=== PATIENT | male | born 1950 | race Caucasian/White ===

== ENCOUNTER 2016-08-25 10:45 | Inpatient (IN) | payer OTHER, BC ==
[2016-08-20 13:37] VITALS: BMI 24.1
[2016-08-25] MEDS ORDERED: MINERAL OIL 25 ML OIL ONE (13:01)
[2016-08-25] MEDS ORDERED: LIDOCAINE 1%/EPI 1:100000 (50 ML MULTI DOSE VIAL) ONE (13:01)
[2016-08-25] MEDS ORDERED: LIDOCAINE HCL/PF 2% SDV 5ML VIAL ONE (13:22)
[2016-08-25] MEDS ORDERED: ROCURONIUM BROMIDE 50 MG/5 ML VIAL ONE (13:22)
[2016-08-25] MEDS ORDERED: MIDAZOLAM HCL 2 MG/2 ML SINGLE DOSE VIAL ONE (13:22)
[2016-08-25] MEDS ORDERED: PROPOFOL 20 ML ONE (13:22)
[2016-08-25] MEDS ORDERED: ceFAZolin SODIUM 1 GM VIAL IVPB ONE (13:58)
[2016-08-25] MEDS ORDERED: ONDANSETRON 4 MG/2 ML VIAL ONE ×2 (14:07→17:15)
[2016-08-25] MEDS ORDERED: DEXAMETHASONE SOD PHOSPHATE 4 MG/1 ML VIAL ONE (14:07)
[2016-08-25] MEDS ORDERED: ceFAZolin SODIUM 1 GM VIAL ONE (14:07)
[2016-08-25] MEDS ORDERED: LIDOCAINE 1%/EPI 1:100000 (50 ML MULTI DOSE VIAL) INF ONE (14:28)
[2016-08-25] MEDS ORDERED: DESFLURANE GAS 240 ML BOTTLE IH ONE (15:40)
[2016-08-25] MEDS ORDERED: BACITRACIN 30 GM TUBE TOPICAL OINTMENT ONE (16:55)
[2016-08-25] MEDS ORDERED: ONDANSETRON 4 MG/2 ML VIAL IVPUSH PRN ×2 (18:01→19:10)
[2016-08-25] MEDS ORDERED: BACLOFEN 10 MG TABLET (FP) PO ONE ×2 (18:16→22:45)
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
[2016-08-25] MEDS: ASCORBIC ACID 500 MG TABLET (FP) PO SCH (22:47)
[2016-08-25] MEDS: GABAPENTIN 300 MG CAPSULE (FP) PO SCH (22:47)
[2016-08-25] MEDS: CEFAZOLIN 1 GM/D5W 50 ML IVPB SCH (22:47)
[2016-08-25] MEDS: DOCUSATE SODIUM 100 MG CAPSULE (FP) PO SCH (22:47)
[2016-08-26] MEDS ORDERED: CEFAZOLIN 1 GM/D5W 50 ML IVPB SCH (02:00)
[2016-08-26] MEDS: CEFAZOLIN 1 GM/D5W 50 ML IVPB SCH ×3 (04:02→17:19)
[2016-08-26] MEDS: DOCUSATE SODIUM 100 MG CAPSULE (FP) PO SCH ×3 (06:13→22:16)
[2016-08-26] MEDS ORDERED: PT OWN MED DRAWER 7, Y5N ONE (08:26)
[2016-08-26] MEDS: HEPARIN NA (PORCINE) 5,000 UNITS/ML 1ML VIAL SQ SCH ×3 (08:34→22:16)
[2016-08-26] MEDS: PYRIDOXINE HCL (B-6) 50 MG TABLET (FP) PO SCH (09:04)
[2016-08-26] MEDS: FERROUS SO4 325 MG TABLET (FP) PO SCH (09:04)
[2016-08-26] MEDS: CYANOCOBALAMIN 1,000 MCG TABLET (FP) PO SCH (09:04)
[2016-08-26] MEDS: ASCORBIC ACID 500 MG TABLET (FP) PO SCH ×2 (09:04→22:16)
[2016-08-26 12:04] LABS: BASOPHIL 0.5 % (0-2.0); EOSINOPHIL 1.7 % (0-4.5); MCH 29.5 pg (25.7-33.7); MCHC 32.7 g/dl (32.0-35.9); MEAN CELL VOLUME 90.1 fl (80-96); MEAN PLT VOLUME 8.3 fl (7.5-11.1); NEUTROPHILS 63.5 % (42.8-82.8); PLATELET COUNT 251 K/MM3 (134-434); RDW 15.4 % (11.9-15.9); WHITE BLOOD COUNT 7.7 K/mm3 (4.0-10.0)
--- NOTE | 2016-08-26 12:12 | PN ---
Progress Note (short form) - Note Progress Note: Anesthesia POD#1 S/P Sacral debridement & skin graft under GA prone position Patient did well,no N/V ,VSS,food is advanced. No pressure injuries. A/P No complications to anesthesia seen. Marilee Arauz.
[2016-08-26 12:45] LABS: CALCIUM 8.7 mg/dL (8.5-10.1); CREATININE 0.6 mg/dL (0.7-1.3)
--- NOTE | 2016-08-26 13:36 | PN ---
Progress Note (short form) - Note Progress Note: Post Day 1 Afebrile, awake alert, not in respiratory distress, no post op spasms On clinitron bed, looks comfortable no issues with lower back SHANTI drainage noted, minimal at the moment Selected Entries 08/25/16 08/26/16 22:00 08:00 Temperature 98.1 F Pulse Rate 90 Respiratory 18 18 Rate Blood Pressure 112/58 100/57 Laboratory Tests 08/26/16 12:01 WBC 7.7 Hgb 10.8 L D Hct 33.0 L Patient informed that the entire sacral bone could not be covered with muscle flap, large area and extensive scarring, partial grafting was done on the bone , very thin graft was chosen to assist early capillary filling Unknown whether more procedures will be required At present will continue on clinitron to assist healing and prevention of flap trauma and loss of graft . patient is paralyzed thus rotation is a problem as shear force may damage flap and graft Plan : Dressing change to evaluate all incisions and graft on Wednesday
--- NOTE | 2016-08-26 15:49 | PN ---
Physical Exam: SUBJECTIVE: Post op case of sacral flap OBJECTIVE: Vital Signs Period Temp Pulse Resp BP Sys/Garcia Pulse Ox Last 24 Hr 97.6 F-98.5 F 64-92 14-20 99-144/57-95 99-100 GENERAL: The patient is awake, alert, and fully oriented, in no acute distress. HEAD: Normal with no signs of trauma. EYES: PERRL, extraocular movements intact, sclera anicteric, conjunctiva clear. No ptosis. ENT: Ears normal, nares patent, oropharynx clear without exudates, moist mucous membranes. NECK: Trachea midline, full range of motion, supple. LUNGS: Breath sounds equal, clear to auscultation bilaterally, no wheezes, no crackles, no accessory muscle use. HEART: Regular rate and rhythm, S1, S2 without murmur, rub or gallop. ABDOMEN: Soft, nontender, nondistended, normoactive bowel sounds, colostomy bag in situ, ai present, bs +, midline scar present NEUROLOGICAL: Cranial nerves II-XII intact. Normal speech. Flaccid lower extremities, sensation absent. PSYCHIATRIC: Cooperative. Good eye contact. Appropriate mood and affect. SKIN: Sacral dressing clean and dry, drain with scant sanguinous output. Laboratory Results - last 24 hr 08/25/16 08/25/16 08/26/16 10:56 15:44 12:01 WBC RBC Hgb Hct MCV MCHC RDW Plt Count MPV Neutrophils % Lymphocytes % Monocytes % Eosinophils % Basophils % Sodium 140 Potassium 3.9 Chloride 105 Carbon Dioxide 28 Anion Gap 7 L BUN 14 D Creatinine 0.6 L D Random Glucose 84 Calcium 8.7 Antibody Identification Not Reportable Antigen Identification E Antigen - NEGATIVE 08/26/16 12:01 WBC 7.7 RBC 3.66 L Hgb 10.8 L D Hct 33.0 L MCV 90.1 MCHC 32.7 RDW 15.4 Plt Count 251 D MPV 8.3 Neutrophils % 63.5 Lymphocytes % 25.2 Monocytes % 9.1 Eosinophils % 1.7 Basophils % 0.5 Sodium Potassium Chloride Carbon Dioxide Anion Gap BUN Creatinine Random Glucose Calcium Antibody Identification Antigen Identification Active Medications Generic Name Dose Route Start Last Admin Trade Name Freq PRN Reason Stop Dose Admin Ascorbic Acid 500 mg 08/25/16 22:00 08/26/16 09:04 Vitamin C - PO 500 mg BID SREEKANTH Administration Cyanocobalamin 1,000 mcg 08/26/16 10:00 08/26/16 09:04 Vitamin B12 - PO 1,000 mcg DAILY SREEKANTH Administration Docusate Sodium 100 mg 08/25/16 22:00 08/26/16 13:58 Colace - PO 100 mg TID SREEKANTH Administration Ferrous Sulfate 325 mg 08/26/16 10:00 08/26/16 09:04 Feosol - PO 325 mg DAILY SREEKANTH Administration Gabapentin 600 mg 08/25/16 22:00 08/25/16 22:47 Neurontin - PO 600 mg HS SREEKANTH Administration Heparin Sodium (Porcine) 5,000 unit 08/26/16 08:00 08/26/16 13:58 Heparin - SQ 5,000 unit TID SREEKANTH Administration Cefazolin Sodium 50 mls @ 100 mls/hr 08/25/16 19:00 08/26/16 09:04 Ancef 1 Gm Premixed Ivpb - IVPB 08/28/16 18:59 100 mls/hr Q8H-IV SREEKANTH Administration Pyridoxine HCl 50 mg 08/26/16 10:00 08/26/16 09:04 Vitamin B6 - PO 50 mg DAILY SREEKANTH Administration ASSESSMENT/PLAN: 66 year old male admitted for post-operative management of sacral decubitus debridement/flap reconstruction/skin grafting. Sacral decubitus ulcer s/p flap and skin grafting wbc 7.7 on cefazolin 1gm iv 8hr Clinitron bed high protien diet plastic surgery on case fluid : orally allowed electrolyte : normal nutrition : high protein DVT pro on heparin gi pro : not required dispo : admit in med surg Visit type - Emergency Visit Emergency Visit: Yes ED Registration Date: 08/25/16 Care time: The patient presented to the Emergency Department on the above date and was hospitalized for further evaluation of their emergent condition. - New Patient This patient is new to me today: Yes Date on this admission: 08/26/16 - Critical Care Critical Care patient: No
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
[2016-08-26] MEDS: GABAPENTIN 300 MG CAPSULE (FP) PO SCH (22:16)
[2016-08-27] MEDS: CEFAZOLIN 1 GM/D5W 50 ML IVPB SCH ×3 (04:00→18:03)
[2016-08-27] MEDS: DOCUSATE SODIUM 100 MG CAPSULE (FP) PO SCH ×3 (06:12→21:22)
[2016-08-27] MEDS: HEPARIN NA (PORCINE) 5,000 UNITS/ML 1ML VIAL SQ SCH ×3 (06:12→21:22)
[2016-08-27 08:10] LABS: BASOPHIL 0.3 % (0-2.0); EOSINOPHIL 2.3 % (0-4.5); MCH 29.6 pg (25.7-33.7); MCHC 32.9 g/dl (32.0-35.9); MEAN PLT VOLUME 8.8 fl (7.5-11.1); NEUTROPHILS 63.8 % (42.8-82.8); PLATELET COUNT 220 K/MM3 (134-434); RDW 14.9 % (11.9-15.9); WHITE BLOOD COUNT 5.8 K/mm3 (4.0-10.0)
[2016-08-27] MEDS ORDERED: PT OWN MED DRAWER 7, Y5N ONE (09:23)
[2016-08-27] MEDS: PYRIDOXINE HCL (B-6) 50 MG TABLET (FP) PO SCH (09:26)
[2016-08-27] MEDS: FERROUS SO4 325 MG TABLET (FP) PO SCH (09:26)
[2016-08-27] MEDS: PANTOPRAZOLE 40 MG TABLET (FP) PO SCH (09:26)
[2016-08-27] MEDS: ASCORBIC ACID 500 MG TABLET (FP) PO SCH ×2 (09:26→21:22)
[2016-08-27] MEDS: CYANOCOBALAMIN 1,000 MCG TABLET (FP) PO SCH (09:26)
[2016-08-27] MEDS ORDERED: LACTULOSE 20 GM/30 ML UDC (FOR ORAL USE ONLY) PO SCH (10:00)
--- NOTE | 2016-08-27 12:16 | PN ---
Physical Exam: SUBJECTIVE: Patient seen and examined, feels better, states he takes laculose and pantoprazole every day. OBJECTIVE: Vital Signs Period Temp Pulse Resp BP Sys/Garcia Pulse Ox Last 24 Hr 97.9 F-98.5 F 71-73 18-20 101-103/56-65 99 GENERAL: The patient is awake, alert, and fully oriented, in no acute distress. HEAD: Normal with no signs of trauma. EYES: PERRL, extraocular movements intact, sclera anicteric, conjunctiva clear. No ptosis. ENT: Ears normal, nares patent, oropharynx clear without exudates, moist mucous membranes. NECK: Trachea midline, full range of motion, supple. LUNGS: Breath sounds equal, clear to auscultation bilaterally, no wheezes, no crackles, no accessory muscle use. HEART: Regular rate and rhythm, S1, S2 without murmur, rub or gallop. ABDOMEN: Soft, nontender, nondistended, normoactive bowel sounds, colostomy bag in situ, ai present, bs +, midline scar present NEUROLOGICAL: Cranial nerves II-XII intact. Normal speech. Flaccid lower extremities, sensation absent. PSYCHIATRIC: Cooperative. Good eye contact. Appropriate mood and affect. SKIN: Sacral dressing clean and dry, drain with scant sanguinous output. Laboratory Results - last 24 hr 08/26/16 08/26/16 08/27/16 12:01 12:01 06:30 WBC 7.7 5.8 RBC 3.66 L 3.50 L Hgb 10.8 L D 10.4 L Hct 33.0 L 31.5 L MCV 90.1 90.0 MCHC 32.7 32.9 RDW 15.4 14.9 Plt Count 251 D 220 MPV 8.3 8.8 Neutrophils % 63.5 63.8 Lymphocytes % 25.2 25.2 Monocytes % 9.1 8.4 Eosinophils % 1.7 2.3 Basophils % 0.5 0.3 Sodium 140 Potassium 3.9 Chloride 105 Carbon Dioxide 28 Anion Gap 7 L BUN 14 D Creatinine 0.6 L D Random Glucose 84 Calcium 8.7 Active Medications Generic Name Dose Route Start Last Admin Trade Name Freq PRN Reason Stop Dose Admin Ascorbic Acid 500 mg 08/25/16 22:00 08/27/16 09:26 Vitamin C - PO 500 mg BID SREEKANTH Administration Cyanocobalamin 1,000 mcg 08/26/16 10:00 08/27/16 09:26 Vitamin B12 - PO 1,000 mcg DAILY SREEKANTH Administration Docusate Sodium 100 mg 08/25/16 22:00 08/27/16 06:12 Colace - PO 100 mg TID SREEKANTH Administration Ferrous Sulfate 325 mg 08/26/16 10:00 08/27/16 09:26 Feosol - PO 325 mg DAILY SREEKANTH Administration Gabapentin 600 mg 08/25/16 22:00 08/26/16 22:16 Neurontin - PO 600 mg HS SREEKANTH Administration Heparin Sodium (Porcine) 5,000 unit 08/26/16 08:00 08/27/16 06:12 Heparin - SQ 5,000 unit TID SREEKANTH Administration Cefazolin Sodium 50 mls @ 100 mls/hr 08/25/16 19:00 08/27/16 09:26 Ancef 1 Gm Premixed Ivpb - IVPB 08/28/16 18:59 100 mls/hr Q8H-IV SREEKANTH Administration Lactulose 10 gm 08/27/16 10:00 08/27/16 09:26 Cephulac (Oral Use) PO 10 gm DAILY SREEKANTH Administration Pantoprazole Sodium 40 mg 08/27/16 10:00 08/27/16 09:26 Protonix - PO 40 mg DAILY SREEKANTH Administration Pyridoxine HCl 50 mg 08/26/16 10:00 08/27/16 09:26 Vitamin B6 - PO 50 mg DAILY SREEKANTH Administration ASSESSMENT/PLAN: 66 year old male admitted for post-operative management of sacral decubitus debridement/flap reconstruction/skin grafting. Sacral decubitus ulcer s/p flap and skin grafting wbc 7.7 on cefazolin 1gm iv 8hr Clinitron bed high protien diet plastic surgery on case, next dressing change on wednesday fluid : orally allowed electrolyte : normal nutrition : high protein DVT pro on heparin gi pro : not required dispo : admit in med surg Visit type - Emergency Visit Emergency Visit: Yes ED Registration Date: 08/25/16 Care time: The patient presented to the Emergency Department on the above date and was hospitalized for further evaluation of their emergent condition. - New Patient This patient is new to me today: No - Critical Care Critical Care patient: No
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
[2016-08-27] MEDS: LACTULOSE 20 GM/30 ML UDC (FOR ORAL USE ONLY) PO SCH (21:21)
[2016-08-27] MEDS: GABAPENTIN 300 MG CAPSULE (FP) PO SCH (21:22)
[2016-08-28] MEDS: CEFAZOLIN 1 GM/D5W 50 ML IVPB SCH ×3 (01:30→18:26)
[2016-08-28] MEDS: DOCUSATE SODIUM 100 MG CAPSULE (FP) PO SCH ×3 (06:18→21:07)
[2016-08-28] MEDS: HEPARIN NA (PORCINE) 5,000 UNITS/ML 1ML VIAL SQ SCH ×3 (06:18→21:07)
--- NOTE | 2016-08-28 08:22 | PN ---
Physical Exam: SUBJECTIVE: Patient seen and examined. feels uncomfortable due to lack of bowel movements for past four days. maintains good appetite, continues to pass gas denies fever, chest pain, SOB. OBJECTIVE: Vital Signs Period Temp Pulse Resp BP Sys/Garcia Pulse Ox Last 24 Hr 98.0 F-98.8 F 60-69 20-20 101-113/61-69 100-100 GENERAL: The patient is awake, alert, and fully oriented, in no acute distress. HEAD: Normal with no signs of trauma. EYES: extraocular movements intact, sclera anicteric, conjunctiva clear. ENT: Ears normal, nares patent, oropharynx clear without exudates, moist mucous membranes. NECK: Trachea midline, full range of motion, supple. LUNGS: Breath sounds clear. HEART: Regular rate and rhythm, S1, S2 without murmur, rub or gallop. ABDOMEN: Soft, nontender, nondistended, normoactive bowel sounds, ostomy bag in place without surrounding skin breakdown or erythema, pink moist mucus membrane with gas in bag - no fecal matter. EXTREMITIES: cool, atrophy b/l. NEUROLOGICAL: Normal speech, non-ambulatory PSYCH: Normal mood, normal affect. gold(condom cath) in place Active Medications Generic Name Dose Route Start Last Admin Trade Name Freq PRN Reason Stop Dose Admin Ascorbic Acid 500 mg 08/25/16 22:00 08/27/16 21:22 Vitamin C - PO 500 mg BID SREEKANTH Administration Cyanocobalamin 1,000 mcg 08/26/16 10:00 08/27/16 09:26 Vitamin B12 - PO 1,000 mcg DAILY SREEKANTH Administration Docusate Sodium 100 mg 08/25/16 22:00 08/28/16 06:18 Colace - PO 100 mg TID SREEKANTH Administration Ferrous Sulfate 325 mg 08/26/16 10:00 08/27/16 09:26 Feosol - PO 325 mg DAILY SREEKANTH Administration Gabapentin 600 mg 08/25/16 22:00 08/27/16 21:22 Neurontin - PO 600 mg HS SREEKANTH Administration Heparin Sodium (Porcine) 5,000 unit 08/26/16 08:00 08/28/16 06:18 Heparin - SQ 5,000 unit TID SREEKANTH Administration Cefazolin Sodium 50 mls @ 100 mls/hr 08/25/16 19:00 08/28/16 01:30 Ancef 1 Gm Premixed Ivpb - IVPB 08/28/16 18:59 100 mls/hr Q8H-IV SREEKANTH Administration Lactulose 10 gm 08/27/16 22:00 08/27/16 21:21 Cephulac (Oral Use) PO 10 gm BID SREEKANTH Administration Pantoprazole Sodium 40 mg 08/27/16 10:00 08/27/16 09:26 Protonix - PO 40 mg DAILY SREEKANTH Administration Pyridoxine HCl 50 mg 08/26/16 10:00 08/27/16 09:26 Vitamin B6 - PO 50 mg DAILY SREEKANTH Administration ASSESSMENT/PLAN: 66 yr old man with HTN, paraplegia, h/o of PUD with GI bleed admitted for skin graft of sacral decubitus ulcer. #Skin graft POD#3 - wound care/dressing change as per Dr. Arenas - ancef 1gm 08/25-08/28 - vitamin c 500mg qd #Constipation - lactulose 10gm po bid - colace 100mg po tid #anemia (normochrom/normocytic, chronic) - vitamin b12 po daily - vit b6 50mg po daily - feosol 325 po daily #hx of PUD - protonix 40mg po daily #DVT prophylaxis - Hep 5000 suq TID #pain - gabapentin 600mg po hs #Diet - high protein diet Visit type - Emergency Visit Emergency Visit: No - New Patient This patient is new to me today: Yes Date on this admission: 08/28/16 - Critical Care Critical Care patient: No - Discharge Referral Referred to [facility] No
[2016-08-28] MEDS ORDERED: PT OWN MED DRAWER 7, Y5N ONE (09:36)
[2016-08-28] MEDS: PYRIDOXINE HCL (B-6) 50 MG TABLET (FP) PO SCH (09:40)
[2016-08-28] MEDS: PANTOPRAZOLE 40 MG TABLET (FP) PO SCH (09:40)
[2016-08-28] MEDS: FERROUS SO4 325 MG TABLET (FP) PO SCH (09:40)
[2016-08-28] MEDS: ASCORBIC ACID 500 MG TABLET (FP) PO SCH ×2 (09:40→21:07)
[2016-08-28] MEDS: CYANOCOBALAMIN 1,000 MCG TABLET (FP) PO SCH (09:40)
[2016-08-28] MEDS: LACTULOSE 20 GM/30 ML UDC (FOR ORAL USE ONLY) PO SCH ×2 (09:41→21:12)
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
--- NOTE | 2016-08-28 13:12 | PN ---
Progress Note (short form) - Note Progress Note: Post Op day 3 Flap closure and skin graft over sacral bone/periosteum Awake alert not in any distress. Does c/o not moving his bowel No cramps has colostomy Dressing changed Graft pink and adherent, flap circulation intact, all suture lines intact, donor site clean , No active infection, on odor no pus New dressing done Selected Entries 08/28/16 08:00 Temperature 98 F Pulse Rate 76 Respiratory 18 Rate Blood Pressure 97/60 Laboratory Tests 08/27/16 06:30 WBC 5.8 Hgb 10.4 L Hct 31.5 L Plan : 1 Skin graft is at most delicate stage of healing , any movement will dislodge the graft 2. Flap also very early stage of healing and cannot tolerate any pressure, needs clinitron 3. Dr Escobar note read and appreciated, aware of no BM and addressing it with lactulose 4. Patient informed of my plans...continue clinitron bed for another week than SNF with low alternating pressure relief bed
[2016-08-28] MEDS: MAGNESIUM HYDROX 2400MG/30ML ORAL SUSPENSION 30 ML CUP PO PRN ×2 (14:02→21:07)
[2016-08-28] MEDS: GABAPENTIN 300 MG CAPSULE (FP) PO SCH (21:07)
[2016-08-29] MEDS: HEPARIN NA (PORCINE) 5,000 UNITS/ML 1ML VIAL SQ SCH ×3 (06:01→22:00)
[2016-08-29] MEDS: DOCUSATE SODIUM 100 MG CAPSULE (FP) PO SCH ×3 (06:01→21:59)
[2016-08-29] MEDS: MAGNESIUM HYDROX 2400MG/30ML ORAL SUSPENSION 30 ML CUP PO PRN (06:06)
[2016-08-29] MEDS: PYRIDOXINE HCL (B-6) 50 MG TABLET (FP) PO SCH (09:09)
[2016-08-29] MEDS: FERROUS SO4 325 MG TABLET (FP) PO SCH (09:09)
[2016-08-29] MEDS: LACTULOSE 20 GM/30 ML UDC (FOR ORAL USE ONLY) PO SCH ×2 (09:09→21:59)
[2016-08-29] MEDS: ASCORBIC ACID 500 MG TABLET (FP) PO SCH ×2 (09:09→21:59)
[2016-08-29] MEDS: PANTOPRAZOLE 40 MG TABLET (FP) PO SCH (09:10)
[2016-08-29] MEDS: CYANOCOBALAMIN 1,000 MCG TABLET (FP) PO SCH (09:10)
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
[2016-08-29] MEDS: POLYETHYLENE GLYCOL 3350 119 GM BTL PO SCH ×2 (14:20→22:04)
[2016-08-29] MEDS: GABAPENTIN 300 MG CAPSULE (FP) PO SCH (21:59)
[2016-08-30] MEDS: HEPARIN NA (PORCINE) 5,000 UNITS/ML 1ML VIAL SQ SCH ×3 (06:17→21:42)
[2016-08-30] MEDS: DOCUSATE SODIUM 100 MG CAPSULE (FP) PO SCH ×3 (06:17→21:41)
[2016-08-30] MEDS: PYRIDOXINE HCL (B-6) 50 MG TABLET (FP) PO SCH (10:31)
[2016-08-30] MEDS: FERROUS SO4 325 MG TABLET (FP) PO SCH (10:31)
[2016-08-30] MEDS: PANTOPRAZOLE 40 MG TABLET (FP) PO SCH (10:31)
[2016-08-30] MEDS: CYANOCOBALAMIN 1,000 MCG TABLET (FP) PO SCH (10:31)
[2016-08-30] MEDS: ASCORBIC ACID 500 MG TABLET (FP) PO SCH ×2 (10:31→21:41)
[2016-08-30] MEDS: LACTULOSE 20 GM/30 ML UDC (FOR ORAL USE ONLY) PO SCH ×2 (10:31→21:43)
[2016-08-30] MEDS: POLYETHYLENE GLYCOL 3350 119 GM BTL PO SCH ×2 (10:35→21:42)
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
[2016-08-30] MEDS: GABAPENTIN 300 MG CAPSULE (FP) PO SCH (21:41)
[2016-08-31] MEDS: DOCUSATE SODIUM 100 MG CAPSULE (FP) PO SCH ×3 (06:29→22:14)
[2016-08-31] MEDS: HEPARIN NA (PORCINE) 5,000 UNITS/ML 1ML VIAL SQ SCH ×3 (06:30→22:14)
--- NOTE | 2016-08-31 08:32 | PN ---
Physical Exam: SUBJECTIVE: Patient seen and examined Feels more comfortable since having bowel movement. will not be taking miralax until he feels he needs it again. Denies SOB, chest pain. will use incentive spirometer hourly. OBJECTIVE: Vital Signs Period Temp Pulse Resp BP Sys/Garcia Pulse Ox Last 24 Hr 97.4 F-98.6 F 63-81 20-20 81-96/50-61 97 GENERAL: The patient is awake, alert, and fully oriented, in no acute distress. HEAD: Normal with no signs of trauma. EYES: extraocular movements intact, sclera anicteric, conjunctiva clear ENT: Ears normal, nares patent, oropharynx clear without exudates, moist mucous membranes. NECK: Trachea midline, full range of motion, supple. LUNGS: Breath sounds equal, fine crackles at b/l bases. HEART: Regular rate and rhythm, S1, S2 without murmur, rub or gallop. ABDOMEN: Soft, nontender, nondistended, +bowel sounds, colostomy with dark nonbloody stool, surrounding area without erythema. EXTREMITIES: 2+ pulses in UE, warm, well-perfused. b/l LE cool with atrophy, pt paraplegic. NEUROLOGICAL: Normal speech, PSYCH: Normal mood, normal affect. SKIN: Warm, dry, normal turgor, no rashes or lesions noted Condom gold in place - clear yellow urine SHANTI drain: serosanginous fluid Active Medications Generic Name Dose Route Start Last Admin Trade Name Freq PRN Reason Stop Dose Admin Amino Acids 30 ml 08/31/16 17:30 Prostat Sugar-Free Packet - PO BID@0800,1730 [facility] Ascorbic Acid 500 mg 08/25/16 22:00 08/31/16 09:41 Vitamin C - PO 500 mg BID SREEKANTH Administration Cyanocobalamin 1,000 mcg 08/26/16 10:00 08/31/16 09:41 Vitamin B12 - PO 1,000 mcg DAILY SREEKANTH Administration Docusate Sodium 100 mg 08/25/16 22:00 08/31/16 06:29 Colace - PO 100 mg TID SREEKANTH Administration Ferrous Sulfate 325 mg 08/26/16 10:00 08/31/16 09:41 Feosol - PO 325 mg DAILY SREEKANTH Administration Gabapentin 600 mg 08/25/16 22:00 08/30/16 21:41 Neurontin - PO 600 mg HS SREEKANTH Administration Heparin Sodium (Porcine) 5,000 unit 08/26/16 08:00 08/31/16 06:30 Heparin - SQ 5,000 unit TID SREEKANTH Administration Lactulose 10 gm 08/27/16 22:00 08/31/16 09:40 Cephulac (Oral Use) PO 10 gm BID SREEKANTH Administration Magnesium Hydroxide 30 ml 08/28/16 12:06 08/29/16 06:06 Milk Of Magnesia - PO 30 ml Q8H PRN Administration INDIGESTION Pantoprazole Sodium 40 mg 08/27/16 10:00 08/31/16 09:41 Protonix - PO 40 mg DAILY SREEKANTH Administration Polyethylene Glycol 17 gm 08/29/16 12:00 08/31/16 09:41 Miralax (For Daily Use) - PO Not Given BID SREEKANTH Pyridoxine HCl 50 mg 08/26/16 10:00 08/31/16 09:41 Vitamin B6 - PO 50 mg DAILY SREEKANTH Administration CBC, BMP 08/31/16 11:30 08/31/16 11:30 ASSESSMENT/PLAN: 66 yr old man with HTN, paraplegia, h/o of PUD with GI bleed admitted for skin graft of sacral decubitus ulcer. - pt becoming hypotensive, 81-96/50-61, encourage fluid intake, cbc and bmp wnl , no leucocytosis as sign of infection or elevation in cr to indicate pre-renal hypoperfusion. #Skin graft POD#6 - wound care/dressing change as per Dr. Arenas - s/p ancef 1gm 08/25-08/28 - vitamin c 500mg qd #Constipation - lactulose 10gm po bid - colace 100mg po tid - miralax 17gm po bid #anemia (normochrom/normocytic, chronic) - vitamin b12 po daily - vit b6 50mg po daily - feosol 325 po daily #hx of PUD - protonix 40mg po daily #DVT prophylaxis - Hep 5000 subq TID #pain - gabapentin 600mg po hs #Diet - high protein diet, prostat 30ml/bid Visit type - Emergency Visit Emergency Visit: No - New Patient This patient is new to me today: No - Critical Care Critical Care patient: No - Discharge Referral Referred to [facility] Med P.C[facility] No
[2016-08-31] MEDS ORDERED: PT OWN MED DRAWER 7, Y5N ONE (09:38)
[2016-08-31] MEDS: LACTULOSE 20 GM/30 ML UDC (FOR ORAL USE ONLY) PO SCH ×2 (09:40→22:13)
[2016-08-31] MEDS: FERROUS SO4 325 MG TABLET (FP) PO SCH (09:41)
[2016-08-31] MEDS: CYANOCOBALAMIN 1,000 MCG TABLET (FP) PO SCH (09:41)
[2016-08-31] MEDS: PANTOPRAZOLE 40 MG TABLET (FP) PO SCH (09:41)
[2016-08-31] MEDS: ASCORBIC ACID 500 MG TABLET (FP) PO SCH ×2 (09:41→22:14)
[2016-08-31] MEDS: POLYETHYLENE GLYCOL 3350 119 GM BTL PO SCH ×2 (09:41→22:18)
[2016-08-31] MEDS: PYRIDOXINE HCL (B-6) 50 MG TABLET (FP) PO SCH (09:41)
[2016-08-31 11:51] LABS: BASOPHIL 0.3 % (0-2.0); MCH 29.8 pg (25.7-33.7); MCHC 33.2 g/dl (32.0-35.9); MEAN CELL VOLUME 89.6 fl (80-96); MEAN PLT VOLUME 7.9 fl (7.5-11.1); NEUTROPHILS 65.1 % (42.8-82.8); PLATELET COUNT 332 K/MM3 (134-434); RDW 14.9 % (11.9-15.9); WHITE BLOOD COUNT 7.2 K/mm3 (4.0-10.0)
[2016-08-31 12:16] LABS: CALCIUM 9.4 mg/dL (8.5-10.1); CREATININE 0.5 mg/dL (0.7-1.3)
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
[2016-08-31] MEDS: AMINO ACIDS/PROTEIN HYDROLYS SUGAR-FREE 30 ML PACKET PO SCH (17:47)
[2016-08-31] MEDS: GABAPENTIN 300 MG CAPSULE (FP) PO SCH (22:14)
[2016-09-01] MEDS: HEPARIN NA (PORCINE) 5,000 UNITS/ML 1ML VIAL SQ SCH ×3 (06:05→22:51)
[2016-09-01] MEDS: DOCUSATE SODIUM 100 MG CAPSULE (FP) PO SCH ×3 (06:05→22:51)
[2016-09-01] MEDS: AMINO ACIDS/PROTEIN HYDROLYS SUGAR-FREE 30 ML PACKET PO SCH ×2 (09:04→17:12)
[2016-09-01] MEDS ORDERED: PT OWN MED DRAWER 7, Y5N ONE (09:28)
[2016-09-01] MEDS: ASCORBIC ACID 500 MG TABLET (FP) PO SCH ×2 (09:47→22:51)
[2016-09-01] MEDS: CYANOCOBALAMIN 1,000 MCG TABLET (FP) PO SCH (09:47)
[2016-09-01] MEDS: PANTOPRAZOLE 40 MG TABLET (FP) PO SCH (09:47)
[2016-09-01] MEDS: FERROUS SO4 325 MG TABLET (FP) PO SCH (09:47)
[2016-09-01] MEDS: PYRIDOXINE HCL (B-6) 50 MG TABLET (FP) PO SCH (09:47)
[2016-09-01] MEDS: LACTULOSE 20 GM/30 ML UDC (FOR ORAL USE ONLY) PO SCH ×2 (09:47→22:50)
[2016-09-01] MEDS: POLYETHYLENE GLYCOL 3350 119 GM BTL PO SCH ×3 (09:48→22:54)
--- NOTE | 2016-09-01 13:30 | PATH ---
Surgical Pathology Report Patient Name: ADELA BONNER [facility]. Rec. #: [id number] /Age/Gender: 1950 (Age: 66) / M Account: [id number] Location: [address] [place] [address]/[facility] Taken: 08/25/2016 Received: 08/31/2016 Reported: 09/01/2016 Physicians: Shayla Arenas M.D. Specimen(s) Received A: SACRAL DECUBITUS B: BASE OF ULCER Clinical History Grade 4 decubitus ulcer Final Diagnosis A. SOFT TISSUE, SACRAL DECUBITUS, EXCISION: ULCERATED AND NECROTIC SKIN AND UNDERLYING SOFT TISSUE WITH ACUTE AND CHRONIC INFLAMMATION WITH FOCI OF GANGRENOUS NECROSIS AND INFLAMED GRANULATION TISSUE. B. BASE OF SACRAL ULCER, EXCISION: SKIN WITH ULCERATION AND NECROSIS, UNDERLYING FIBROCONNECTIVE AND FIBROADIPOSE TISSUE WITH ACUTE AND CHRONIC INFLAMMATION, FIBROSIS, FOCI OF GANGRENOUS NECROSIS AND INFLAMED GRANULATION TISSUE. Electronically Signed Mick Grimm M.D. Gross Description A. Received in formalin, labeled "sacral decubitus" is a 6.5 x 6.0 x 0.8 cm aggregate of multiple masterson, irregular, unoriented portions of focally necrotic skin. [employer] sections are submitted in one cassette. B. Received in formalin, labeled "base of ulcer (sacral)," is an 8.0 x 2.7 x 0.9 cm masterson, irregular, focally necrotic portion of skin. [employer] sections are submitted in one cassette. DL/08/31/201608/31/2016
--- NOTE | 2016-09-01 14:02 | PN ---
Physical Exam: SUBJECTIVE: Patient seen and examined. feels well. abdominal feels better, colostomy functioning. has good appetite. denies VIERA, lightheadedness, chest pain, SOB. OBJECTIVE: Vital Signs Period Temp Pulse Resp BP Sys/Garcia Pulse Ox Last 24 Hr 97.9 F-99.1 F 67-85 16-20 88-104/49-57 100-100 GENERAL: The patient is awake, alert, and fully oriented, in no acute distress. HEAD: Normal with no signs of trauma. EYES: extraocular movements intact, sclera anicteric, conjunctiva clear. ENT: Ears normal, nares patent, oropharynx clear without exudates, moist mucous membranes. NECK: Trachea midline, full range of motion, supple. LUNGS: Breath sounds equal, clear. HEART: Regular rate and rhythm, S1, S2 without murmur, rub or gallop. ABDOMEN: Soft, nontender, nondistended, +bowel sounds, colostomy with dark nonbloody stool, surrounding area without erythema. EXTREMITIES: 2+ pulses in UE, warm, well-perfused. b/l LE cool with atrophy, pt paraplegic. no skin breakdown. NEUROLOGICAL: Normal speech, PSYCH: Normal mood, normal affect. SKIN: Warm, dry, normal turgor, no rashes or lesions noted. left shoulder with small raised mass covered with gauze, nontender, no surrounding erythema. Condom gold in place - clear yellow urine SHANTI drain: serosanginous fluid Active Medications Generic Name Dose Route Start Last Admin Trade Name Tiagoq PRN Reason Stop Dose Admin Amino Acids 30 ml 08/31/16 17:30 09/01/16 09:04 Prostat Sugar-Free Packet - PO 30 ml BID@0800,1730 SREEKANTH Administration Ascorbic Acid 500 mg 08/25/16 22:00 09/01/16 09:47 Vitamin C - PO 500 mg BID SREEKANTH Administration Cyanocobalamin 1,000 mcg 08/26/16 10:00 09/01/16 09:47 Vitamin B12 - PO 1,000 mcg DAILY SREEKANTH Administration Docusate Sodium 100 mg 08/25/16 22:00 09/01/16 06:05 Colace - PO 100 mg TID SREEKANTH Administration Ferrous Sulfate 325 mg 08/26/16 10:00 09/01/16 09:47 Feosol - PO 325 mg DAILY SREEKANTH Administration Gabapentin 600 mg 08/25/16 22:00 08/31/16 22:14 Neurontin - PO 600 mg HS SREEKANTH Administration Heparin Sodium (Porcine) 5,000 unit 08/26/16 08:00 09/01/16 06:05 Heparin - SQ 5,000 unit TID SREEKANTH Administration Lactulose 10 gm 08/27/16 22:00 09/01/16 09:47 Cephulac (Oral Use) PO 10 gm BID SREEKANTH Administration Magnesium Hydroxide 30 ml 08/28/16 12:06 08/29/16 06:06 Milk Of Magnesia - PO 30 ml Q8H PRN Administration INDIGESTION Pantoprazole Sodium 40 mg 08/27/16 10:00 09/01/16 09:47 Protonix - PO 40 mg DAILY SREEKANTH Administration Polyethylene Glycol 17 gm 08/29/16 12:00 09/01/16 09:48 Miralax (For Daily Use) - PO Not Given BID SREEKANTH Pyridoxine HCl 50 mg 08/26/16 10:00 09/01/16 09:47 Vitamin B6 - PO 50 mg DAILY SREEKANTH Administration ASSESSMENT/PLAN: 66 yr old man with HTN, paraplegia, h/o of PUD with GI bleed admitted for skin graft of sacral decubitus ulcer. - hypotension improved #Skin graft POD#7 - wound care/dressing change as per Dr. Arenas - s/p ancef 1gm 08/25-08/28 - vitamin c 500mg qd #Constipation - lactulose 10gm po bid - colace 100mg po tid - miralax 17gm po bid (patient will take as needed) #anemia (normochrom/normocytic, chronic) - vitamin b12 po daily - vit b6 50mg po daily - feosol 325 po daily #hx of PUD - protonix 40mg po daily #DVT prophylaxis - Hep 5000 subq TID #pain - gabapentin 600mg po hs #Diet - high protein diet, prostat 30ml/bid Visit type - Emergency Visit Emergency Visit: No - New Patient This patient is new to me today: No - Critical Care Critical Care patient: No
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
[2016-09-01] MEDS: GABAPENTIN 300 MG CAPSULE (FP) PO SCH (22:51)
[2016-09-02] MEDS: HEPARIN NA (PORCINE) 5,000 UNITS/ML 1ML VIAL SQ SCH ×3 (06:48→21:15)
[2016-09-02] MEDS: DOCUSATE SODIUM 100 MG CAPSULE (FP) PO SCH ×3 (06:50→21:15)
--- NOTE | 2016-09-02 09:03 | PN ---
Physical Exam: SUBJECTIVE: Patient seen and examined feels well. no complaints. ostomy is functioning. has good appetite. denies chest pain, sob, fever. OBJECTIVE: Vital Signs Period Temp Pulse Resp BP Sys/Garcia Pulse Ox Last 24 Hr 97.9 F-98.4 F 66-79 18-19 94-104/49-57 100 GENERAL: The patient is awake, alert, and fully oriented, in no acute distress. HEAD: Normal with no signs of trauma. EYES: extraocular movements intact, sclera anicteric, conjunctiva clear. ENT: Ears normal, nares patent, oropharynx clear without exudates, moist mucous membranes. NECK: Trachea midline, full range of motion, supple. LUNGS: Breath sounds equal, clear. HEART: Regular rate and rhythm, S1, S2 without murmur, rub or gallop. ABDOMEN: Soft, nontender, nondistended, +bowel sounds, colostomy with dark nonbloody stool, surrounding area without erythema. EXTREMITIES: 2+ pulses in UE, warm, well-perfused. b/l LE cool with atrophy, pt paraplegic. no skin breakdown. dry skin on b/l feet and legs. NEUROLOGICAL: Normal speech, PSYCH: Normal mood, normal affect. SKIN: Warm, dry, normal turgor, no rashes or lesions noted. left shoulder with small raised mass covered with gauze, nontender, no surrounding erythema, no discharge. Condom gold in place - sl cloudy yellow urine SHANTI drain: serosanginous fluid, 5cc/24hr DECUBITUS: skin graft pink, sacrum with healing ulcer, perfusing/healing well. no surrounding erythema or discharge. Active Medications Generic Name Dose Route Start Last Admin Trade Name Tiagoq PRN Reason Stop Dose Admin Amino Acids 30 ml 08/31/16 17:30 09/01/16 17:12 Prostat Sugar-Free Packet - PO 30 ml BID@0800,1730 SREEKANTH Administration Ascorbic Acid 500 mg 08/25/16 22:00 09/01/16 22:51 Vitamin C - PO 500 mg BID SREEKANTH Administration Cyanocobalamin 1,000 mcg 08/26/16 10:00 09/01/16 09:47 Vitamin B12 - PO 1,000 mcg DAILY SREEKANTH Administration Docusate Sodium 100 mg 08/25/16 22:00 09/02/16 06:50 Colace - PO 100 mg TID SREEKANTH Administration Ferrous Sulfate 325 mg 08/26/16 10:00 09/01/16 09:47 Feosol - PO 325 mg DAILY SREEKANTH Administration Gabapentin 600 mg 08/25/16 22:00 09/01/16 22:51 Neurontin - PO 600 mg HS SREEKANTH Administration Heparin Sodium (Porcine) 5,000 unit 08/26/16 08:00 09/02/16 06:48 Heparin - SQ 5,000 unit TID SREEKANTH Administration Lactulose 10 gm 08/27/16 22:00 09/01/16 22:50 Cephulac (Oral Use) PO 10 gm BID SREEKANTH Administration Magnesium Hydroxide 30 ml 08/28/16 12:06 08/29/16 06:06 Milk Of Magnesia - PO 30 ml Q8H PRN Administration INDIGESTION Pantoprazole Sodium 40 mg 08/27/16 10:00 09/01/16 09:47 Protonix - PO 40 mg DAILY SREEKANTH Administration Polyethylene Glycol 17 gm 08/29/16 12:00 09/01/16 22:54 Miralax (For Daily Use) - PO 17 gm BID SREEKANTH Administration Pyridoxine HCl 50 mg 08/26/16 10:00 09/01/16 09:47 Vitamin B6 - PO 50 mg DAILY SREEKANTH Administration ASSESSMENT/PLAN: 66 yr old man with HTN, paraplegia, h/o of PUD with GI bleed admitted for skin graft of sacral decubitus ulcer. - wound dressing changed today with staple removal - discussed possible d/c with Dr. Arenas and patient today. Likely Wednesday to [facility] if bed available, since Dr. Arenas will be able to visit pt at [facility] and graft will require close monitoring. #Skin graft POD#8 - wound care/dressing change as per Dr. Arenas - s/p ancef 1gm 08/25-08/28 - vitamin c 500mg qd #Constipation - resolved - lactulose 10gm po bid - colace 100mg po tid - miralax 17gm po bid (patient will take as needed) #anemia (normochrom/normocytic, chronic) - vitamin b12 po daily - vit b6 50mg po daily - feosol 325 po daily #hx of PUD - protonix 40mg po daily #DVT prophylaxis - Hep 5000 subq TID #pain - gabapentin 600mg po hs #Diet - high protein diet, prostat 30ml/bid. Visit type - Emergency Visit Emergency Visit: No - New Patient This patient is new to me today: No - Critical Care Critical Care patient: No - Discharge Referral Referred to [facility] Med P.C.: No
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
[2016-09-02] MEDS ORDERED: PT OWN MED DRAWER 7, Y5N ONE (09:25)
[2016-09-02] MEDS: PANTOPRAZOLE 40 MG TABLET (FP) PO SCH (09:27)
[2016-09-02] MEDS: ASCORBIC ACID 500 MG TABLET (FP) PO SCH ×2 (09:27→21:15)
[2016-09-02] MEDS: CYANOCOBALAMIN 1,000 MCG TABLET (FP) PO SCH (09:27)
[2016-09-02] MEDS: FERROUS SO4 325 MG TABLET (FP) PO SCH (09:27)
[2016-09-02] MEDS: AMINO ACIDS/PROTEIN HYDROLYS SUGAR-FREE 30 ML PACKET PO SCH ×2 (09:27→16:47)
[2016-09-02] MEDS: PYRIDOXINE HCL (B-6) 50 MG TABLET (FP) PO SCH (09:27)
[2016-09-02] MEDS: LACTULOSE 20 GM/30 ML UDC (FOR ORAL USE ONLY) PO SCH ×2 (09:27→21:14)
[2016-09-02] MEDS: POLYETHYLENE GLYCOL 3350 119 GM BTL PO SCH ×2 (09:33→21:15)
--- NOTE | 2016-09-02 14:21 | PN ---
Progress Note (short form) - Note Progress Note: Post Op 9 awake alert , no c/o Dressing changed with nurses Flap looks good, all suture lines intact, graft pink adherent SHANTI drain minimal drainage ..SHANTI removed, partial staple removal Dressing done Selected Entries 09/02/16 13:24 Temperature 98.1 F Pulse Rate 70 Plan : Continue Cl[place]ron bed Possible discharge to SNF but need a bed with low pressure alternating ability approved for Grave IV pressure ulcers In this patient it is critical for a low pressure mattress due to his paraplegia..to loose flap or graft at stage will be devastating His transportation will need to be done diligently to prevent separation of incision lines and any shear forces All questions answered Dr Arenas
[2016-09-02] MEDS: GABAPENTIN 300 MG CAPSULE (FP) PO SCH (21:15)
[2016-09-03] MEDS: DOCUSATE SODIUM 100 MG CAPSULE (FP) PO SCH ×3 (06:04→22:13)
[2016-09-03] MEDS: HEPARIN NA (PORCINE) 5,000 UNITS/ML 1ML VIAL SQ SCH ×3 (06:05→22:13)
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
[2016-09-03] MEDS ORDERED: PT OWN MED DRAWER 7, Y5N ONE (09:34)
[2016-09-03] MEDS: AMINO ACIDS/PROTEIN HYDROLYS SUGAR-FREE 30 ML PACKET PO SCH ×2 (09:37→16:48)
[2016-09-03] MEDS: LACTULOSE 20 GM/30 ML UDC (FOR ORAL USE ONLY) PO SCH ×2 (09:38→22:13)
[2016-09-03] MEDS: PANTOPRAZOLE 40 MG TABLET (FP) PO SCH (09:39)
[2016-09-03] MEDS: PYRIDOXINE HCL (B-6) 50 MG TABLET (FP) PO SCH (09:39)
[2016-09-03] MEDS: ASCORBIC ACID 500 MG TABLET (FP) PO SCH ×2 (09:39→22:13)
[2016-09-03] MEDS: CYANOCOBALAMIN 1,000 MCG TABLET (FP) PO SCH (09:40)
[2016-09-03] MEDS: FERROUS SO4 325 MG TABLET (FP) PO SCH (09:40)
[2016-09-03] MEDS: POLYETHYLENE GLYCOL 3350 119 GM BTL PO SCH ×2 (09:43→22:14)
--- NOTE | 2016-09-03 11:22 | PN ---
Physical Exam: SUBJECTIVE: Patient seen and examined feels well. no complaints. ostomy functions as his usual, has good appetite but is limited his diet to salads to prevent weight gain as he is not active. says he has many problem if he gains any weight. denies chest pain, difficulty breathing, nausea, diarrhea. OBJECTIVE: Vital Signs Period Temp Pulse Resp BP Sys/Garcia Pulse Ox Last 24 Hr 97.6 F-98.1 F 70-82 16-20 92-104/51-54 100 GENERAL: The patient is awake, alert, and fully oriented, in no acute distress. HEAD: Normal with no signs of trauma. EYES: extraocular movements intact, sclera anicteric, conjunctiva clear. ENT: Ears normal, nares patent, oropharynx clear without exudates, moist mucous membranes. NECK: Trachea midline, full range of motion, supple. LUNGS: Breath sounds equal, clear. HEART: Regular rate and rhythm, S1, S2 without murmur, rub or gallop. ABDOMEN: Soft, nontender, nondistended, +bowel sounds, colostomy with dark nonbloody stool, gas, surrounding area without erythema, no leakage. EXTREMITIES: 2+ pulses in UE, warm, well-perfused. b/l LE cool with atrophy, pt paraplegic. no skin breakdown. NEUROLOGICAL: Normal speech, PSYCH: Normal mood, normal affect. SKIN: Warm, dry, normal turgor, no rashes or lesions noted. left shoulder with small raised mass covered with gauze, nontender, no surrounding erythema, no discharge Condom gold in place - clear yellow urine Active Medications Generic Name Dose Route Start Last Admin Trade Name Arjun PRN Reason Stop Dose Admin Amino Acids 30 ml 08/31/16 17:30 09/03/16 09:37 Prostat Sugar-Free Packet - PO 30 ml BID@0800,1730 SREEKANTH Administration Ascorbic Acid 500 mg 08/25/16 22:00 09/03/16 09:39 Vitamin C - PO 500 mg BID SREEKANTH Administration Cyanocobalamin 1,000 mcg 08/26/16 10:00 09/03/16 09:40 Vitamin B12 - PO 1,000 mcg DAILY SREEKANTH Administration Docusate Sodium 100 mg 08/25/16 22:00 09/03/16 06:04 Colace - PO 100 mg TID SREEKANTH Administration Ferrous Sulfate 325 mg 08/26/16 10:00 09/03/16 09:40 Feosol - PO 325 mg DAILY SREEKANTH Administration Gabapentin 600 mg 08/25/16 22:00 09/02/16 21:15 Neurontin - PO 600 mg HS SREEKANTH Administration Heparin Sodium (Porcine) 5,000 unit 08/26/16 08:00 09/03/16 06:05 Heparin - SQ 5,000 unit TID SREEKANTH Administration Lactulose 10 gm 08/27/16 22:00 09/03/16 09:38 Cephulac (Oral Use) PO 10 gm BID SREEKANTH Administration Magnesium Hydroxide 30 ml 08/28/16 12:06 08/29/16 06:06 Milk Of Magnesia - PO 30 ml Q8H PRN Administration INDIGESTION Pantoprazole Sodium 40 mg 08/27/16 10:00 09/03/16 09:39 Protonix - PO 40 mg DAILY SREEKANTH Administration Polyethylene Glycol 17 gm 08/29/16 12:00 09/03/16 09:43 Miralax (For Daily Use) - PO 17 gm BID SREEKANTH Administration Pyridoxine HCl 50 mg 08/26/16 10:00 09/03/16 09:39 Vitamin B6 - PO 50 mg DAILY SREEKANTH Administration ASSESSMENT/PLAN: 66 yr old man with HTN, paraplegia, h/o of PUD with GI bleed admitted for skin graft of sacral decubitus ulcer. - JOSEFA sent for Rashadporter. #Skin graft POD#7 - wound care/dressing change as per Dr. Arenas - s/p ancef 1gm 08/25-08/28 - vitamin c 500mg qd #Constipation - lactulose 10gm po bid - colace 100mg po tid - miralax 17gm po bid (patient will take as needed) #anemia (normochrom/normocytic, chronic) - vitamin b12 po daily - vit b6 50mg po daily - feosol 325 po daily #hx of PUD - protonix 40mg po daily #DVT prophylaxis - Hep 5000 subq TID #pain - gabapentin 600mg po hs #Diet - high protein diet, prostat 30ml/bid Visit type - Emergency Visit Emergency Visit: No - New Patient This patient is new to me today: No - Critical Care Critical Care patient: No - Discharge Referral Referred to [facility] Med P.C.: No
[2016-09-03] MEDS: GABAPENTIN 300 MG CAPSULE (FP) PO SCH (22:14)
[2016-09-03] MEDS ORDERED: diphenhydrAMINE HCL 25 MG CAPSULE (FP) PO ONE (22:36)
[2016-09-04] MEDS: HEPARIN NA (PORCINE) 5,000 UNITS/ML 1ML VIAL SQ SCH ×2 (05:19→14:21)
[2016-09-04] MEDS: DOCUSATE SODIUM 100 MG CAPSULE (FP) PO SCH ×2 (05:19→14:24)
[2016-09-04] MEDS: PANTOPRAZOLE 40 MG TABLET (FP) PO SCH ×2 (06:50→09:26)
--- NOTE | 2016-09-04 06:55 | PN ---
Physical Exam: SUBJECTIVE: Patient seen and examined no complaints. feels well. eating/toileting/breathing well. denies chest pain, SOB, headache, diarrhea. OBJECTIVE: Vital Signs Period Temp Pulse Resp BP Sys/Garcia Pulse Ox Last 24 Hr 97.1 F-98.2 F 68-82 18-20 88-92/51-52 100-100 GENERAL: The patient is awake, alert, and fully oriented, in no acute distress. HEAD: Normal with no signs of trauma. EYES: extraocular movements intact, sclera anicteric, conjunctiva clear. ENT: Ears normal, nares patent, oropharynx clear without exudates, moist mucous membranes. NECK: Trachea midline, full range of motion, supple. LUNGS: Breath sounds equal, clear. HEART: Regular rate and rhythm, S1, S2 without murmur, rub or gallop. ABDOMEN: Soft, nontender, nondistended, +bowel sounds, colostomy with dark nonbloody stool, gas, surrounding area without erythema, no leakage. EXTREMITIES: 2+ pulses in UE, warm, well-perfused. b/l LE cool with atrophy, pt paraplegic. no skin breakdown. NEUROLOGICAL: Normal speech, PSYCH: Normal mood, normal affect. SKIN: Warm, dry, normal turgor, no rashes or lesions noted. left shoulder with small raised mass covered with gauze, nontender, no surrounding erythema, no discharge Condom gold in place - clear yellow urine Active Medications Generic Name Dose Route Start Last Admin Trade Name Freq PRN Reason Stop Dose Admin Amino Acids 30 ml 08/31/16 17:30 09/03/16 16:48 Prostat Sugar-Free Packet - PO 30 ml BID@0800,1730 SREEKANTH Administration Ascorbic Acid 500 mg 08/25/16 22:00 09/03/16 22:13 Vitamin C - PO 500 mg BID SREEKANTH Administration Cyanocobalamin 1,000 mcg 08/26/16 10:00 09/03/16 09:40 Vitamin B12 - PO 1,000 mcg DAILY SREEKANTH Administration Docusate Sodium 100 mg 08/25/16 22:00 09/04/16 05:19 Colace - PO 100 mg TID SREEKANTH Administration Ferrous Sulfate 325 mg 08/26/16 10:00 09/03/16 09:40 Feosol - PO 325 mg DAILY SREEKANTH Administration Gabapentin 600 mg 08/25/16 22:00 09/03/16 22:14 Neurontin - PO 600 mg HS SREEKANTH Administration Heparin Sodium (Porcine) 5,000 unit 08/26/16 08:00 09/04/16 05:19 Heparin - SQ 5,000 unit TID SREEKANTH Administration Lactulose 10 gm 08/27/16 22:00 09/03/16 22:13 Cephulac (Oral Use) PO 10 gm BID SREEKANTH Administration Magnesium Hydroxide 30 ml 08/28/16 12:06 08/29/16 06:06 Milk Of Magnesia - PO 30 ml Q8H PRN Administration INDIGESTION Pantoprazole Sodium 40 mg 09/04/16 06:30 09/04/16 06:50 Protonix - PO 40 mg DAILY SREEKANTH Administration Polyethylene Glycol 17 gm 08/29/16 12:00 09/03/16 22:14 Miralax (For Daily Use) - PO Not Given BID SREEKANTH Pyridoxine HCl 50 mg 08/26/16 10:00 09/03/16 09:39 Vitamin B6 - PO 50 mg DAILY SREEKANTH Administration ASSESSMENT/PLAN: 66 yr old man with HTN, paraplegia, h/o of PUD with GI bleed admitted for skin graft of sacral decubitus ulcer. - accepted to [facility]. for d/c today. #Skin graft - wound care/dressing change as per Dr. Arenas - s/p ancef 1gm 08/25-08/28 - vitamin c 500mg qd #Constipation - lactulose 10gm po bid - colace 100mg po tid - miralax 17gm po bid (patient will take as needed) #anemia (normochrom/normocytic, chronic) - vitamin b12 po daily - vit b6 50mg po daily - feosol 325 po daily #hx of PUD - protonix 40mg po daily prior to breakfast #DVT prophylaxis - Hep 5000 subq TID #pain - gabapentin 600mg po hs #Diet - high protein diet, prostat 30ml/bid Visit type - Emergency Visit Emergency Visit: No - New Patient This patient is new to me today: No - Critical Care Critical Care patient: No - Discharge Referral Referred to [facility] Med P.C.: No
[2016-09-04 08:25] LABS: BASOPHIL 0.2 % (0-2.0); EOSINOPHIL 1.4 % (0-4.5); MCHC 33.1 g/dl (32.0-35.9); MEAN CELL VOLUME 90.6 fl (80-96); MEAN PLT VOLUME 7.7 fl (7.5-11.1); NEUTROPHILS 65.9 % (42.8-82.8); PLATELET COUNT 288 K/MM3 (134-434); RDW 15.1 % (11.9-15.9); WHITE BLOOD COUNT 5.8 K/mm3 (4.0-10.0)
[2016-09-04 09:20] LABS: ALBUMIN 2.9 g/dl (3.4-5.0); ALK PHOS 113 U/L (45-117); ANION GAP 9 (8-16); BILIRUBIN,TOTAL 0.2 mg/dL (0.2-1.0); CALCIUM 9.4 mg/dL (8.5-10.1); CO2 27 mmol/L (21-32); CREATININE 0.5 mg/dL (0.7-1.3); GLUCOSE,RANDOM 97 mg/dL (74-106); SGOT/AST 15 U/L (15-37); SGPT/ALT 16 U/L (12-78); TOT PROT 6.8 g/dl (6.4-8.2)
[2016-09-04] MEDS: ASCORBIC ACID 500 MG TABLET (FP) PO SCH (09:26)
[2016-09-04] MEDS: AMINO ACIDS/PROTEIN HYDROLYS SUGAR-FREE 30 ML PACKET PO SCH (09:26)
[2016-09-04] MEDS: LACTULOSE 20 GM/30 ML UDC (FOR ORAL USE ONLY) PO SCH (09:26)
[2016-09-04] MEDS: CYANOCOBALAMIN 1,000 MCG TABLET (FP) PO SCH (09:26)
[2016-09-04] MEDS: PYRIDOXINE HCL (B-6) 50 MG TABLET (FP) PO SCH (09:26)
[2016-09-04] MEDS: FERROUS SO4 325 MG TABLET (FP) PO SCH (09:26)
[2016-09-04] MEDS: POLYETHYLENE GLYCOL 3350 119 GM BTL PO SCH (09:27)
[2016-09-04 13:31] VITALS: BP 83/45
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
[2016-09-04 14:44] VITALS: PULSE 69; TEMP 98
[2016-09-05] MEDS ORDERED: PANTOPRAZOLE 40 MG TABLET (FP) PO SCH (06:30)
== END 2016-09-04 16:42 | DRG 573 ==
LOC: JASUSAT 10:45 → EDSTATUS 13:00 → JSAMEDAYSX 18:22 → J6S 19:35
PROVIDERS: ADMIT Plastic Surgery; ATTEND Internal Medicine
PROC: 0HR8X74 Replacement of Buttock Skin with Autologous Tissue Substitute, Partial Thickness, External Approach (ICD-10-PCS; 2016-08-25)
PROC: 0HX8XZZ Transfer Buttock Skin, External Approach (ICD-10-PCS; 2016-08-25)
PROC: 0JB70ZZ Excision of Back Subcutaneous Tissue and Fascia, Open Approach (ICD-10-PCS; principal; 2016-08-25 13:00)
DX: L89.154 Pressure ulcer of sacral region, stage 4 (principal); G82.20 Paraplegia, unspecified; K27.9 Peptic ulcer, site unspecified, unspecified as acute or chronic, without hemorrhage or perforation; I10 Essential (primary) hypertension; D64.9 Anemia, unspecified; K59.09 Other constipation; I95.89 Other hypotension
CPT/HCPCS: 36415; 80048; 80053; 85025; 86850; 86870; 86900; 86901; 86902; 88304-TC; 94010; 94760; E0194; J0475; J1644

== ENCOUNTER 2018-09-28 11:25 | Day surgery (SDC) | payer OTHER, BC ==
[2018-09-27 11:01] VITALS: BMI 25.1
[2018-09-28] MEDS ORDERED: ROCURONIUM BROMIDE 50 MG/5 ML VIAL ONE (13:15)
[2018-09-28] MEDS ORDERED: MIDAZOLAM HCL 2 MG/2 ML SINGLE DOSE VIAL ONE ×2 (13:15→13:43)
[2018-09-28] MEDS ORDERED: PROPOFOL 20 ML ONE ×3 (13:15→14:54)
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
[2018-09-28] MEDS ORDERED: LIDOCAINE 1%-EPI 1:100,000 30 ML MDV IJ ONE (13:40)
[2018-09-28] MEDS ORDERED: BUPIVACAINE HCL/PF 0.25% (2.5MG/ML) 10 ML VIAL ONE (13:41)
[2018-09-28] MEDS ORDERED: BUPIVACAINE HCL/PF 0.25% (2.5MG/ML) 10 ML VIAL IJ ONE (13:56)
[2018-09-28] MEDS ORDERED: LIDOCAINE 1%/EPI 1:100000 (20 ML MULTI DOSE VIAL) IJ ONE (13:56)
[2018-09-28] MEDS ORDERED: oxyCODONE HCL 5 MG TABLET PO PRN ×2 (14:43)
[2018-09-28] MEDS ORDERED: ONDANSETRON 4 MG/2 ML VIAL IVPUSH PRN (14:43)
[2018-09-28] MEDS ORDERED: LACTATED RINGERS SOLUTION 1,000 ML IV SCH (14:45)
[2018-09-28] MEDS ORDERED: KETAMINE HCL 200 MG/20 ML VIAL ONE (14:46)
[2018-09-28] MEDS ORDERED: BACITRACIN 15 GM TUBE TOPICAL OINTMENT ONE (15:09)
[2018-09-28] MEDS ORDERED: ACETAMINOPHEN 325 MG TABLET (FP) PO PRN (15:35)
[2018-09-28] MEDS ORDERED: MAGNESIUM HYDROX 2400MG/30ML ORAL SUSPENSION 30 ML CUP PO ONE (15:40)
[2018-09-28] MEDS ORDERED: MAGNESIUM HYDROX 2400MG/30ML ORAL SUSPENSION 30 ML CUP PO PRN (15:49)
[2018-09-28] MEDS ORDERED: GABAPENTIN 300 MG CAPSULE (FP) PO ONE (20:00)
[2018-09-28] MEDS ORDERED: BACLOFEN 10 MG TABLET (FP) PO ONE (20:39)
[2018-09-28] MEDS ORDERED: PATIENT'S OWN MEDICATION (NON-FORMULARY) (Gabapentin [Neurontin] 600 MG) PO SCH (22:00)
[2018-09-28] MEDS ORDERED: GABAPENTIN 300 MG CAPSULE (FP) PO SCH (22:00)
[2018-09-28] MEDS: LACTULOSE 20 GM/30 ML UDC (FOR ORAL USE ONLY) PO SCH (22:02)
--- NOTE | 2018-09-29 09:12 | OP ---
DATE OF OPERATION: 09/28/2018 PREOPERATIVE DIAGNOSIS: Basal squamous cell carcinoma, upper back. POSTOPERATIVE DIAGNOSIS: Basal squamous cell carcinoma, upper back. PROCEDURE: 1. Wide excision squamous cell carcinoma. 2. Reconstruction with a local rotation flap. SURGEON: Danilo Kelly MD ANESTHESIA: Local with IV sedation. HISTORY: Patient is a 68-year-old male recently diagnosed with a squamous cell carcinoma with biopsy. Patient for further excision and reconstruction. DESCRIPTION OF PROCEDURE: Patient was brought to the operating room, transferred over to the operating table, kept in a right lateral position. Standard time-out procedure carried out. Patient was identified including the site. Markings were carried out around the tumor staying 1 cm from the visible margin. A large [place] was drawn. Flap was then drawn on the cephalic portion of upper back. Skin was prepped and draped in a standard aseptic manner. Subcutaneous anesthesia of 1% lidocaine with epinephrine with 0.25% Marcaine was given, a total of 30 mL was injected in the subcutaneous tissue. Draping done in a standard manner. Thin scalpel blade was used. The entire tumor was excised in in a circular manner, sent for pathology with markers. Two long sutures at 12 o'clock, two short sutures at 6 o'clock, one long and one short at 9 o'clock position. Using scalpel blade, flap was then elevated over the fascia. Hemostasis was secured with electrocautery. Flap was mobilized and inset using 4-0 Vicryl interrupted sutures followed by mariel. A SHANTI drain was applied at the base of the flap. It was brought out at the 6 o'clock position through a separate incision made with a 15 blade. Final closure was mariel. Steri-Strips, Xeroform were applied followed by fluffs using Kerlix. Total estimated blood loss is less than 50 mL. Patient was given 2 g of Ancef prior to starting the procedure. He will be observed for 23 hours for bleeding. He was sent to recovery room in a stable condition. DANILO KELLY M.D. [id number]
[2018-09-29] MEDS ORDERED: PATIENT'S OWN MEDICATION (NON-FORMULARY) (Omeprazole [Prilosec] 40 MG) PO SCH (10:00)
[2018-09-29] MEDS ORDERED: ASCORBIC ACID 500 MG TABLET (FP) PO SCH (10:00)
[2018-09-29] MEDS ORDERED: PATIENT'S OWN MEDICATION (NON-FORMULARY) (Ascorbate Calcium [Vitamin C] 500 MG) PO SCH (10:00)
[2018-09-29] MEDS ORDERED: VITAMIN E 400 INTERNATIONAL-UNITS CAPSULE (FP) PO SCH (10:00)
[2018-09-29] MEDS ORDERED: PANTOPRAZOLE 40 MG TABLET (FP) PO SCH (10:00)
[2018-09-29] MEDS ORDERED: PYRIDOXINE HCL (B-6) 50 MG TABLET (FP) PO SCH (10:00)
[2018-09-29] MEDS ORDERED: PT OWN MED DRAWER 7, Y5N ONE (10:07)
[2018-09-29] MEDS: LACTULOSE 20 GM/30 ML UDC (FOR ORAL USE ONLY) PO SCH (10:15)
--- NOTE | 2018-09-29 11:58 | PN ---
Progress Note (short form) - Note Progress Note: Post Op day 1 Afebrile, stable Dressing changed, flap stable, circulation is intact, suture line intact, no hematoma SHANTI was 65 cc post surgery drainage, non now SHANTI removed, Bulky dressing applied Plan : Discharge to home FU in wound clinic All questions answered
[2018-09-29 14:58] VITALS: BP 93/54; PULSE 54; TEMP 98.3
--- NOTE | 2018-10-04 09:19 | PATH ---
Surgical Pathology Report Patient Name: ADELA [facility]. Rec. #: [id number] /Age/Gender: 1950 (Age: 68) / M Account: [id number] Location: AMBULATORY SURG Taken: 09/28/2018 Received: 09/29/2018 Reported: 10/04/2018 Physicians: Shayla Arenas M.D. Specimen(s) Received SKIN EXCISION Clinical History Squamous cell carcinoma upper back Final Diagnosis UPPER BACK, EXCISION: BASAL CELL CARCINOMA, NODULAR TYPE. TUMOR MEASURES 2.6 x 2.3 CM. SURGICAL MARGINS ARE NEGATIVE. SEE COMMENT. Comment: Histologic sections show basaloid cells with scant cytoplasm, elongated hyperchromatic nuclei, peripheral palisading, and peritumoral clefting. Focal squamoid areas/squamous differentiation are noted. Mitosis and apoptosis are readily evident. Immunohistochemical stains performed at [place], [place] ([id number])and interpreted at [facility] show the tumor is positive for Junior-Ep4, BCL-2 and focally for SMA; while negative for CABRERA. This immunophenotype is best in keeping with a basal cell carcinoma. Prior material is noted. Electronically Signed Jennifer Cross M.D. Addendum Reported: 10/04/2018 Addendum Diagnosis Findings discussed with Dr. Arenas. Jennifer Cross M.D. Gross Description Received in formalin labeled "squamous cell carcinoma, upper back" is a 4.0 x 3.8 cm masterson, ovoid portion of skin excised to depth of 0.5 cm. There are 2 long sutures marking the 12:00 aspect, 2 short sutures marking the 6:00 aspect and 1 long and 1 short suture marking the 3:00 aspect of the specimen, per the surgeon. The epidermal surface displays a 2.6 x 2.3 cm masterson, raised nodule. The nodule is 0.5 cm from the closest (10-11:00) radial margin. The specimen is inked as follows: 12:00 to 3:00 red; 3:00 to 6:00 green; 6:00 to 9:00 yellow; 9:00 to 12:00 blue, deep black. Rubber Stamp Die Inspector sections are submitted in 6 cassettes as follows: 1-full face section of mass with deep margin; 2-mass to 12:00; 3-mass to 3:00; 4-mass to 6:00; 5-mass to 9:00; 6-mass to 10-11:00 (closest radial margin). [id number]/29/[id number]
== END 2018-09-29 15:46 | disposition home health service (06) ==
LOC: JASUSAT 11:25 → JASU-SURG 11:25 → J6S 20:35 → JASUSAT 09-29 15:46
PROVIDERS: ATTEND Plastic Surgery
PROC: 0HB6XZZ Excision of Back Skin, External Approach (ICD-10-PCS; 2018-09-28)
PROC: 0HX6XZZ Transfer Back Skin, External Approach (ICD-10-PCS; principal; 2018-09-28 13:00)
DX: C44.529 Squamous cell carcinoma of skin of other part of trunk (principal); G82.20 Paraplegia, unspecified
CPT/HCPCS: 88307-TC; 94760; E0186; J0475

== ENCOUNTER 2020-04-10 04:54 | Inpatient (IN) | payer OTHER, BC ==
[2020-04-09 14:40] VITALS: BMI 25.1
[2020-04-10] MEDS ORDERED: GLYCOPYRROLATE 0.2 MG/1 ML VIAL ONE (13:18)
[2020-04-10] MEDS ORDERED: LIDOCAINE HCL 2% JELLY (5 ML/TUBE) ONE (13:18)
[2020-04-10] MEDS ORDERED: MIDAZOLAM HCL 2 MG/2 ML SINGLE DOSE VIAL ONE ×2 (13:18→14:09)
[2020-04-10] MEDS ORDERED: PROPOFOL 20 ML ONE ×2 (13:18)
[2020-04-10] MEDS ORDERED: ONDANSETRON 4 MG/2 ML VIAL ONE (13:18)
[2020-04-10] MEDS ORDERED: ROCURONIUM BROMIDE 50 MG/5 ML SYRINGE ONE (13:18)
[2020-04-10] MEDS ORDERED: DEXAMETHASONE SOD PHOSPHATE 4 MG/1 ML VIAL ONE (13:18)
[2020-04-10] MEDS ORDERED: LIDOCAINE HCL/PF 2% SDV 5ML VIAL ONE (13:18)
[2020-04-10] MEDS ORDERED: ceFAZolin SODIUM 1 GM VIAL ONE (13:18)
[2020-04-10] MEDS ORDERED: MINERAL OIL 25 ML OIL ONE (13:32)
[2020-04-10] MEDS ORDERED: ceFAZolin 2 GRAM PREMIX BAG IVPB ONE (14:00)
[2020-04-10] MEDS ORDERED: BACITRACIN 50,000 UNITS VIAL NR ONE (14:22)
[2020-04-10] MEDS ORDERED: MINERAL OIL 25 ML OIL TP ONE (14:50)
[2020-04-10] MEDS ORDERED: ONDANSETRON 4 MG/2 ML VIAL IVPUSH PRN ×2 (15:35→15:39)
[2020-04-10] MEDS ORDERED: oxyCODONE HCL 5 MG TABLET PO PRN ×2 (15:35)
[2020-04-10] MEDS ORDERED: LORazepam 0.5 MG TABLET PO PRN (15:44)
[2020-04-10] MEDS ORDERED: LACTATED RINGERS SOLUTION 1,000 ML IV SCH (15:45)
[2020-04-10] MEDS ORDERED: MORPHINE SULFATE 2 MG/ML VIAL IVPUSH PRN (15:45)
--- NOTE | 2020-04-10 16:02 | OP ---
Operative Note - Note: Operative Date: 04/10/20 Pre-Operative Diagnosis: Pressure ulcer left lower extremity Operation: Left leg wound debridement and split thickness skin graft placement with wound vac Post-Operative Diagnosis: Same as Pre-op Surgeon: Shayla Arenas Hi Low Truck Driver: Ed Alonso Anesthesiologist/JANITOR CARETAKER: Dary Yancey Anesthesia: MAC Estimated Blood Loss (mls): 20 Operative Report Dictated: Yes
--- NOTE | 2020-04-10 16:06 | SURG ---
Surgery Bookmobile Clerk Note Bookmobile Clerk: Ed Alonso PA-C Date of Service: 04/10/20 Diagnosis: Pressure ulcer left lower extremity Procedure: Left leg wound debridement and split thickness skin graft placement with wound vac I was present for the entirety of the operative procedure. For further detail, please refer to operative report. Visit type - Case Type Case Type: Scheduled - Emergency Emergency Visit: No - New patient This patient is new to me today: Yes Date on this admission: 04/10/20 - Critical Care Critical Care patient: No
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
[2020-04-10] MEDS ORDERED: ceFAZolin 2 GRAM PREMIX BAG IVPB SCH (18:00)
[2020-04-10] MEDS: ceFAZolin 2 GRAM PREMIX BAG IVPB SCH (21:57)
[2020-04-10] MEDS: BACLOFEN 10 MG TABLET (FP) PO SCH (21:57)
[2020-04-10] MEDS: LACTULOSE 20 GM/30 ML UDC (FOR ORAL USE ONLY) PO SCH ×2 (21:58→22:07)
[2020-04-10] MEDS: GABAPENTIN 300 MG CAPSULE PO SCH (21:58)
[2020-04-11] MEDS: ceFAZolin 2 GRAM PREMIX BAG IVPB SCH ×2 (04:23→12:14)
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
[2020-04-11 08:56] LABS: BASO % 0.6 % (0-2.0); EOS % 1.2 % (0-4.5); HEMATOCRIT 33.8 % (35.4-49); LYMPH % 17.2 % (8-40); MCHC 32.6 g/dl (32.0-35.9); MEAN PLT VOLUME 8.5 fl (7.5-11.1); MONO % 6.8 % (3.8-10.2); NEUT % 74.2 % (42.8-82.8); PLATELET COUNT 290 K/MM3 (134-434); RBC 3.67 M/mm3 (4.00-5.60); RDW 13.9 % (11.9-15.9); WHITE BLOOD COUNT 6.1 K/mm3 (4.0-10.0)
[2020-04-11 09:26] LABS: ALBUMIN 2.8 g/dl (3.4-5.0); BILIRUBIN,TOTAL 0.6 mg/dL (0.2-1); BLOOD UREA NITROGEN 16.3 mg/dL (7-18); CALCIUM 9.1 mg/dL (8.5-10.1); CREATININE 0.5 mg/dL (0.55-1.3); POTASSIUM 4.1 mmol/L (3.5-5.1); TOT PROT 7.1 g/dl (6.4-8.2)
[2020-04-11] MEDS ORDERED: PATIENT'S OWN MEDICATION (NON-FORMULARY) (Vitamin E [Vitamin E] 1,000 UNIT) PO SCH (10:00)
[2020-04-11] MEDS: ZINC SULFATE 220 MG CAPSULE (FP) PO SCH (10:09)
[2020-04-11] MEDS: ASCORBIC ACID 500 MG TABLET (FP) PO SCH (10:09)
[2020-04-11] MEDS: FOLIC ACID 1 MG TABLET (FP) PO SCH (10:09)
[2020-04-11] MEDS: CYANOCOBALAMIN 1,000 MCG TABLET (FP) PO SCH (10:09)
[2020-04-11] MEDS: MULTIVITAMINS THER W-MINERALS COMBO TABLET (FP) PO SCH (10:09)
[2020-04-11] MEDS: PYRIDOXINE HCL (B-6) 50 MG TABLET (FP) PO SCH (10:09)
[2020-04-11] MEDS: ENOXAPARIN NA (PORCINE) 40 MG/0.4 ML DISP.SYRIN SQ SCH (10:10)
[2020-04-11] MEDS: LACTULOSE 20 GM/30 ML UDC (FOR ORAL USE ONLY) PO SCH ×2 (10:10→21:41)
[2020-04-11] MEDS: CHOLECALCIFEROL (VIT D3) 400 UNIT (10 MCG) TABLET PO SCH (10:10)
[2020-04-11] MEDS: PANTOPRAZOLE 40 MG TABLET PO SCH (10:10)
[2020-04-11] MEDS: FERROUS SO4 325 MG TABLET (FP) PO SCH (11:33)
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
[2020-04-11] MEDS ORDERED: PIPERACILLIN/TAZOB 3.375 GM 3.375 GM in DEXTROSE 5%-WATER - 50 ML IVPB SCH (13:30)
[2020-04-11] MEDS ORDERED: PT OWN MED DRAWER 7, Y5N ONE (14:49)
--- NOTE | 2020-04-11 17:31 | PN ---
Progress Note, Physician History of Present Illness: stable - Current Medication List Current Medications: Active Medications Ascorbic Acid (Vitamin C -) 500 mg PO DAILY [facility] Last Admin: 04/11/20 10:09 Dose: 500 mg Documented by: Baclofen (Lioresal -) 20 mg PO HS [facility] Last Admin: 04/10/20 21:57 Dose: 20 mg Documented by: Cholecalciferol (Vitamin D3 -) 400 unit PO DAILY [facility] Last Admin: 04/11/20 10:10 Dose: 400 unit Documented by: Cyanocobalamin (Vitamin B12 -) 1,000 mcg PO DAILY [facility] Last Admin: 04/11/20 10:09 Dose: 1,000 mcg Documented by: Enoxaparin Sodium (Lovenox -) 40 mg SQ DAILY [facility] Last Admin: 04/11/20 10:10 Dose: 40 mg Documented by: Ferrous Sulfate (Feosol -) 325 mg PO DAILY [facility] Last Admin: 04/11/20 11:33 Dose: 325 mg Documented by: Folic Acid (Folic Acid -) 1 mg PO DAILY [facility] Last Admin: 04/11/20 10:09 Dose: 1 mg Documented by: Gabapentin (Neurontin -) 600 mg PO HS [facility] Last Admin: 04/10/20 21:58 Dose: 600 mg Documented by: Piperacillin Sod/Tazobactam (Sod 3.375 gm/ Dextrose) 50 mls @ 100 mls/hr IVPB Q8H-IV [facility]; Protocol Lactulose (Cephulac (Oral Use)) 10 gm PO BID [facility] Last Admin: 04/11/20 10:10 Dose: 10 gm Documented by: Lorazepam (Ativan -) 0.5 mg PO HS PRN PRN Reason: INSOMNIA Morphine Sulfate (Morphine Sulfate) 2 mg IVPUSH Q6H PRN PRN Reason: PAIN LEVEL 7 - 10 Multivitamins/Minerals (Theragran-M) 1 each PO DAILY [facility] Last Admin: 04/11/20 10:09 Dose: 1 each Documented by: Ondansetron HCl (Zofran Injection) 4 mg IVPUSH Q6H PRN PRN Reason: NAUSEA AND/OR VOMITING Ondansetron HCl (Zofran Injection) 4 mg IVPUSH Q6H PRN PRN Reason: NAUSEA AND/OR VOMITING Oxycodone HCl (Roxicodone -) 5 mg PO Q4H PRN PRN Reason: PAIN LEVEL 1-5 Oxycodone HCl (Roxicodone -) 10 mg PO Q4H PRN PRN Reason: PAIN LEVEL 6-10 Pantoprazole Sodium (Protonix -) 40 mg PO DAILY [facility] Last Admin: 04/11/20 10:10 Dose: 40 mg Documented by: Pyridoxine HCl (Vitamin B6 -) 50 mg PO DAILY [facility] Last Admin: 04/11/20 10:09 Dose: 50 mg Documented by: Zinc Sulfate (Orazinc -) 220 mg PO DAILY [facility] Last Admin: 04/11/20 10:09 Dose: 220 mg Documented by: - Objective Vital Signs: Vital Signs Temperature 98.5 F 04/11/20 15:18 Pulse Rate 96 H 04/11/20 15:18 Respiratory Rate 18 04/11/20 15:18 Blood Pressure 87/55 L 04/11/20 15:18 O2 Sat by Pulse Oximetry (%) 99 04/11/20 15:18 Constitutional: Yes: No Distress HENT: Yes: Atraumatic Neck: Yes: Supple Cardiovascular: Yes: Regular Rate and Rhythm Respiratory: Yes: CTA Bilaterally Gastrointestinal: Yes: Normal Bowel Sounds Extremities: Yes: Other (llex in dressing) Neurological: Yes: Alert, Oriented Labs: CBC, BMP 04/11/20 08:10 04/11/20 08:10 Problem List - Problems (1) Encounter for debridement of skin Assessment/Plan: s/p debridement wound care iv abx Code(s): [id number] - (2) Paraplegia, complete Code(s): G82.21 - PARAPLEGIA, COMPLETE (3) Pressure injury of left leg, stage 3 Assessment/Plan: requires frequent turnings Code(s): L89.893 - PRESSURE ULCER OF OTHER SITE, STAGE 3
[2020-04-11] MEDS: PIPERACILLIN/TAZOB 3.375 GM 3.375 GM in DEXTROSE 5%-WATER - 50 ML IVPB SCH (17:33)
[2020-04-11] MEDS: GABAPENTIN 300 MG CAPSULE PO SCH (21:40)
[2020-04-11] MEDS: BACLOFEN 10 MG TABLET (FP) PO SCH (21:41)
[2020-04-12] MEDS ORDERED: DEXTROSE 5%-WATER - 50 ML IVPB ONE ×3 (02:00→17:49)
[2020-04-12] MEDS ORDERED: PIPERACILLIN/TAZOBACTAM 3.375 GM VIAL IVPB ONE ×3 (02:00→17:49)
[2020-04-12] MEDS: PIPERACILLIN/TAZOB 3.375 GM 3.375 GM in DEXTROSE 5%-WATER - 50 ML IVPB SCH ×3 (02:49→17:52)
[2020-04-12] MEDS ORDERED: PT OWN MED DRAWER 7, Y5N ONE ×2 (05:55→09:11)
[2020-04-12] MEDS: ENOXAPARIN NA (PORCINE) 40 MG/0.4 ML DISP.SYRIN SQ SCH (09:08)
[2020-04-12] MEDS: FERROUS SO4 325 MG TABLET (FP) PO SCH (09:08)
[2020-04-12] MEDS: MULTIVITAMINS THER W-MINERALS COMBO TABLET (FP) PO SCH (09:08)
[2020-04-12] MEDS: LACTULOSE 20 GM/30 ML UDC (FOR ORAL USE ONLY) PO SCH ×2 (09:08→21:01)
[2020-04-12] MEDS: ASCORBIC ACID 500 MG TABLET (FP) PO SCH (09:08)
[2020-04-12] MEDS: FOLIC ACID 1 MG TABLET (FP) PO SCH (09:08)
[2020-04-12] MEDS: ZINC SULFATE 220 MG CAPSULE (FP) PO SCH (09:08)
[2020-04-12] MEDS: PANTOPRAZOLE 40 MG TABLET PO SCH (09:08)
[2020-04-12] MEDS: CHOLECALCIFEROL (VIT D3) 400 UNIT (10 MCG) TABLET PO SCH (09:09)
[2020-04-12] MEDS: CYANOCOBALAMIN 1,000 MCG TABLET (FP) PO SCH (09:12)
[2020-04-12] MEDS: PYRIDOXINE HCL (B-6) 50 MG TABLET (FP) PO SCH (09:12)
--- NOTE | 2020-04-12 09:32 | PN ---
Progress Note, Physician History of Present Illness: stable no new issues - Current Medication List Current Medications: Active Medications Ascorbic Acid (Vitamin C -) 500 mg PO DAILY [facility] Last Admin: 04/12/20 09:08 Dose: 500 mg Documented by: Baclofen (Lioresal -) 20 mg PO HS [facility] Last Admin: 04/11/20 21:41 Dose: 20 mg Documented by: Cholecalciferol (Vitamin D3 -) 400 unit PO DAILY [facility] Last Admin: 04/12/20 09:09 Dose: 400 unit Documented by: Cyanocobalamin (Vitamin B12 -) 1,000 mcg PO DAILY [facility] Last Admin: 04/12/20 09:12 Dose: 1,000 mcg Documented by: Enoxaparin Sodium (Lovenox -) 40 mg SQ DAILY [facility] Last Admin: 04/12/20 09:08 Dose: 40 mg Documented by: Ferrous Sulfate (Feosol -) 325 mg PO DAILY [facility] Last Admin: 04/12/20 09:08 Dose: 325 mg Documented by: Folic Acid (Folic Acid -) 1 mg PO DAILY [facility] Last Admin: 04/12/20 09:08 Dose: 1 mg Documented by: Gabapentin (Neurontin -) 600 mg PO HS [facility] Last Admin: 04/11/20 21:40 Dose: 600 mg Documented by: Piperacillin Sod/Tazobactam (Sod 3.375 gm/ Dextrose) 50 mls @ 100 mls/hr IVPB Q8H-IV [facility]; Protocol Last Admin: 04/12/20 09:08 Dose: 100 mls/hr Documented by: Lactulose (Cephulac (Oral Use)) 10 gm PO BID [facility] Last Admin: 04/12/20 09:08 Dose: 10 gm Documented by: Lorazepam (Ativan -) 0.5 mg PO HS PRN PRN Reason: INSOMNIA Morphine Sulfate (Morphine Sulfate) 2 mg IVPUSH Q6H PRN PRN Reason: PAIN LEVEL 7 - 10 Multivitamins/Minerals (Theragran-M) 1 each PO DAILY [facility] Last Admin: 04/12/20 09:08 Dose: 1 each Documented by: Ondansetron HCl (Zofran Injection) 4 mg IVPUSH Q6H PRN PRN Reason: NAUSEA AND/OR VOMITING Ondansetron HCl (Zofran Injection) 4 mg IVPUSH Q6H PRN PRN Reason: NAUSEA AND/OR VOMITING Oxycodone HCl (Roxicodone -) 5 mg PO Q4H PRN PRN Reason: PAIN LEVEL 1-5 Oxycodone HCl (Roxicodone -) 10 mg PO Q4H PRN PRN Reason: PAIN LEVEL 6-10 Pantoprazole Sodium (Protonix -) 40 mg PO DAILY [facility] Last Admin: 04/12/20 09:08 Dose: 40 mg Documented by: Pyridoxine HCl (Vitamin B6 -) 50 mg PO DAILY [facility] Last Admin: 04/12/20 09:12 Dose: 50 mg Documented by: Zinc Sulfate (Orazinc -) 220 mg PO DAILY [facility] Last Admin: 04/12/20 09:08 Dose: 220 mg Documented by: - Objective Vital Signs: Vital Signs Temperature 98.5 F 04/12/20 06:00 Pulse Rate 76 04/12/20 06:00 Respiratory Rate 20 04/12/20 06:00 Blood Pressure 119/64 04/12/20 06:00 O2 Sat by Pulse Oximetry (%) 98 04/12/20 06:00 Constitutional: Yes: No Distress, Calm Cardiovascular: Yes: S1, S2 Respiratory: Yes: Regular, CTA Bilaterally Gastrointestinal: Yes: Normal Bowel Sounds, Soft Musculoskeletal: Yes: WNL Extremities: Yes: Other Neurological: Yes: Alert, Oriented Psychiatric: Yes: Alert, Oriented Labs: CBC, BMP 04/11/20 08:10 04/11/20 08:10 Assessment/Plan Problem List - Problems (1) Encounter for debridement of skin Code(s): [id number] - (2) Paraplegia, complete Code(s): G82.21 - PARAPLEGIA, COMPLETE (3) Pressure injury of left leg, stage 3 Assessment/Plan: requires frequent turnings Code(s): L89.893 - PRESSURE ULCER OF OTHER SITE, STAGE 3 sacral ulcers Assessment/Plan continue abx will d/w the team
--- NOTE | 2020-04-12 12:34 | PN ---
Progress Note, Physician - Current Medication List Current Medications: Active Medications Amino Acids (Prosource No Carb Liquid Pkt) 30 ml PO BID@0800,1730 [facility] Ascorbic Acid (Vitamin C -) 500 mg PO DAILY [facility] Last Admin: 04/12/20 09:08 Dose: 500 mg Documented by: Baclofen (Lioresal -) 20 mg PO HS [facility] Last Admin: 04/11/20 21:41 Dose: 20 mg Documented by: Cholecalciferol (Vitamin D3 -) 400 unit PO DAILY [facility] Last Admin: 04/12/20 09:09 Dose: 400 unit Documented by: Cyanocobalamin (Vitamin B12 -) 1,000 mcg PO DAILY [facility] Last Admin: 04/12/20 09:12 Dose: 1,000 mcg Documented by: Enoxaparin Sodium (Lovenox -) 40 mg SQ DAILY [facility] Last Admin: 04/12/20 09:08 Dose: 40 mg Documented by: Ferrous Sulfate (Feosol -) 325 mg PO DAILY [facility] Last Admin: 04/12/20 09:08 Dose: 325 mg Documented by: Folic Acid (Folic Acid -) 1 mg PO DAILY [facility] Last Admin: 04/12/20 09:08 Dose: 1 mg Documented by: Gabapentin (Neurontin -) 600 mg PO HS [facility] Last Admin: 04/11/20 21:40 Dose: 600 mg Documented by: Piperacillin Sod/Tazobactam (Sod 3.375 gm/ Dextrose) 50 mls @ 100 mls/hr IVPB Q8H-IV [facility]; Protocol Last Admin: 04/12/20 09:08 Dose: 100 mls/hr Documented by: Lactulose (Cephulac (Oral Use)) 10 gm PO BID [facility] Last Admin: 04/12/20 09:08 Dose: 10 gm Documented by: Lorazepam (Ativan -) 0.5 mg PO HS PRN PRN Reason: INSOMNIA Morphine Sulfate (Morphine Sulfate) 2 mg IVPUSH Q6H PRN PRN Reason: PAIN LEVEL 7 - 10 Multivitamins/Minerals (Theragran-M) 1 each PO DAILY [facility] Last Admin: 04/12/20 09:08 Dose: 1 each Documented by: Ondansetron HCl (Zofran Injection) 4 mg IVPUSH Q6H PRN PRN Reason: NAUSEA AND/OR VOMITING Ondansetron HCl (Zofran Injection) 4 mg IVPUSH Q6H PRN PRN Reason: NAUSEA AND/OR VOMITING Oxycodone HCl (Roxicodone -) 5 mg PO Q4H PRN PRN Reason: PAIN LEVEL 1-5 Oxycodone HCl (Roxicodone -) 10 mg PO Q4H PRN PRN Reason: PAIN LEVEL 6-10 Pantoprazole Sodium (Protonix -) 40 mg PO DAILY [facility] Last Admin: 04/12/20 09:08 Dose: 40 mg Documented by: Pyridoxine HCl (Vitamin B6 -) 50 mg PO DAILY [facility] Last Admin: 04/12/20 09:12 Dose: 50 mg Documented by: Zinc Sulfate (Orazinc -) 220 mg PO DAILY [facility] Last Admin: 04/12/20 09:08 Dose: 220 mg Documented by: - Objective Vital Signs: Vital Signs Temperature 98.4 F 04/12/20 09:05 Pulse Rate 67 04/12/20 09:05 Respiratory Rate 18 04/12/20 09:05 Blood Pressure 92/52 L 04/12/20 09:05 O2 Sat by Pulse Oximetry (%) 98 04/12/20 10:00 Constitutional: Yes: No Distress HENT: Yes: Atraumatic Neck: Yes: Supple Cardiovascular: Yes: Regular Rate and Rhythm Respiratory: Yes: CTA Bilaterally Gastrointestinal: Yes: Normal Bowel Sounds Extremities: Yes: Other (lle flap/cellulitis) Neurological: Yes: Alert, Oriented Labs: CBC, BMP 04/11/20 08:10 04/11/20 08:10 Problem List - Problems (1) Encounter for debridement of skin Assessment/Plan: s/p debridement wound care iv abx Code(s): [id number] - (2) Paraplegia, complete Code(s): G82.21 - PARAPLEGIA, COMPLETE (3) Pressure injury of left leg, stage 3 Assessment/Plan: requires frequent turnings Code(s): L89.893 - PRESSURE ULCER OF OTHER SITE, STAGE 3
--- NOTE | 2020-04-12 13:00 | PROC ---
VAC Application - Indications Surgical A decision was made to utilize Negative Pressure Therapy (VAC or Veraflo) to assist in: expedite wound closure through promotion of granulation tissue formation. - Wound description Wound location: Other Length (cm): 9 Width (cm): 3 Depth (cm): 2.75 Wound area (sq cm): 27.00 Wound Description: Tendon exposed: No, Bone exposed: No, Undermining: No - Device VAC Selection: NPT - Procedure Area cleansed. Prepped/draped. STSG cover with Xeroform dressing. Black foam tailored to fit just inside of wound borders to encourage wound contracture. An occlusive dressing applied. Suction disc placed in location so as not to be uncomfortable for the patient or cause any pressure point. Good seal as verified by complete foam collapse and no leak on unit monitor. Pressure set to 125 mmHg, continuous. Dressing changes: -- - CPT Code CPT code: 47348-dsec <50 sq cm
[2020-04-12] MEDS: AMINO ACIDS/PROTEIN HYDROLYS 30 ML LIQUID.PKT PO SCH (17:51)
[2020-04-12] MEDS: BACLOFEN 10 MG TABLET (FP) PO SCH (21:01)
[2020-04-12] MEDS: GABAPENTIN 300 MG CAPSULE PO SCH (21:01)
[2020-04-13] MEDS ORDERED: PIPERACILLIN/TAZOBACTAM 3.375 GM VIAL IVPB ONE ×3 (01:02→18:29)
[2020-04-13] MEDS ORDERED: DEXTROSE 5%-WATER - 50 ML IVPB ONE ×3 (01:02→18:29)
[2020-04-13] MEDS: PIPERACILLIN/TAZOB 3.375 GM 3.375 GM in DEXTROSE 5%-WATER - 50 ML IVPB SCH ×3 (01:14→18:43)
[2020-04-13] MEDS ORDERED: PT OWN MED DRAWER 7, Y5N ONE (09:30)
[2020-04-13] MEDS: LACTULOSE 20 GM/30 ML UDC (FOR ORAL USE ONLY) PO SCH ×2 (09:53→21:14)
[2020-04-13] MEDS: MULTIVITAMINS THER W-MINERALS COMBO TABLET (FP) PO SCH (09:53)
[2020-04-13] MEDS: ZINC SULFATE 220 MG CAPSULE (FP) PO SCH (09:53)
[2020-04-13] MEDS: PYRIDOXINE HCL (B-6) 50 MG TABLET (FP) PO SCH (09:53)
[2020-04-13] MEDS: PANTOPRAZOLE 40 MG TABLET PO SCH (09:53)
[2020-04-13] MEDS: FOLIC ACID 1 MG TABLET (FP) PO SCH (09:54)
[2020-04-13] MEDS: ASCORBIC ACID 500 MG TABLET (FP) PO SCH (09:54)
[2020-04-13] MEDS: CYANOCOBALAMIN 1,000 MCG TABLET (FP) PO SCH (09:54)
[2020-04-13] MEDS: AMINO ACIDS/PROTEIN HYDROLYS 30 ML LIQUID.PKT PO SCH ×2 (09:54→18:43)
[2020-04-13] MEDS: FERROUS SO4 325 MG TABLET (FP) PO SCH (09:54)
[2020-04-13] MEDS: CHOLECALCIFEROL (VIT D3) 400 UNIT (10 MCG) TABLET PO SCH (09:54)
[2020-04-13] MEDS: ENOXAPARIN NA (PORCINE) 40 MG/0.4 ML DISP.SYRIN SQ SCH (09:54)
--- NOTE | 2020-04-13 15:37 | PN ---
Progress Note, Physician History of Present Illness: Pt states he feels well. Has no specific complaints. - Current Medication List Current Medications: Active Medications Amino Acids (Prosource No Carb Liquid Pkt) 30 ml PO BID@0800,1730 [facility] Last Admin: 04/13/20 09:54 Dose: 30 ml Documented by: Ascorbic Acid (Vitamin C -) 500 mg PO DAILY [facility] Last Admin: 04/13/20 09:54 Dose: 500 mg Documented by: Baclofen (Lioresal -) 20 mg PO HS [facility] Last Admin: 04/12/20 21:01 Dose: 20 mg Documented by: Cholecalciferol (Vitamin D3 -) 400 unit PO DAILY [facility] Last Admin: 04/13/20 09:54 Dose: 400 unit Documented by: Cyanocobalamin (Vitamin B12 -) 1,000 mcg PO DAILY [facility] Last Admin: 04/13/20 09:54 Dose: 1,000 mcg Documented by: Enoxaparin Sodium (Lovenox -) 40 mg SQ DAILY [facility] Last Admin: 04/13/20 09:54 Dose: 40 mg Documented by: Ferrous Sulfate (Feosol -) 325 mg PO DAILY [facility] Last Admin: 04/13/20 09:54 Dose: 325 mg Documented by: Folic Acid (Folic Acid -) 1 mg PO DAILY [facility] Last Admin: 04/13/20 09:54 Dose: 1 mg Documented by: Gabapentin (Neurontin -) 600 mg PO HS [facility] Last Admin: 04/12/20 21:01 Dose: 600 mg Documented by: Piperacillin Sod/Tazobactam (Sod 3.375 gm/ Dextrose) 50 mls @ 100 mls/hr IVPB Q8H-IV [facility]; Protocol Last Admin: 04/13/20 09:53 Dose: 100 mls/hr Documented by: Lactulose (Cephulac (Oral Use)) 10 gm PO BID [facility] Last Admin: 04/13/20 09:53 Dose: Not Given Documented by: Lorazepam (Ativan -) 0.5 mg PO HS PRN PRN Reason: INSOMNIA Morphine Sulfate (Morphine Sulfate) 2 mg IVPUSH Q6H PRN PRN Reason: PAIN LEVEL 7 - 10 Multivitamins/Minerals (Theragran-M) 1 each PO DAILY [facility] Last Admin: 04/13/20 09:53 Dose: 1 each Documented by: Ondansetron HCl (Zofran Injection) 4 mg IVPUSH Q6H PRN PRN Reason: NAUSEA AND/OR VOMITING Ondansetron HCl (Zofran Injection) 4 mg IVPUSH Q6H PRN PRN Reason: NAUSEA AND/OR VOMITING Oxycodone HCl (Roxicodone -) 5 mg PO Q4H PRN PRN Reason: PAIN LEVEL 1-5 Oxycodone HCl (Roxicodone -) 10 mg PO Q4H PRN PRN Reason: PAIN LEVEL 6-10 Pantoprazole Sodium (Protonix -) 40 mg PO DAILY [facility] Last Admin: 04/13/20 09:53 Dose: 40 mg Documented by: Pyridoxine HCl (Vitamin B6 -) 50 mg PO DAILY [facility] Last Admin: 04/13/20 09:53 Dose: 50 mg Documented by: Zinc Sulfate (Orazinc -) 220 mg PO DAILY [facility] Last Admin: 04/13/20 09:53 Dose: 220 mg Documented by: - Objective Vital Signs: Vital Signs Temperature 98.4 F 04/13/20 05:18 Pulse Rate 62 04/13/20 05:18 Respiratory Rate 18 04/13/20 05:18 Blood Pressure 83/52 L 04/13/20 05:18 O2 Sat by Pulse Oximetry (%) 99 04/13/20 05:18 Constitutional: Yes: No Distress, Calm Cardiovascular: Yes: Regular Rate and Rhythm Respiratory: Yes: Regular Gastrointestinal: Yes: Normal Bowel Sounds, Soft, Other (colostomy) Genitourinary: Yes: Incontinence Musculoskeletal: Yes: Other (paraplegia) Wound/Incision: Yes: Dressing Dry and Intact (Lt leg vac/dressing intact) Neurological: Yes: Alert, Oriented Labs: CBC, BMP 04/11/20 08:10 04/11/20 08:10 Laboratory Last Values WBC 6.1 K/mm3 (4.0-10.0) 04/11/20 08:10 RBC 3.67 M/mm3 (4.00-5.60) L 04/11/20 08:10 Hgb 11.0 GM/dL (11.7-16.9) L 04/11/20 08:10 Hct 33.8 % (35.4-49) L 04/11/20 08:10 MCV 92.0 fl (80-96) 04/11/20 08:10 MCH 30.0 pg (25.7-33.7) 04/11/20 08:10 MCHC 32.6 g/dl (32.0-35.9) 04/11/20 08:10 RDW 13.9 % (11.9-15.9) 04/11/20 08:10 Plt Count 290 K/MM3 (134-434) 04/11/20 08:10 MPV 8.5 fl (7.5-11.1) 04/11/20 08:10 Absolute Neuts (auto) 4.5 K/mm3 (1.5-8.0) 04/11/20 08:10 Neutrophils % 74.2 % (42.8-82.8) 04/11/20 08:10 Lymphocytes % 17.2 % (8-40) 04/11/20 08:10 Monocytes % 6.8 % (3.8-10.2) 04/11/20 08:10 Eosinophils % 1.2 % (0-4.5) 04/11/20 08:10 Basophils % 0.6 % (0-2.0) 04/11/20 08:10 Nucleated RBC % 0 % (0-0) 04/11/20 08:10 Sodium 140 mmol/L (136-145) 04/11/20 08:10 Potassium 4.1 mmol/L (3.5-5.1) 04/11/20 08:10 Chloride 107 mmol/L (98-107) 04/11/20 08:10 Carbon Dioxide 26 mmol/L (21-32) 04/11/20 08:10 Anion Gap 7 MMOL/L (8-16) L 04/11/20 08:10 BUN 16.3 mg/dL (7-18) 04/11/20 08:10 Creatinine 0.5 mg/dL (0.55-1.3) L 04/11/20 08:10 Est GFR (CKD-EPI)AfAm 129.05 04/11/20 08:10 Est GFR (CKD-EPI)NonAf 111.35 04/11/20 08:10 Random Glucose 100 mg/dL (74-106) 04/11/20 08:10 Calcium 9.1 mg/dL (8.5-10.1) 04/11/20 08:10 Total Bilirubin 0.6 mg/dL (0.2-1) 04/11/20 08:10 AST 16 U/L (15-37) 04/11/20 08:10 ALT 10 U/L (13-61) L 04/11/20 08:10 Alkaline Phosphatase 120 U/L (45-117) H 04/11/20 08:10 Total Protein 7.1 g/dl (6.4-8.2) 04/11/20 08:10 Albumin 2.8 g/dl (3.4-5.0) L 04/11/20 08:10 Microbiology 04/10/20 15:30 Leg - Left Lower Gram Stain - Final 04/10/20 15:30 Leg - Left Lower Wound Culture - Preliminary Pseudomonas Aeruginosa Pseudomonas Aeruginosa#2 Non Lactose Fermenting Gnb Group D Strep Or Entero Coccus Problem List - Problems (1) Encounter for debridement of skin Code(s): PCP1850 - (2) Paraplegia, complete Code(s): G82.21 - PARAPLEGIA, COMPLETE Assessment/Plan Left leg wound s/p debridement/flap placement/wound vac -- wound culture results reviewed -- continue current antibiotics for now -- Podiatry following -- wound care pt afebrile, without complaints
--- NOTE | 2020-04-13 20:35 | PN ---
Progress Note, Physician History of Present Illness: Pt had 2 BM's - Current Medication List Current Medications: Active Medications Amino Acids (Prosource No Carb Liquid Pkt) 30 ml PO BID@0800,1730 [facility] Last Admin: 04/13/20 18:43 Dose: 30 ml Documented by: Ascorbic Acid (Vitamin C -) 500 mg PO DAILY [facility] Last Admin: 04/13/20 09:54 Dose: 500 mg Documented by: Baclofen (Lioresal -) 20 mg PO [facility] Last Admin: 04/12/20 21:01 Dose: 20 mg Documented by: Cholecalciferol (Vitamin D3 -) 400 unit PO DAILY [facility] Last Admin: 04/13/20 09:54 Dose: 400 unit Documented by: Cyanocobalamin (Vitamin B12 -) 1,000 mcg PO DAILY [facility] Last Admin: 04/13/20 09:54 Dose: 1,000 mcg Documented by: Enoxaparin Sodium (Lovenox -) 40 mg SQ DAILY [facility] Last Admin: 04/13/20 09:54 Dose: 40 mg Documented by: Ferrous Sulfate (Feosol -) 325 mg PO DAILY [facility] Last Admin: 04/13/20 09:54 Dose: 325 mg Documented by: Folic Acid (Folic Acid -) 1 mg PO DAILY [facility] Last Admin: 04/13/20 09:54 Dose: 1 mg Documented by: Gabapentin (Neurontin -) 600 mg PO [facility] Last Admin: 04/12/20 21:01 Dose: 600 mg Documented by: Piperacillin Sod/Tazobactam (Sod 3.375 gm/ Dextrose) 50 mls @ 100 mls/hr IVPB Q8H-IV [facility]; Protocol Last Admin: 04/13/20 18:43 Dose: 100 mls/hr Documented by: Lactulose (Cephulac (Oral Use)) 10 gm PO BID [facility] Last Admin: 04/13/20 09:53 Dose: Not Given Documented by: Multivitamins/Minerals (Theragran-M) 1 each PO DAILY [facility] Last Admin: 04/13/20 09:53 Dose: 1 each Documented by: Ondansetron HCl (Zofran Injection) 4 mg IVPUSH Q6H PRN PRN Reason: NAUSEA AND/OR VOMITING Ondansetron HCl (Zofran Injection) 4 mg IVPUSH Q6H PRN PRN Reason: NAUSEA AND/OR VOMITING Pantoprazole Sodium (Protonix -) 40 mg PO DAILY [facility] Last Admin: 04/13/20 09:53 Dose: 40 mg Documented by: Pyridoxine HCl (Vitamin B6 -) 50 mg PO DAILY [facility] Last Admin: 04/13/20 09:53 Dose: 50 mg Documented by: Zinc Sulfate (Orazinc -) 220 mg PO DAILY [facility] Last Admin: 04/13/20 09:53 Dose: 220 mg Documented by: - Objective Vital Signs: Vital Signs Temperature 98.4 F 04/13/20 05:18 Pulse Rate 62 04/13/20 05:18 Respiratory Rate 18 04/13/20 05:18 Blood Pressure 83/52 L 04/13/20 05:18 O2 Sat by Pulse Oximetry (%) 99 04/13/20 05:18 Cardiovascular: Yes: WNL Respiratory: Yes: WNL, Regular, CTA Bilaterally Gastrointestinal: Yes: WNL, Normal Bowel Sounds, Soft Extremities: Yes: Other (LLE w/ wound vac) Labs: CBC, BMP 04/11/20 08:10 04/11/20 08:10 Problem List - Problems (1) Encounter for debridement of skin Assessment/Plan: Cont IV atnibxs Cont wound care Code(s): [id number] - (2) Constipation Code(s): K59.00 - CONSTIPATION, UNSPECIFIED (3) Paraplegia, complete Code(s): G82.21 - PARAPLEGIA, COMPLETE
[2020-04-13] MEDS: BACLOFEN 10 MG TABLET (FP) PO SCH (21:13)
[2020-04-13] MEDS: GABAPENTIN 300 MG CAPSULE PO SCH (21:13)
[2020-04-14] MEDS ORDERED: PIPERACILLIN/TAZOBACTAM 3.375 GM VIAL IVPB ONE ×3 (00:53→18:57)
[2020-04-14] MEDS ORDERED: DEXTROSE 5%-WATER - 50 ML IVPB ONE ×3 (00:53→18:57)
[2020-04-14] MEDS: PIPERACILLIN/TAZOB 3.375 GM 3.375 GM in DEXTROSE 5%-WATER - 50 ML IVPB SCH ×3 (01:23→18:58)
[2020-04-14] MEDS: LACTULOSE 20 GM/30 ML UDC (FOR ORAL USE ONLY) PO SCH ×2 (09:30→21:49)
[2020-04-14] MEDS: PANTOPRAZOLE 40 MG TABLET PO SCH (09:32)
[2020-04-14] MEDS: FOLIC ACID 1 MG TABLET (FP) PO SCH (09:32)
[2020-04-14] MEDS: ZINC SULFATE 220 MG CAPSULE (FP) PO SCH (09:32)
[2020-04-14] MEDS: AMINO ACIDS/PROTEIN HYDROLYS 30 ML LIQUID.PKT PO SCH ×2 (09:32→18:58)
[2020-04-14] MEDS: FERROUS SO4 325 MG TABLET (FP) PO SCH (09:32)
[2020-04-14] MEDS: MULTIVITAMINS THER W-MINERALS COMBO TABLET (FP) PO SCH (09:32)
[2020-04-14] MEDS: ASCORBIC ACID 500 MG TABLET (FP) PO SCH (09:32)
[2020-04-14] MEDS: CHOLECALCIFEROL (VIT D3) 400 UNIT (10 MCG) TABLET PO SCH (09:33)
[2020-04-14] MEDS: ENOXAPARIN NA (PORCINE) 40 MG/0.4 ML DISP.SYRIN SQ SCH (09:33)
[2020-04-14] MEDS: PYRIDOXINE HCL (B-6) 50 MG TABLET (FP) PO SCH (09:33)
[2020-04-14] MEDS: CYANOCOBALAMIN 1,000 MCG TABLET (FP) PO SCH (09:33)
--- NOTE | 2020-04-14 20:51 | PN ---
Progress Note, Physician History of Present Illness: No new complaints. Remains afebrile, tolerating antibiotics. - Current Medication List Current Medications: Active Medications Amino Acids (Prosource No Carb Liquid Pkt) 30 ml PO BID@0800,1730 [facility] Last Admin: 04/14/20 18:58 Dose: 30 ml Documented by: Ascorbic Acid (Vitamin C -) 500 mg PO DAILY [facility] Last Admin: 04/14/20 09:32 Dose: 500 mg Documented by: Baclofen (Lioresal -) 20 mg PO [facility] Last Admin: 04/13/20 21:13 Dose: 20 mg Documented by: Cholecalciferol (Vitamin D3 -) 400 unit PO DAILY [facility] Last Admin: 04/14/20 09:33 Dose: 400 unit Documented by: Cyanocobalamin (Vitamin B12 -) 1,000 mcg PO DAILY [facility] Last Admin: 04/14/20 09:33 Dose: 1,000 mcg Documented by: Enoxaparin Sodium (Lovenox -) 40 mg SQ DAILY [facility] Last Admin: 04/14/20 09:33 Dose: 40 mg Documented by: Ferrous Sulfate (Feosol -) 325 mg PO DAILY [facility] Last Admin: 04/14/20 09:32 Dose: 325 mg Documented by: Folic Acid (Folic Acid -) 1 mg PO DAILY [facility] Last Admin: 04/14/20 09:32 Dose: 1 mg Documented by: Gabapentin (Neurontin -) 600 mg PO [facility] Last Admin: 04/13/20 21:13 Dose: 600 mg Documented by: Piperacillin Sod/Tazobactam (Sod 3.375 gm/ Dextrose) 50 mls @ 100 mls/hr IVPB Q8H-IV [facility]; Protocol Last Admin: 04/14/20 18:58 Dose: 100 mls/hr Documented by: Lactulose (Cephulac (Oral Use)) 10 gm PO BID [facility] Last Admin: 04/14/20 09:30 Dose: 10 gm Documented by: Multivitamins/Minerals (Theragran-M) 1 each PO DAILY [facility] Last Admin: 04/14/20 09:32 Dose: 1 each Documented by: Ondansetron HCl (Zofran Injection) 4 mg IVPUSH Q6H PRN PRN Reason: NAUSEA AND/OR VOMITING Ondansetron HCl (Zofran Injection) 4 mg IVPUSH Q6H PRN PRN Reason: NAUSEA AND/OR VOMITING Pantoprazole Sodium (Protonix -) 40 mg PO DAILY [facility] Last Admin: 04/14/20 09:32 Dose: 40 mg Documented by: Pyridoxine HCl (Vitamin B6 -) 50 mg PO DAILY [facility] Last Admin: 04/14/20 09:33 Dose: 50 mg Documented by: Zinc Sulfate (Orazinc -) 220 mg PO DAILY [facility] Last Admin: 04/14/20 09:32 Dose: 220 mg Documented by: - Objective Vital Signs: Vital Signs Temperature 97.6 F 04/14/20 14:00 Pulse Rate 60 04/14/20 14:00 Respiratory Rate 20 04/14/20 14:00 Blood Pressure 110/60 04/14/20 14:00 O2 Sat by Pulse Oximetry (%) 97 04/14/20 14:00 Constitutional: Yes: No Distress, Calm Neck: Yes: Supple Cardiovascular: Yes: Regular Rate and Rhythm Respiratory: Yes: Regular Gastrointestinal: Yes: Normal Bowel Sounds Genitourinary: Yes: WNL Wound/Incision: Yes: Other (LLE wound vac, no tenderness) Labs: CBC, BMP 04/11/20 08:10 04/11/20 08:10 Microbiology 04/10/20 15:30 Leg - Left Lower Gram Stain - Final 04/10/20 15:30 Leg - Left Lower Wound Culture - Preliminary Pseudomonas Aeruginosa Escherichia Coli Group D Strep Or Entero Coccus Problem List - Problems (1) Encounter for debridement of skin Code(s): XNL0814 - (2) Paraplegia, complete Code(s): G82.21 - PARAPLEGIA, COMPLETE Assessment/Plan Left leg wound s/p debridement/flap placement POD#4 /wound vac -- continue Zosyn for now -- wound vac in place -- pt afebrile, without pain -- Podiatry following -- wound care
[2020-04-14] MEDS: BACLOFEN 10 MG TABLET (FP) PO SCH (21:49)
[2020-04-14] MEDS: GABAPENTIN 300 MG CAPSULE PO SCH (21:49)
--- NOTE | 2020-04-14 22:24 | PN ---
Progress Note, Physician History of Present Illness: No new complaints - Current Medication List Current Medications: Active Medications Amino Acids (Prosource No Carb Liquid Pkt) 30 ml PO BID@0800,1730 [facility] Last Admin: 04/14/20 18:58 Dose: 30 ml Documented by: Ascorbic Acid (Vitamin C -) 500 mg PO DAILY [facility] Last Admin: 04/14/20 09:32 Dose: 500 mg Documented by: Baclofen (Lioresal -) 20 mg PO [facility] Last Admin: 04/14/20 21:49 Dose: 20 mg Documented by: Cholecalciferol (Vitamin D3 -) 400 unit PO DAILY [facility] Last Admin: 04/14/20 09:33 Dose: 400 unit Documented by: Cyanocobalamin (Vitamin B12 -) 1,000 mcg PO DAILY [facility] Last Admin: 04/14/20 09:33 Dose: 1,000 mcg Documented by: Enoxaparin Sodium (Lovenox -) 40 mg SQ DAILY [facility] Last Admin: 04/14/20 09:33 Dose: 40 mg Documented by: Ferrous Sulfate (Feosol -) 325 mg PO DAILY [facility] Last Admin: 04/14/20 09:32 Dose: 325 mg Documented by: Folic Acid (Folic Acid -) 1 mg PO DAILY [facility] Last Admin: 04/14/20 09:32 Dose: 1 mg Documented by: Gabapentin (Neurontin -) 600 mg PO [facility] Last Admin: 04/14/20 21:49 Dose: 600 mg Documented by: Piperacillin Sod/Tazobactam (Sod 3.375 gm/ Dextrose) 50 mls @ 100 mls/hr IVPB Q8H-IV [facility]; Protocol Last Admin: 04/14/20 18:58 Dose: 100 mls/hr Documented by: Lactulose (Cephulac (Oral Use)) 10 gm PO BID [facility] Last Admin: 04/14/20 21:49 Dose: 10 gm Documented by: Multivitamins/Minerals (Theragran-M) 1 each PO DAILY [facility] Last Admin: 04/14/20 09:32 Dose: 1 each Documented by: Ondansetron HCl (Zofran Injection) 4 mg IVPUSH Q6H PRN PRN Reason: NAUSEA AND/OR VOMITING Ondansetron HCl (Zofran Injection) 4 mg IVPUSH Q6H PRN PRN Reason: NAUSEA AND/OR VOMITING Pantoprazole Sodium (Protonix -) 40 mg PO DAILY [facility] Last Admin: 04/14/20 09:32 Dose: 40 mg Documented by: Pyridoxine HCl (Vitamin B6 -) 50 mg PO DAILY [facility] Last Admin: 04/14/20 09:33 Dose: 50 mg Documented by: Zinc Sulfate (Orazinc -) 220 mg PO DAILY [facility] Last Admin: 04/14/20 09:32 Dose: 220 mg Documented by: - Objective Vital Signs: Vital Signs Temperature 97.6 F 04/14/20 14:00 Pulse Rate 60 04/14/20 14:00 Respiratory Rate 04/14/20 14:00 Blood Pressure 110/60 04/14/20 14:00 O2 Sat by Pulse Oximetry (%) 97 04/14/20 14:00 Neck: Yes: WNL, Supple Cardiovascular: Yes: WNL, Regular Rate and Rhythm Respiratory: Yes: WNL, Regular, CTA Bilaterally Gastrointestinal: Yes: WNL, Normal Bowel Sounds, Soft, Other ((+) colostomy) Extremities: Yes: Other (LLE in dressing) Labs: CBC, BMP 04/11/20 08:10 04/11/20 08:10 Problem List - Problems (1) Encounter for debridement of skin Assessment/Plan: Cont IV atnibxs Cont wound care Code(s): GMR1527 - (2) Constipation Code(s): K59.00 - CONSTIPATION, UNSPECIFIED (3) Paraplegia, complete Code(s): G82.21 - PARAPLEGIA, COMPLETE
[2020-04-15] MEDS ORDERED: DEXTROSE 5%-WATER - 50 ML IVPB ONE ×3 (01:01→16:48)
[2020-04-15] MEDS ORDERED: PIPERACILLIN/TAZOBACTAM 3.375 GM VIAL IVPB ONE ×3 (01:01→16:48)
[2020-04-15] MEDS: PIPERACILLIN/TAZOB 3.375 GM 3.375 GM in DEXTROSE 5%-WATER - 50 ML IVPB SCH ×3 (01:08→17:57)
--- NOTE | 2020-04-15 10:51 | PN ---
Progress Note, Physician History of Present Illness: stable no new issues - Current Medication List Current Medications: Active Medications Amino Acids (Prosource No Carb Liquid Pkt) 30 ml PO BID@0800,1730 [facility] Last Admin: 04/14/20 18:58 Dose: 30 ml Documented by: Ascorbic Acid (Vitamin C -) 500 mg PO DAILY [facility] Last Admin: 04/14/20 09:32 Dose: 500 mg Documented by: Baclofen (Lioresal -) 20 mg PO [facility] Last Admin: 04/14/20 21:49 Dose: 20 mg Documented by: Cholecalciferol (Vitamin D3 -) 400 unit PO DAILY [facility] Last Admin: 04/14/20 09:33 Dose: 400 unit Documented by: Cyanocobalamin (Vitamin B12 -) 1,000 mcg PO DAILY [facility] Last Admin: 04/14/20 09:33 Dose: 1,000 mcg Documented by: Enoxaparin Sodium (Lovenox -) 40 mg SQ DAILY [facility] Last Admin: 04/14/20 09:33 Dose: 40 mg Documented by: Ferrous Sulfate (Feosol -) 325 mg PO DAILY [facility] Last Admin: 04/14/20 09:32 Dose: 325 mg Documented by: Folic Acid (Folic Acid -) 1 mg PO DAILY [facility] Last Admin: 04/14/20 09:32 Dose: 1 mg Documented by: Gabapentin (Neurontin -) 600 mg PO [facility] Last Admin: 04/14/20 21:49 Dose: 600 mg Documented by: Piperacillin Sod/Tazobactam (Sod 3.375 gm/ Dextrose) 50 mls @ 100 mls/hr IVPB Q8H-IV [facility]; Protocol Last Admin: 04/15/20 01:08 Dose: 100 mls/hr Documented by: Lactulose (Cephulac (Oral Use)) 10 gm PO BID [facility] Last Admin: 04/14/20 21:49 Dose: 10 gm Documented by: Multivitamins/Minerals (Theragran-M) 1 each PO DAILY [facility] Last Admin: 04/14/20 09:32 Dose: 1 each Documented by: Ondansetron HCl (Zofran Injection) 4 mg IVPUSH Q6H PRN PRN Reason: NAUSEA AND/OR VOMITING Ondansetron HCl (Zofran Injection) 4 mg IVPUSH Q6H PRN PRN Reason: NAUSEA AND/OR VOMITING Pantoprazole Sodium (Protonix -) 40 mg PO DAILY [facility] Last Admin: 04/14/20 09:32 Dose: 40 mg Documented by: Pyridoxine HCl (Vitamin B6 -) 50 mg PO DAILY [facility] Last Admin: 04/14/20 09:33 Dose: 50 mg Documented by: Zinc Sulfate (Orazinc -) 220 mg PO DAILY [facility] Last Admin: 04/14/20 09:32 Dose: 220 mg Documented by: - Objective Vital Signs: Vital Signs Temperature 97.9 F 04/15/20 06:00 Pulse Rate 57 L 04/15/20 06:00 Respiratory Rate 18 04/15/20 06:00 Blood Pressure 101/65 04/15/20 06:00 O2 Sat by Pulse Oximetry (%) 95 04/15/20 06:00 Constitutional: Yes: No Distress, Calm Cardiovascular: Yes: Regular Rate and Rhythm Respiratory: Yes: Regular, CTA Bilaterally Gastrointestinal: Yes: Normal Bowel Sounds, Soft Musculoskeletal: Yes: WNL Extremities: Yes: Other Wound/Incision: Yes: Dressing Dry and Intact Neurological: Yes: Alert, Oriented Psychiatric: Yes: Alert, Oriented Labs: CBC, BMP 04/11/20 08:10 04/11/20 08:10 Assessment/Plan Problem List - Problems (1) Encounter for debridement of skin Code(s): ZIB9201 - (2) Paraplegia, complete Code(s): G82.21 - PARAPLEGIA, COMPLETE (3) Pressure injury of left leg, stage 3 Assessment/Plan: requires frequent turnings Code(s): L89.893 - PRESSURE ULCER OF OTHER SITE, STAGE 3 sacral ulcers Assessment/Plan continue abx will d/w the team plastics to decide
[2020-04-15] MEDS: PANTOPRAZOLE 40 MG TABLET PO SCH (10:56)
[2020-04-15] MEDS: FOLIC ACID 1 MG TABLET (FP) PO SCH (10:56)
[2020-04-15] MEDS: FERROUS SO4 325 MG TABLET (FP) PO SCH (10:56)
[2020-04-15] MEDS: AMINO ACIDS/PROTEIN HYDROLYS 30 ML LIQUID.PKT PO SCH ×2 (10:56→17:07)
[2020-04-15] MEDS: MULTIVITAMINS THER W-MINERALS COMBO TABLET (FP) PO SCH (10:57)
[2020-04-15] MEDS: ZINC SULFATE 220 MG CAPSULE (FP) PO SCH (10:57)
[2020-04-15] MEDS: ASCORBIC ACID 500 MG TABLET (FP) PO SCH (10:57)
[2020-04-15] MEDS: CHOLECALCIFEROL (VIT D3) 400 UNIT (10 MCG) TABLET PO SCH (10:57)
[2020-04-15] MEDS: LACTULOSE 20 GM/30 ML UDC (FOR ORAL USE ONLY) PO SCH ×2 (10:59→21:09)
[2020-04-15] MEDS: ENOXAPARIN NA (PORCINE) 40 MG/0.4 ML DISP.SYRIN SQ SCH (11:00)
[2020-04-15] MEDS ORDERED: PT OWN MED DRAWER 7, Y5N ONE (11:47)
[2020-04-15] MEDS: CYANOCOBALAMIN 1,000 MCG TABLET (FP) PO SCH (11:48)
[2020-04-15] MEDS: PYRIDOXINE HCL (B-6) 50 MG TABLET (FP) PO SCH (11:48)
--- NOTE | 2020-04-15 16:23 | PATH ---
Surgical Pathology Report Patient Name: ADELA BONNER Med. Rec. #: [id number] /Age/Gender: 1950 (Age: 69) / M Account: [id number] Location: [address] [place] [address]/[facility] Taken: 04/10/2020 Received: 04/11/2020 Reported: 04/15/2020 Physicians: Shayla Arenas M.D. Specimen(s) Received LEFT LEG WOUND Clinical History Pressure ulcer of other site, stage IV Final Diagnosis LEFT LEG WOUND, EXCISION: PORTIONS OF SKIN AND FIBROUS TISSUE WITH EXTENSIVE ULCERATION, SEVERE, ACUTE AND CHRONIC INFLAMMATION WITH ABSCESS AND GRANULATION TISSUE FORMATION. Electronically Signed Ivonne Loera M.D. Gross Description Received in formalin, labeled with "left leg wound", are multiple portion of skin and soft tissue, ranging from 1 cm to the largest, which measures 8.5 x 2.5 x 0.4 cm in greatest dimension. The larger two portions of skin show ulceration which measures 7 cm in greatest dimension. The specimen is serially sectioned and client representative sections submitted in one cassette KWS/04/11/2020 mineshki/04/11/2020
--- NOTE | 2020-04-15 16:29 | PN ---
Progress Note, Physician - Current Medication List Current Medications: Active Medications Amino Acids (Prosource No Carb Liquid Pkt) 30 ml PO BID@0800,1730 [facility] Last Admin: 04/15/20 10:56 Dose: 30 ml Documented by: Ascorbic Acid (Vitamin C -) 500 mg PO DAILY [facility] Last Admin: 04/15/20 10:57 Dose: 500 mg Documented by: Baclofen (Lioresal -) 20 mg PO [facility] Last Admin: 04/14/20 21:49 Dose: 20 mg Documented by: Cholecalciferol (Vitamin D3 -) 400 unit PO DAILY [facility] Last Admin: 04/15/20 10:57 Dose: 400 unit Documented by: Cyanocobalamin (Vitamin B12 -) 1,000 mcg PO DAILY [facility] Last Admin: 04/15/20 11:48 Dose: 1,000 mcg Documented by: Enoxaparin Sodium (Lovenox -) 40 mg SQ DAILY [facility] Last Admin: 04/15/20 11:00 Dose: 40 mg Documented by: Ferrous Sulfate (Feosol -) 325 mg PO DAILY [facility] Last Admin: 04/15/20 10:56 Dose: 325 mg Documented by: Folic Acid (Folic Acid -) 1 mg PO DAILY [facility] Last Admin: 04/15/20 10:56 Dose: 1 mg Documented by: Gabapentin (Neurontin -) 600 mg PO [facility] Last Admin: 04/14/20 21:49 Dose: 600 mg Documented by: Piperacillin Sod/Tazobactam (Sod 3.375 gm/ Dextrose) 50 mls @ 100 mls/hr IVPB Q8H-IV [facility]; Protocol Last Admin: 04/15/20 10:56 Dose: 100 mls/hr Documented by: Lactulose (Cephulac (Oral Use)) 10 gm PO BID [facility] Last Admin: 04/15/20 10:59 Dose: 10 gm Documented by: Multivitamins/Minerals (Theragran-M) 1 each PO DAILY [facility] Last Admin: 04/15/20 10:57 Dose: 1 each Documented by: Ondansetron HCl (Zofran Injection) 4 mg IVPUSH Q6H PRN PRN Reason: NAUSEA AND/OR VOMITING Ondansetron HCl (Zofran Injection) 4 mg IVPUSH Q6H PRN PRN Reason: NAUSEA AND/OR VOMITING Pantoprazole Sodium (Protonix -) 40 mg PO DAILY [facility] Last Admin: 04/15/20 10:56 Dose: 40 mg Documented by: Pyridoxine HCl (Vitamin B6 -) 50 mg PO DAILY [facility] Last Admin: 04/15/20 11:48 Dose: 50 mg Documented by: Zinc Sulfate (Orazinc -) 220 mg PO DAILY [facility] Last Admin: 04/15/20 10:57 Dose: 220 mg Documented by: - Objective Vital Signs: Vital Signs Temperature 98.0 F 04/15/20 14:30 Pulse Rate 80 04/15/20 14:30 Respiratory Rate 18 04/15/20 14:30 Blood Pressure 84/46 L 04/15/20 14:30 O2 Sat by Pulse Oximetry (%) 98 04/15/20 10:00 Constitutional: Yes: No Distress HENT: Yes: Atraumatic Neck: Yes: Supple Cardiovascular: Yes: Regular Rate and Rhythm Respiratory: Yes: CTA Bilaterally Gastrointestinal: Yes: Normal Bowel Sounds Extremities: Yes: Other (llex wound dressing intact) Neurological: Yes: Alert, Oriented Labs: CBC, BMP 04/11/20 08:10 04/11/20 08:10 Problem List - Problems (1) Encounter for debridement of skin Assessment/Plan: s/p debridement wound care iv abx surgery fu needed Code(s): [id number] - (2) Paraplegia, complete Code(s): G82.21 - PARAPLEGIA, COMPLETE (3) Pressure injury of left leg, stage 3 Assessment/Plan: requires frequent turnings Code(s): L89.893 - PRESSURE ULCER OF OTHER SITE, STAGE 3
[2020-04-15] MEDS: GABAPENTIN 300 MG CAPSULE PO SCH (21:09)
[2020-04-15] MEDS: BACLOFEN 10 MG TABLET (FP) PO SCH (21:09)
[2020-04-16] MEDS ORDERED: PIPERACILLIN/TAZOBACTAM 3.375 GM VIAL IVPB ONE ×3 (01:12→16:47)
[2020-04-16] MEDS ORDERED: DEXTROSE 5%-WATER - 50 ML IVPB ONE ×3 (01:12→16:48)
[2020-04-16] MEDS: PIPERACILLIN/TAZOB 3.375 GM 3.375 GM in DEXTROSE 5%-WATER - 50 ML IVPB SCH ×3 (01:20→17:50)
[2020-04-16] MEDS ORDERED: PT OWN MED DRAWER 7, Y5N ONE (10:50)
[2020-04-16] MEDS: LACTULOSE 20 GM/30 ML UDC (FOR ORAL USE ONLY) PO SCH ×2 (10:55→21:18)
[2020-04-16] MEDS: FERROUS SO4 325 MG TABLET (FP) PO SCH (10:56)
[2020-04-16] MEDS: MULTIVITAMINS THER W-MINERALS COMBO TABLET (FP) PO SCH (10:56)
[2020-04-16] MEDS: CYANOCOBALAMIN 1,000 MCG TABLET (FP) PO SCH (10:56)
[2020-04-16] MEDS: FOLIC ACID 1 MG TABLET (FP) PO SCH (10:56)
[2020-04-16] MEDS: PANTOPRAZOLE 40 MG TABLET PO SCH (10:56)
[2020-04-16] MEDS: CHOLECALCIFEROL (VIT D3) 400 UNIT (10 MCG) TABLET PO SCH (10:56)
[2020-04-16] MEDS: ZINC SULFATE 220 MG CAPSULE (FP) PO SCH (10:56)
[2020-04-16] MEDS: ASCORBIC ACID 500 MG TABLET (FP) PO SCH (10:56)
[2020-04-16] MEDS: ENOXAPARIN NA (PORCINE) 40 MG/0.4 ML DISP.SYRIN SQ SCH (10:56)
[2020-04-16] MEDS: PYRIDOXINE HCL (B-6) 50 MG TABLET (FP) PO SCH (10:57)
--- NOTE | 2020-04-16 11:48 | PN ---
Progress Note (short form) - Note Progress Note: PLASTIC SURGERY POD #6 s/p Left leg wound debridement and split thickness skin graft placement with wound vac Doing well. No complaints. AVSS. Afebrile Gen: nad LLE: VAC removed on rounds and wound inspected. Periwound mariel intact. Graft appears viable. Not congested. Evidence of tissue granulation and wound contracture. [place]. Clean. Not malodorous. A/P: POD #6 -will apply new VAC -Cont current care -Next VAC change to be performed on by Surgical PAs. Dr. Arenas made aware and agrees with plan as outlined
--- NOTE | 2020-04-16 11:50 | PROC ---
VAC Application - Indications Surgical A decision was made to utilize Negative Pressure Therapy (VAC) to assist in expedite wound closure through promotion of granulation tissue formation. - Wound description Wound location: Other (LLE posteriorly) Length (cm): 9 Width (cm): 2.5 Wound area (sq cm): 22.50 Wound Description: Muscle exposed: No, Tendon exposed: No, Bone exposed: No, Undermining: No - Device VAC Selection: NPT - Procedure Area cleansed. Prepped/draped. Black foam tailored to fit just inside of wound borders to encourage wound contracture. An occlusive dressing applied. Suction disc placed in location so as not to be uncomfortable for the patient or cause any pressure point (foam bridge to hip as necessary). Good seal as verified by complete foam collapse and no leak on unit monitor. Pressure set to 125 mmHg, continuous. If using Veraflo: Settings: Soak time: 2 mins Volume: 8mL Frequency: Every 2 hours Dressing changes: --Wed - CPT Code CPT code: [id number] <50 sq cm
--- NOTE | 2020-04-16 12:07 | PN ---
Progress Note, Physician History of Present Illness: stable no new issues surgery note noted - Current Medication List Current Medications: Active Medications Amino Acids (Prosource No Carb Liquid Pkt) 30 ml PO BID@0800,1730 [facility] Last Admin: 04/15/20 17:07 Dose: 30 ml Documented by: Ascorbic Acid (Vitamin C -) 500 mg PO DAILY [facility] Last Admin: 04/16/20 10:56 Dose: 500 mg Documented by: Baclofen (Lioresal -) 20 mg PO [facility] Last Admin: 04/15/20 21:09 Dose: 20 mg Documented by: Cholecalciferol (Vitamin D3 -) 400 unit PO DAILY [facility] Last Admin: 04/16/20 10:56 Dose: 400 unit Documented by: Cyanocobalamin (Vitamin B12 -) 1,000 mcg PO DAILY [facility] Last Admin: 04/16/20 10:56 Dose: 1,000 mcg Documented by: Enoxaparin Sodium (Lovenox -) 40 mg SQ DAILY [facility] Last Admin: 04/16/20 10:56 Dose: 40 mg Documented by: Ferrous Sulfate (Feosol -) 325 mg PO DAILY [facility] Last Admin: 04/16/20 10:56 Dose: 325 mg Documented by: Folic Acid (Folic Acid -) 1 mg PO DAILY [facility] Last Admin: 04/16/20 10:56 Dose: 1 mg Documented by: Gabapentin (Neurontin -) 600 mg PO [facility] Last Admin: 04/15/20 21:09 Dose: 600 mg Documented by: Piperacillin Sod/Tazobactam (Sod 3.375 gm/ Dextrose) 50 mls @ 100 mls/hr IVPB Q8H-IV [facility]; Protocol Last Admin: 04/16/20 10:51 Dose: 100 mls/hr Documented by: Lactulose (Cephulac (Oral Use)) 10 gm PO BID [facility] Last Admin: 04/16/20 10:55 Dose: 10 gm Documented by: Linezolid (Zyvox Oral Suspension (Restricted To Id) -) 600 mg PO BID [facility] Multivitamins/Minerals (Theragran-M) 1 each PO DAILY [facility] Last Admin: 04/16/20 10:56 Dose: 1 each Documented by: Ondansetron HCl (Zofran Injection) 4 mg IVPUSH Q6H PRN PRN Reason: NAUSEA AND/OR VOMITING Ondansetron HCl (Zofran Injection) 4 mg IVPUSH Q6H PRN PRN Reason: NAUSEA AND/OR VOMITING Pantoprazole Sodium (Protonix -) 40 mg PO DAILY [facility] Last Admin: 04/16/20 10:56 Dose: 40 mg Documented by: Pyridoxine HCl (Vitamin B6 -) 50 mg PO DAILY [facility] Last Admin: 04/16/20 10:57 Dose: 50 mg Documented by: Zinc Sulfate (Orazinc -) 220 mg PO DAILY [facility] Last Admin: 04/16/20 10:56 Dose: 220 mg Documented by: - Objective Vital Signs: Vital Signs Temperature 98.4 F 04/16/20 05:05 Pulse Rate 52 L 04/16/20 05:05 Respiratory Rate 18 04/16/20 05:05 Blood Pressure 92/54 L 04/16/20 05:05 O2 Sat by Pulse Oximetry (%) 97 04/16/20 05:05 Constitutional: Yes: No Distress, Calm Cardiovascular: Yes: S1, S2 Respiratory: Yes: Regular, CTA Bilaterally Gastrointestinal: Yes: Normal Bowel Sounds, Soft Musculoskeletal: Yes: Other Extremities: Yes: Other Neurological: Yes: Alert, Oriented Psychiatric: Yes: Alert, Oriented Labs: CBC, BMP 04/11/20 08:10 04/11/20 08:10 Assessment/Plan Problem List - Problems (1) Encounter for debridement of skin Code(s): SFR8241 - (2) Paraplegia, complete Code(s): G82.21 - PARAPLEGIA, COMPLETE (3) Pressure injury of left leg, stage 3 Assessment/Plan: requires frequent turnings Code(s): L89.893 - PRESSURE ULCER OF OTHER SITE, STAGE 3 sacral ulcers Assessment/Plan continue abx cx results noted now having vre in the wound will add zyox
[2020-04-16] MEDS: AMINO ACIDS/PROTEIN HYDROLYS 30 ML LIQUID.PKT PO SCH ×2 (13:01→17:52)
[2020-04-16] MEDS: LINEZOLID 600 MG TABLET (RESTRICTED TO ID) PO SCH ×2 (14:26→21:18)
--- NOTE | 2020-04-16 17:30 | PN ---
Progress Note, Physician History of Present Illness: stable - Current Medication List Current Medications: Active Medications Amino Acids (Prosource No Carb Liquid Pkt) 30 ml PO BID@0800,1730 [facility] Last Admin: 04/16/20 13:01 Dose: Not Given Documented by: Ascorbic Acid (Vitamin C -) 500 mg PO DAILY [facility] Last Admin: 04/16/20 10:56 Dose: 500 mg Documented by: Baclofen (Lioresal -) 20 mg PO [facility] Last Admin: 04/15/20 21:09 Dose: 20 mg Documented by: Cholecalciferol (Vitamin D3 -) 400 unit PO DAILY [facility] Last Admin: 04/16/20 10:56 Dose: 400 unit Documented by: Cyanocobalamin (Vitamin B12 -) 1,000 mcg PO DAILY [facility] Last Admin: 04/16/20 10:56 Dose: 1,000 mcg Documented by: Enoxaparin Sodium (Lovenox -) 40 mg SQ DAILY [facility] Last Admin: 04/16/20 10:56 Dose: 40 mg Documented by: Ferrous Sulfate (Feosol -) 325 mg PO DAILY [facility] Last Admin: 04/16/20 10:56 Dose: 325 mg Documented by: Folic Acid (Folic Acid -) 1 mg PO DAILY [facility] Last Admin: 04/16/20 10:56 Dose: 1 mg Documented by: Gabapentin (Neurontin -) 600 mg PO [facility] Last Admin: 04/15/20 21:09 Dose: 600 mg Documented by: Piperacillin Sod/Tazobactam (Sod 3.375 gm/ Dextrose) 50 mls @ 100 mls/hr IVPB Q8H-IV [facility]; Protocol Last Admin: 04/16/20 10:51 Dose: 100 mls/hr Documented by: Lactulose (Cephulac (Oral Use)) 10 gm PO BID [facility] Last Admin: 04/16/20 10:55 Dose: 10 gm Documented by: Linezolid (Zyvox (Restricted To Id) -) 600 mg PO BID [facility] Last Admin: 04/16/20 14:26 Dose: 600 mg Documented by: Multivitamins/Minerals (Theragran-M) 1 each PO DAILY [facility] Last Admin: 04/16/20 10:56 Dose: 1 each Documented by: Ondansetron HCl (Zofran Injection) 4 mg IVPUSH Q6H PRN PRN Reason: NAUSEA AND/OR VOMITING Ondansetron HCl (Zofran Injection) 4 mg IVPUSH Q6H PRN PRN Reason: NAUSEA AND/OR VOMITING Pantoprazole Sodium (Protonix -) 40 mg PO DAILY [facility] Last Admin: 04/16/20 10:56 Dose: 40 mg Documented by: Pyridoxine HCl (Vitamin B6 -) 50 mg PO DAILY [facility] Last Admin: 04/16/20 10:57 Dose: 50 mg Documented by: Zinc Sulfate (Orazinc -) 220 mg PO DAILY [facility] Last Admin: 04/16/20 10:56 Dose: 220 mg Documented by: - Objective Vital Signs: Vital Signs Temperature 98.4 F 04/16/20 14:26 Pulse Rate 76 04/16/20 14:26 Respiratory Rate 18 04/16/20 14:26 Blood Pressure 104/53 L 04/16/20 14:26 O2 Sat by Pulse Oximetry (%) 97 04/16/20 09:00 Constitutional: Yes: No Distress HENT: Yes: Atraumatic Neck: Yes: Supple Cardiovascular: Yes: Regular Rate and Rhythm Respiratory: Yes: Rhonchi Gastrointestinal: Yes: Normal Bowel Sounds Extremities: Yes: Other (llex wound in dressing) Neurological: Yes: Alert, Oriented Labs: CBC, BMP 04/11/20 08:10 04/11/20 08:10 Problem List - Problems (1) Encounter for debridement of skin Assessment/Plan: s/p debridement wound care iv abx Code(s): [id number] - (2) Paraplegia, complete Code(s): G82.21 - PARAPLEGIA, COMPLETE (3) Pressure injury of left leg, stage 3 Assessment/Plan: requires frequent turnings Code(s): L89.893 - PRESSURE ULCER OF OTHER SITE, STAGE 3
[2020-04-16] MEDS: GABAPENTIN 300 MG CAPSULE PO SCH (21:18)
[2020-04-16] MEDS: BACLOFEN 10 MG TABLET (FP) PO SCH (21:18)
[2020-04-17] MEDS ORDERED: PIPERACILLIN/TAZOBACTAM 3.375 GM VIAL IVPB ONE ×3 (01:08→16:54)
[2020-04-17] MEDS ORDERED: DEXTROSE 5%-WATER - 50 ML IVPB ONE ×3 (01:08→16:55)
[2020-04-17] MEDS: PIPERACILLIN/TAZOB 3.375 GM 3.375 GM in DEXTROSE 5%-WATER - 50 ML IVPB SCH ×3 (01:21→17:16)
[2020-04-17] MEDS: AMINO ACIDS/PROTEIN HYDROLYS 30 ML LIQUID.PKT PO SCH ×2 (08:15→17:17)
[2020-04-17 08:33] LABS: BASO % 0.5 % (0-2.0); EOS % 3.4 % (0-4.5); HEMATOCRIT 33.5 % (35.4-49); HEMOGLOBIN 10.8 GM/dL (11.7-16.9); LYMPH % 23.4 % (8-40); MCH 29.6 pg (25.7-33.7); MCHC 32.3 g/dl (32.0-35.9); MEAN CELL VOLUME 91.4 fl (80-96); MONO % 6.9 % (3.8-10.2); NEUT % 65.8 % (42.8-82.8); PLATELET COUNT 311 K/MM3 (134-434); RBC 3.66 M/mm3 (4.00-5.60); RDW 13.7 % (11.9-15.9); WHITE BLOOD COUNT 6.6 K/mm3 (4.0-10.0)
[2020-04-17 09:00] LABS: ALBUMIN 2.7 g/dl (3.4-5.0); BILIRUBIN,TOTAL 0.5 mg/dL (0.2-1); BLOOD UREA NITROGEN 18.8 mg/dL (7-18); CALCIUM 9.1 mg/dL (8.5-10.1); CREATININE 0.5 mg/dL (0.55-1.3); POTASSIUM 4.4 mmol/L (3.5-5.1)
[2020-04-17] MEDS: LACTULOSE 20 GM/30 ML UDC (FOR ORAL USE ONLY) PO SCH ×2 (09:28→22:43)
[2020-04-17] MEDS: PANTOPRAZOLE 40 MG TABLET PO SCH (09:29)
[2020-04-17] MEDS: ZINC SULFATE 220 MG CAPSULE (FP) PO SCH (09:29)
[2020-04-17] MEDS: FERROUS SO4 325 MG TABLET (FP) PO SCH (09:29)
[2020-04-17] MEDS: ENOXAPARIN NA (PORCINE) 40 MG/0.4 ML DISP.SYRIN SQ SCH (09:29)
[2020-04-17] MEDS: MULTIVITAMINS THER W-MINERALS COMBO TABLET (FP) PO SCH (09:29)
[2020-04-17] MEDS: CHOLECALCIFEROL (VIT D3) 400 UNIT (10 MCG) TABLET PO SCH (09:29)
[2020-04-17] MEDS: ASCORBIC ACID 500 MG TABLET (FP) PO SCH (09:29)
[2020-04-17] MEDS: FOLIC ACID 1 MG TABLET (FP) PO SCH (09:29)
[2020-04-17] MEDS: CYANOCOBALAMIN 1,000 MCG TABLET (FP) PO SCH (12:04)
[2020-04-17] MEDS: PYRIDOXINE HCL (B-6) 50 MG TABLET (FP) PO SCH (12:04)
[2020-04-17] MEDS: LINEZOLID 600 MG TABLET (RESTRICTED TO ID) PO SCH ×2 (12:04→22:44)
--- NOTE | 2020-04-17 12:28 | PN ---
Progress Note, Physician History of Present Illness: stable no new issues surgery note noted - Current Medication List Current Medications: Active Medications Amino Acids (Prosource No Carb Liquid Pkt) 30 ml PO BID@0800,1730 [facility] Last Admin: 04/17/20 08:15 Dose: 30 ml Documented by: Ascorbic Acid (Vitamin C -) 500 mg PO DAILY [facility] Last Admin: 04/17/20 09:29 Dose: 500 mg Documented by: Baclofen (Lioresal -) 20 mg PO [facility] Last Admin: 04/16/20 21:18 Dose: 20 mg Documented by: Cholecalciferol (Vitamin D3 -) 400 unit PO DAILY [facility] Last Admin: 04/17/20 09:29 Dose: 400 unit Documented by: Cyanocobalamin (Vitamin B12 -) 1,000 mcg PO DAILY [facility] Last Admin: 04/17/20 12:04 Dose: 1,000 mcg Documented by: Enoxaparin Sodium (Lovenox -) 40 mg SQ DAILY [facility] Last Admin: 04/17/20 09:29 Dose: 40 mg Documented by: Ferrous Sulfate (Feosol -) 325 mg PO DAILY [facility] Last Admin: 04/17/20 09:29 Dose: 325 mg Documented by: Folic Acid (Folic Acid -) 1 mg PO DAILY [facility] Last Admin: 04/17/20 09:29 Dose: 1 mg Documented by: Gabapentin (Neurontin -) 600 mg PO [facility] Last Admin: 04/16/20 21:18 Dose: 600 mg Documented by: Piperacillin Sod/Tazobactam (Sod 3.375 gm/ Dextrose) 50 mls @ 100 mls/hr IVPB Q8H-IV [facility]; Protocol Last Admin: 04/17/20 09:29 Dose: 100 mls/hr Documented by: Lactulose (Cephulac (Oral Use)) 10 gm PO BID [facility] Last Admin: 04/17/20 09:28 Dose: 10 gm Documented by: Linezolid (Zyvox (Restricted To Id) -) 600 mg PO BID [facility] Last Admin: 04/17/20 12:04 Dose: 600 mg Documented by: Multivitamins/Minerals (Theragran-M) 1 each PO DAILY [facility] Last Admin: 04/17/20 09:29 Dose: 1 each Documented by: Ondansetron HCl (Zofran Injection) 4 mg IVPUSH Q6H PRN PRN Reason: NAUSEA AND/OR VOMITING Ondansetron HCl (Zofran Injection) 4 mg IVPUSH Q6H PRN PRN Reason: NAUSEA AND/OR VOMITING Pantoprazole Sodium (Protonix -) 40 mg PO DAILY [facility] Last Admin: 04/17/20 09:29 Dose: 40 mg Documented by: Pyridoxine HCl (Vitamin B6 -) 50 mg PO DAILY [facility] Last Admin: 04/17/20 12:04 Dose: 50 mg Documented by: Zinc Sulfate (Orazinc -) 220 mg PO DAILY [facility] Last Admin: 04/17/20 09:29 Dose: 220 mg Documented by: - Objective Vital Signs: Vital Signs Temperature 98.4 F 04/17/20 05:28 Pulse Rate 63 04/17/20 05:28 Respiratory Rate 18 04/17/20 05:28 Blood Pressure 82/49 L 04/17/20 05:28 O2 Sat by Pulse Oximetry (%) 98 04/17/20 08:35 Constitutional: Yes: No Distress, Calm Cardiovascular: Yes: S1, S2 Respiratory: Yes: Regular, CTA Bilaterally Gastrointestinal: Yes: Normal Bowel Sounds, Soft Musculoskeletal: Yes: WNL Extremities: Yes: WNL Neurological: Yes: Alert, Oriented Psychiatric: Yes: Alert, Oriented Labs: CBC, BMP 04/17/20 07:40 04/17/20 07:40 Assessment/Plan Problem List - Problems (1) Encounter for debridement of skin Code(s): [id number] - (2) Paraplegia, complete Code(s): G82.21 - PARAPLEGIA, COMPLETE (3) Pressure injury of left leg, stage 3 Assessment/Plan: requires frequent turnings Code(s): L89.893 - PRESSURE ULCER OF OTHER SITE, STAGE 3 sacral ulcers Assessment/Plan continue abx cx results noted
--- NOTE | 2020-04-17 14:03 | PN ---
Progress Note, Physician History of Present Illness: stable - Current Medication List Current Medications: Active Medications Amino Acids (Prosource No Carb Liquid Pkt) 30 ml PO BID@0800,1730 [facility] Last Admin: 04/17/20 08:15 Dose: 30 ml Documented by: Ascorbic Acid (Vitamin C -) 500 mg PO DAILY [facility] Last Admin: 04/17/20 09:29 Dose: 500 mg Documented by: Baclofen (Lioresal -) 20 mg PO [facility] Last Admin: 04/16/20 21:18 Dose: 20 mg Documented by: Cholecalciferol (Vitamin D3 -) 400 unit PO DAILY [facility] Last Admin: 04/17/20 09:29 Dose: 400 unit Documented by: Cyanocobalamin (Vitamin B12 -) 1,000 mcg PO DAILY [facility] Last Admin: 04/17/20 12:04 Dose: 1,000 mcg Documented by: Enoxaparin Sodium (Lovenox -) 40 mg SQ DAILY [facility] Last Admin: 04/17/20 09:29 Dose: 40 mg Documented by: Ferrous Sulfate (Feosol -) 325 mg PO DAILY [facility] Last Admin: 04/17/20 09:29 Dose: 325 mg Documented by: Folic Acid (Folic Acid -) 1 mg PO DAILY [facility] Last Admin: 04/17/20 09:29 Dose: 1 mg Documented by: Gabapentin (Neurontin -) 600 mg PO [facility] Last Admin: 04/16/20 21:18 Dose: 600 mg Documented by: Piperacillin Sod/Tazobactam (Sod 3.375 gm/ Dextrose) 50 mls @ 100 mls/hr IVPB Q8H-IV [facility]; Protocol Last Admin: 04/17/20 09:29 Dose: 100 mls/hr Documented by: Lactulose (Cephulac (Oral Use)) 10 gm PO BID [facility] Last Admin: 04/17/20 09:28 Dose: 10 gm Documented by: Linezolid (Zyvox (Restricted To Id) -) 600 mg PO BID [facility] Last Admin: 04/17/20 12:04 Dose: 600 mg Documented by: Multivitamins/Minerals (Theragran-M) 1 each PO DAILY [facility] Last Admin: 04/17/20 09:29 Dose: 1 each Documented by: Ondansetron HCl (Zofran Injection) 4 mg IVPUSH Q6H PRN PRN Reason: NAUSEA AND/OR VOMITING Ondansetron HCl (Zofran Injection) 4 mg IVPUSH Q6H PRN PRN Reason: NAUSEA AND/OR VOMITING Pantoprazole Sodium (Protonix -) 40 mg PO DAILY [facility] Last Admin: 04/17/20 09:29 Dose: 40 mg Documented by: Pyridoxine HCl (Vitamin B6 -) 50 mg PO DAILY [facility] Last Admin: 04/17/20 12:04 Dose: 50 mg Documented by: Zinc Sulfate (Orazinc -) 220 mg PO DAILY [facility] Last Admin: 04/17/20 09:29 Dose: 220 mg Documented by: - Objective Vital Signs: Vital Signs Temperature 98.4 F 04/17/20 05:28 Pulse Rate 63 04/17/20 05:28 Respiratory Rate 18 04/17/20 05:28 Blood Pressure 82/49 L 04/17/20 05:28 O2 Sat by Pulse Oximetry (%) 98 04/17/20 08:35 Constitutional: Yes: No Distress HENT: Yes: Atraumatic Neck: Yes: Supple Cardiovascular: Yes: Regular Rate and Rhythm Respiratory: Yes: Rhonchi Gastrointestinal: Yes: Normal Bowel Sounds Extremities: Yes: Other (llex in dressing) Neurological: Yes: Alert, Oriented Labs: CBC, BMP 04/17/20 07:40 04/17/20 07:40 Problem List - Problems (1) Encounter for debridement of skin Assessment/Plan: s/p debridement wound care iv abx Code(s): [id number] - (2) Paraplegia, complete Code(s): G82.21 - PARAPLEGIA, COMPLETE (3) Pressure injury of left leg, stage 3 Assessment/Plan: requires frequent turnings Code(s): L89.893 - PRESSURE ULCER OF OTHER SITE, STAGE 3 Assessment/Plan DC PLANNINGFOR WEDNESDAY D/W DR KELLY
[2020-04-17] MEDS ORDERED: PT OWN MED DRAWER 7, Y5N ONE (21:42)
[2020-04-17] MEDS: BACLOFEN 10 MG TABLET (FP) PO SCH (22:43)
[2020-04-17] MEDS: GABAPENTIN 300 MG CAPSULE PO SCH (22:44)
[2020-04-18] MEDS ORDERED: PIPERACILLIN/TAZOBACTAM 3.375 GM VIAL IVPB ONE ×4 (01:59→16:40)
[2020-04-18] MEDS ORDERED: DEXTROSE 5%-WATER - 50 ML IVPB ONE ×4 (01:59→16:41)
[2020-04-18] MEDS: PIPERACILLIN/TAZOB 3.375 GM 3.375 GM in DEXTROSE 5%-WATER - 50 ML IVPB SCH ×3 (02:13→17:20)
[2020-04-18] MEDS ORDERED: PT OWN MED DRAWER 7, Y5N ONE ×2 (09:47→21:12)
--- NOTE | 2020-04-18 10:47 | PN ---
Progress Note (short form) - Note Progress Note: PLASTIC SURGERY POD #8 Doing well. VAC changed on 04/17. Plan for change today however Dr. Arenas unable to come in. Spoke with her and she wants to keep VAC on one more day. Will be in tomorrow to evaluate wound and determine if he will need to cont VAC as out-patient therapy. If not, will need Fariha Boot to protect graft. Cont medical management DC planning to home. Above discussed with Dr. Arenas and agrees.
--- NOTE | 2020-04-18 11:17 | PN ---
Progress Note, Physician History of Present Illness: stable no new issues - Current Medication List Current Medications: Active Medications Amino Acids (Prosource No Carb Liquid Pkt) 30 ml PO BID@0800,1730 [facility] Last Admin: 04/17/20 17:17 Dose: 30 ml Documented by: Ascorbic Acid (Vitamin C -) 500 mg PO DAILY [facility] Last Admin: 04/17/20 09:29 Dose: 500 mg Documented by: Baclofen (Lioresal -) 20 mg PO [facility] Last Admin: 04/17/20 22:43 Dose: 20 mg Documented by: Cholecalciferol (Vitamin D3 -) 400 unit PO DAILY [facility] Last Admin: 04/17/20 09:29 Dose: 400 unit Documented by: Cyanocobalamin (Vitamin B12 -) 1,000 mcg PO DAILY [facility] Last Admin: 04/17/20 12:04 Dose: 1,000 mcg Documented by: Ferrous Sulfate (Feosol -) 325 mg PO DAILY [facility] Last Admin: 04/17/20 09:29 Dose: 325 mg Documented by: Folic Acid (Folic Acid -) 1 mg PO DAILY [facility] Last Admin: 04/17/20 09:29 Dose: 1 mg Documented by: Gabapentin (Neurontin -) 600 mg PO [facility] Last Admin: 04/17/20 22:44 Dose: 600 mg Documented by: Piperacillin Sod/Tazobactam (Sod 3.375 gm/ Dextrose) 50 mls @ 100 mls/hr IVPB Q8H-IV [facility]; Protocol Last Admin: 04/18/20 02:13 Dose: 100 mls/hr Documented by: Lactulose (Cephulac (Oral Use)) 10 gm PO BID [facility] Last Admin: 04/17/20 22:43 Dose: 10 gm Documented by: Linezolid (Zyvox (Restricted To Id) -) 600 mg PO BID [facility] Last Admin: 04/17/20 22:44 Dose: 600 mg Documented by: Multivitamins/Minerals (Theragran-M) 1 each PO DAILY [facility] Last Admin: 04/17/20 09:29 Dose: 1 each Documented by: Ondansetron HCl (Zofran Injection) 4 mg IVPUSH Q6H PRN PRN Reason: NAUSEA AND/OR VOMITING Ondansetron HCl (Zofran Injection) 4 mg IVPUSH Q6H PRN PRN Reason: NAUSEA AND/OR VOMITING Pantoprazole Sodium (Protonix -) 40 mg PO DAILY [facility] Last Admin: 04/17/20 09:29 Dose: 40 mg Documented by: Pyridoxine HCl (Vitamin B6 -) 50 mg PO DAILY [facility] Last Admin: 04/17/20 12:04 Dose: 50 mg Documented by: Zinc Sulfate (Orazinc -) 220 mg PO DAILY [facility] Last Admin: 04/17/20 09:29 Dose: 220 mg Documented by: - Objective Vital Signs: Vital Signs Temperature 98.6 F 04/18/20 05:39 Pulse Rate 58 L 04/18/20 05:39 Respiratory Rate 18 04/18/20 05:39 Blood Pressure 102/62 04/18/20 05:39 O2 Sat by Pulse Oximetry (%) 96 04/18/20 05:39 Constitutional: Yes: No Distress, Calm Cardiovascular: Yes: S1, S2 Respiratory: Yes: Regular, CTA Bilaterally Gastrointestinal: Yes: Normal Bowel Sounds, Soft Musculoskeletal: Yes: Other Extremities: Yes: Other Wound/Incision: Yes: Dressing Dry and Intact Neurological: Yes: Alert, Oriented Psychiatric: Yes: Alert, Oriented Labs: CBC, BMP 04/17/20 07:40 04/17/20 07:40 Assessment/Plan Problem List - Problems (1) Encounter for debridement of skin Code(s): [id number] - (2) Paraplegia, complete Code(s): G82.21 - PARAPLEGIA, COMPLETE (3) Pressure injury of left leg, stage 3 Assessment/Plan: requires frequent turnings Code(s): L89.893 - PRESSURE ULCER OF OTHER SITE, STAGE 3 sacral ulcers Assessment/Plan continue abx cx results noted
[2020-04-18] MEDS: FOLIC ACID 1 MG TABLET (FP) PO SCH (11:22)
[2020-04-18] MEDS: PANTOPRAZOLE 40 MG TABLET PO SCH (11:22)
[2020-04-18] MEDS: FERROUS SO4 325 MG TABLET (FP) PO SCH (11:22)
[2020-04-18] MEDS: AMINO ACIDS/PROTEIN HYDROLYS 30 ML LIQUID.PKT PO SCH ×2 (11:22→17:19)
[2020-04-18] MEDS: LACTULOSE 20 GM/30 ML UDC (FOR ORAL USE ONLY) PO SCH ×2 (11:22→21:16)
[2020-04-18] MEDS: MULTIVITAMINS THER W-MINERALS COMBO TABLET (FP) PO SCH (11:23)
[2020-04-18] MEDS: PYRIDOXINE HCL (B-6) 50 MG TABLET (FP) PO SCH (11:23)
[2020-04-18] MEDS: CYANOCOBALAMIN 1,000 MCG TABLET (FP) PO SCH (11:23)
[2020-04-18] MEDS: CHOLECALCIFEROL (VIT D3) 400 UNIT (10 MCG) TABLET PO SCH (11:23)
[2020-04-18] MEDS: ZINC SULFATE 220 MG CAPSULE (FP) PO SCH (11:23)
[2020-04-18] MEDS: ASCORBIC ACID 500 MG TABLET (FP) PO SCH (11:23)
[2020-04-18] MEDS: LINEZOLID 600 MG TABLET (RESTRICTED TO ID) PO SCH ×2 (11:24→21:17)
--- NOTE | 2020-04-18 15:08 | PN ---
Progress Note, Physician - Current Medication List Current Medications: Active Medications Amino Acids (Prosource No Carb Liquid Pkt) 30 ml PO BID@0800,1730 [facility] Last Admin: 04/18/20 11:22 Dose: 30 ml Documented by: Ascorbic Acid (Vitamin C -) 500 mg PO DAILY [facility] Last Admin: 04/18/20 11:23 Dose: 500 mg Documented by: Baclofen (Lioresal -) 20 mg PO [facility] Last Admin: 04/17/20 22:43 Dose: 20 mg Documented by: Cholecalciferol (Vitamin D3 -) 400 unit PO DAILY [facility] Last Admin: 04/18/20 11:23 Dose: 400 unit Documented by: Cyanocobalamin (Vitamin B12 -) 1,000 mcg PO DAILY [facility] Last Admin: 04/18/20 11:23 Dose: 1,000 mcg Documented by: Ferrous Sulfate (Feosol -) 325 mg PO DAILY [facility] Last Admin: 04/18/20 11:22 Dose: 325 mg Documented by: Folic Acid (Folic Acid -) 1 mg PO DAILY [facility] Last Admin: 04/18/20 11:22 Dose: 1 mg Documented by: Gabapentin (Neurontin -) 600 mg PO [facility] Last Admin: 04/17/20 22:44 Dose: 600 mg Documented by: Piperacillin Sod/Tazobactam (Sod 3.375 gm/ Dextrose) 50 mls @ 100 mls/hr IVPB Q8H-IV [facility]; Protocol Last Admin: 04/18/20 11:23 Dose: 100 mls/hr Documented by: Lactulose (Cephulac (Oral Use)) 10 gm PO BID [facility] Last Admin: 04/18/20 11:22 Dose: 10 gm Documented by: Linezolid (Zyvox (Restricted To Id) -) 600 mg PO BID [facility] Last Admin: 04/18/20 11:24 Dose: 600 mg Documented by: Multivitamins/Minerals (Theragran-M) 1 each PO DAILY [facility] Last Admin: 04/18/20 11:23 Dose: 1 each Documented by: Ondansetron HCl (Zofran Injection) 4 mg IVPUSH Q6H PRN PRN Reason: NAUSEA AND/OR VOMITING Ondansetron HCl (Zofran Injection) 4 mg IVPUSH Q6H PRN PRN Reason: NAUSEA AND/OR VOMITING Pantoprazole Sodium (Protonix -) 40 mg PO DAILY [facility] Last Admin: 04/18/20 11:22 Dose: 40 mg Documented by: Pyridoxine HCl (Vitamin B6 -) 50 mg PO DAILY [facility] Last Admin: 04/18/20 11:23 Dose: 50 mg Documented by: Zinc Sulfate (Orazinc -) 220 mg PO DAILY [facility] Last Admin: 04/18/20 11:23 Dose: 220 mg Documented by: - Objective Vital Signs: Vital Signs Temperature 98.5 F 04/18/20 14:00 Pulse Rate 68 04/18/20 14:00 Respiratory Rate 18 04/18/20 10:00 Blood Pressure 100/65 04/18/20 14:00 O2 Sat by Pulse Oximetry (%) 96 04/18/20 10:00 Constitutional: Yes: No Distress HENT: Yes: Atraumatic Neck: Yes: Supple Cardiovascular: Yes: Regular Rate and Rhythm Respiratory: Yes: CTA Bilaterally Gastrointestinal: Yes: Normal Bowel Sounds Extremities: Yes: Other (llex cellulitis) Neurological: Yes: Alert, Oriented Labs: CBC, BMP 04/17/20 07:40 04/17/20 07:40 Problem List - Problems (1) Encounter for debridement of skin Assessment/Plan: s/p debridement wound care iv abx d/w ID CAN GO HOME ON POP LEVAQUIN AND ZYVOX TOTAL OF 14 DAYZ Code(s): [id number] - (2) Paraplegia, complete Code(s): G82.21 - PARAPLEGIA, COMPLETE (3) Pressure injury of left leg, stage 3 Assessment/Plan: requires frequent turnings Code(s): L89.893 - PRESSURE ULCER OF OTHER SITE, STAGE 3
[2020-04-18] MEDS: BACLOFEN 10 MG TABLET (FP) PO SCH (21:16)
[2020-04-18] MEDS: GABAPENTIN 300 MG CAPSULE PO SCH (21:17)
[2020-04-19] MEDS ORDERED: PIPERACILLIN/TAZOBACTAM 3.375 GM VIAL IVPB ONE ×2 (01:57→08:44)
[2020-04-19] MEDS ORDERED: DEXTROSE 5%-WATER - 50 ML IVPB ONE (01:58)
[2020-04-19] MEDS: PIPERACILLIN/TAZOB 3.375 GM 3.375 GM in DEXTROSE 5%-WATER - 50 ML IVPB SCH ×3 (02:15→17:07)
[2020-04-19] MEDS ORDERED: PT OWN MED DRAWER 7, Y5N ONE ×2 (08:44→09:20)
[2020-04-19] MEDS: CHOLECALCIFEROL (VIT D3) 400 UNIT (10 MCG) TABLET PO SCH (09:18)
[2020-04-19] MEDS: AMINO ACIDS/PROTEIN HYDROLYS 30 ML LIQUID.PKT PO SCH ×2 (09:18→17:07)
[2020-04-19] MEDS: ASCORBIC ACID 500 MG TABLET (FP) PO SCH (09:18)
[2020-04-19] MEDS: ZINC SULFATE 220 MG CAPSULE (FP) PO SCH (09:19)
[2020-04-19] MEDS: PANTOPRAZOLE 40 MG TABLET PO SCH (09:19)
[2020-04-19] MEDS: MULTIVITAMINS THER W-MINERALS COMBO TABLET (FP) PO SCH (09:19)
[2020-04-19] MEDS: FOLIC ACID 1 MG TABLET (FP) PO SCH (09:19)
[2020-04-19] MEDS: FERROUS SO4 325 MG TABLET (FP) PO SCH (09:19)
[2020-04-19 09:21] LABS: ALBUMIN 2.8 g/dl (3.4-5.0); BILIRUBIN,TOTAL 0.4 mg/dL (0.2-1); BLOOD UREA NITROGEN 18.3 mg/dL (7-18); CALCIUM 8.8 mg/dL (8.5-10.1); CREATININE 0.6 mg/dL (0.55-1.3); POTASSIUM 4.2 mmol/L (3.5-5.1); TOT PROT 7.1 g/dl (6.4-8.2)
[2020-04-19] MEDS: LACTULOSE 20 GM/30 ML UDC (FOR ORAL USE ONLY) PO SCH (09:21)
[2020-04-19] MEDS: PYRIDOXINE HCL (B-6) 50 MG TABLET (FP) PO SCH (09:22)
[2020-04-19 09:23] LABS: BASO % 0.5 % (0-2.0); EOS % 2.5 % (0-4.5); HEMATOCRIT 34.4 % (35.4-49); HEMOGLOBIN 11.1 GM/dL (11.7-16.9); LYMPH % 20.5 % (8-40); MCH 29.9 pg (25.7-33.7); MCHC 32.3 g/dl (32.0-35.9); MEAN CELL VOLUME 92.5 fl (80-96); MONO % 4.4 % (3.8-10.2); NEUT % 72.1 % (42.8-82.8); PLATELET COUNT 307 K/MM3 (134-434); RBC 3.72 M/mm3 (4.00-5.60); RDW 14.1 % (11.9-15.9); WHITE BLOOD COUNT 6.6 K/mm3 (4.0-10.0)
[2020-04-19] MEDS: CYANOCOBALAMIN 1,000 MCG TABLET (FP) PO SCH (09:23)
[2020-04-19] MEDS: LINEZOLID 600 MG TABLET (RESTRICTED TO ID) PO SCH (09:23)
[2020-04-19 10:24] VITALS: BP 113/66; PULSE 60; TEMP 97
--- NOTE | 2020-04-19 12:01 | PN ---
Progress Note, Physician History of Present Illness: stable no issues - Current Medication List Current Medications: Active Medications Amino Acids (Prosource No Carb Liquid Pkt) 30 ml PO BID@0800,1730 [facility] Last Admin: 04/19/20 09:18 Dose: 30 ml Documented by: Ascorbic Acid (Vitamin C -) 500 mg PO DAILY [facility] Last Admin: 04/19/20 09:18 Dose: 500 mg Documented by: Baclofen (Lioresal -) 20 mg PO [facility] Last Admin: 04/18/20 21:16 Dose: 20 mg Documented by: Cholecalciferol (Vitamin D3 -) 400 unit PO DAILY [facility] Last Admin: 04/19/20 09:18 Dose: 400 unit Documented by: Cyanocobalamin (Vitamin B12 -) 1,000 mcg PO DAILY [facility] Last Admin: 04/19/20 09:23 Dose: 1,000 mcg Documented by: Ferrous Sulfate (Feosol -) 325 mg PO DAILY [facility] Last Admin: 04/19/20 09:19 Dose: 325 mg Documented by: Folic Acid (Folic Acid -) 1 mg PO DAILY [facility] Last Admin: 04/19/20 09:19 Dose: 1 mg Documented by: Gabapentin (Neurontin -) 600 mg PO [facility] Last Admin: 04/18/20 21:17 Dose: 600 mg Documented by: Piperacillin Sod/Tazobactam (Sod 3.375 gm/ Dextrose) 50 mls @ 100 mls/hr IVPB Q8H-IV [facility]; Protocol Last Admin: 04/19/20 09:23 Dose: 100 mls/hr Documented by: Lactulose (Cephulac (Oral Use)) 10 gm PO BID [facility] Last Admin: 04/19/20 09:21 Dose: 10 gm Documented by: Linezolid (Zyvox (Restricted To Id) -) 600 mg PO BID [facility] Last Admin: 04/19/20 09:23 Dose: 600 mg Documented by: Multivitamins/Minerals (Theragran-M) 1 each PO DAILY [facility] Last Admin: 04/19/20 09:19 Dose: 1 each Documented by: Ondansetron HCl (Zofran Injection) 4 mg IVPUSH Q6H PRN PRN Reason: NAUSEA AND/OR VOMITING Ondansetron HCl (Zofran Injection) 4 mg IVPUSH Q6H PRN PRN Reason: NAUSEA AND/OR VOMITING Pantoprazole Sodium (Protonix -) 40 mg PO DAILY [facility] Last Admin: 04/19/20 09:19 Dose: 40 mg Documented by: Pyridoxine HCl (Vitamin B6 -) 50 mg PO DAILY [facility] Last Admin: 04/19/20 09:22 Dose: 50 mg Documented by: Zinc Sulfate (Orazinc -) 220 mg PO DAILY [facility] Last Admin: 04/19/20 09:19 Dose: 220 mg Documented by: - Objective Vital Signs: Vital Signs Temperature 97 F L 04/19/20 10:00 Pulse Rate 60 04/19/20 10:00 Respiratory Rate 18 04/19/20 10:00 Blood Pressure 113/66 04/19/20 10:00 O2 Sat by Pulse Oximetry (%) 99 04/19/20 10:00 Constitutional: Yes: No Distress, Calm Cardiovascular: Yes: S1, S2 Respiratory: Yes: Regular, CTA Bilaterally Gastrointestinal: Yes: Normal Bowel Sounds, Soft Musculoskeletal: Yes: WNL Extremities: Yes: WNL Neurological: Yes: Alert, Oriented Psychiatric: Yes: Alert, Oriented Labs: CBC, BMP 04/19/20 08:20 04/19/20 08:20 Assessment/Plan Problem List - Problems (1) Encounter for debridement of skin Code(s): ULP5292 - (2) Paraplegia, complete Code(s): G82.21 - PARAPLEGIA, COMPLETE (3) Pressure injury of left leg, stage 3 Assessment/Plan: requires frequent turnings Code(s): L89.893 - PRESSURE ULCER OF OTHER SITE, STAGE 3 sacral ulcers Assessment/Plan continue abx cx results noted on discharge patient can be send on zyox for another 10 days
--- NOTE | 2020-04-19 13:07 | PN ---
Progress Note, Physician Chief Complaint: Post Op Skin Grafting L Leg - Current Medication List Current Medications: Active Medications Amino Acids (Prosource No Carb Liquid Pkt) 30 ml PO BID@0800,1730 [facility] Last Admin: 04/19/20 09:18 Dose: 30 ml Documented by: Ascorbic Acid (Vitamin C -) 500 mg PO DAILY [facility] Last Admin: 04/19/20 09:18 Dose: 500 mg Documented by: Baclofen (Lioresal -) 20 mg PO [facility] Last Admin: 04/18/20 21:16 Dose: 20 mg Documented by: Cholecalciferol (Vitamin D3 -) 400 unit PO DAILY [facility] Last Admin: 04/19/20 09:18 Dose: 400 unit Documented by: Cyanocobalamin (Vitamin B12 -) 1,000 mcg PO DAILY [facility] Last Admin: 04/19/20 09:23 Dose: 1,000 mcg Documented by: Ferrous Sulfate (Feosol -) 325 mg PO DAILY [facility] Last Admin: 04/19/20 09:19 Dose: 325 mg Documented by: Folic Acid (Folic Acid -) 1 mg PO DAILY [facility] Last Admin: 04/19/20 09:19 Dose: 1 mg Documented by: Gabapentin (Neurontin -) 600 mg PO [facility] Last Admin: 04/18/20 21:17 Dose: 600 mg Documented by: Piperacillin Sod/Tazobactam (Sod 3.375 gm/ Dextrose) 50 mls @ 100 mls/hr IVPB Q8H-IV [facility]; Protocol Last Admin: 04/19/20 09:23 Dose: 100 mls/hr Documented by: Lactulose (Cephulac (Oral Use)) 10 gm PO BID [facility] Last Admin: 04/19/20 09:21 Dose: 10 gm Documented by: Linezolid (Zyvox (Restricted To Id) -) 600 mg PO BID [facility] Last Admin: 04/19/20 09:23 Dose: 600 mg Documented by: Multivitamins/Minerals (Theragran-M) 1 each PO DAILY [facility] Last Admin: 04/19/20 09:19 Dose: 1 each Documented by: Ondansetron HCl (Zofran Injection) 4 mg IVPUSH Q6H PRN PRN Reason: NAUSEA AND/OR VOMITING Ondansetron HCl (Zofran Injection) 4 mg IVPUSH Q6H PRN PRN Reason: NAUSEA AND/OR VOMITING Pantoprazole Sodium (Protonix -) 40 mg PO DAILY [facility] Last Admin: 04/19/20 09:19 Dose: 40 mg Documented by: Pyridoxine HCl (Vitamin B6 -) 50 mg PO DAILY [facility] Last Admin: 04/19/20 09:22 Dose: 50 mg Documented by: Zinc Sulfate (Orazinc -) 220 mg PO DAILY [facility] Last Admin: 04/19/20 09:19 Dose: 220 mg Documented by: - Objective Vital Signs: Vital Signs Temperature 97 F L 04/19/20 10:00 Pulse Rate 60 04/19/20 10:00 Respiratory Rate 18 04/19/20 10:00 Blood Pressure 113/66 04/19/20 10:00 O2 Sat by Pulse Oximetry (%) 99 04/19/20 10:00 Labs: CBC, BMP 04/19/20 08:20 04/19/20 08:20 Assessment/Plan Post Op Skin Grafting Left Calf Dressing changed with Iza RANGEL Graft [place] adherent , no discharge,,no smell All mariel removed VAC D?C Xeroform gauze applied with 4x4 . Kurlex and Coban compression Plan : D/C to home with Home Care, Aide needed for patient care FU : Wound clinic on Wednesday Keep all dressings dry Donot change dressing unless problem ,call Dr Arenas Donor site located posterior L Calf Cephalic /12 oclock position ducate patient to avoid dragging L leg on bed, Do not hang leg down from bed keep it flat, change position carefully avoid Friction back of leg
--- NOTE | 2020-04-19 14:23 | DS ---
Physical Examination Vital Signs: Vital Signs Temperature 97 F L 04/19/20 10:00 Pulse Rate 60 04/19/20 10:00 Respiratory Rate 18 04/19/20 10:00 Blood Pressure 113/66 04/19/20 10:00 O2 Sat by Pulse Oximetry (%) 99 04/19/20 10:00 Constitutional: Yes: No Distress HENT: Yes: Atraumatic Neck: Yes: Supple Cardiovascular: Yes: Regular Rate and Rhythm Respiratory: Yes: CTA Bilaterally Gastrointestinal: Yes: Normal Bowel Sounds Extremities: Yes: Other (llex in dressing) Neurological: Yes: Alert, Oriented Labs: CBC, BMP 04/19/20 08:20 04/19/20 08:20 Discharge Summary Problems reviewed: Yes Reason For Visit: PRESSURE ULCER OF OTHER SITE, STAGE 4 Current Active Problems Constipation (Acute) - Instructions Diet, Activity, Other Instructions: FOLLOW UP AT WOUND CARE WITH DR KELLY NEXT WEEK WEDNESDAY Referrals: Palomo Zapata MD [Staff Physician] - - Home Medications Comprehensive Discharge Medication List: Ambulatory Orders Baclofen 20 mg PO HS 04/08/16 Gabapentin [Neurontin] 600 mg PO HS 04/08/16 Ascorbate Calcium [Vitamin C] 500 mg PO DAILY 08/20/16 Cholecalciferol (Vitamin D3) [Vitamin D -] 400 unit PO DAILY 08/20/16 Cranberry 500 mg PO DAILY 08/20/16 Vitamin E 1,000 unit PO DAILY 08/20/16 Cyanocobalamin [Vitamin B12 -] 1,000 mcg PO DAILY tablet 09/04/16 Ferrous Sulfate [Feosol] 325 mg PO DAILY [facility] 09/04/16 Lactulose (Oral Use) [Cephulac -] 10 gm PO BID [facility] 09/04/16 Magnesium Hydrox 2400MG/30Ml [Milk of Magnesia -] 30 ml PO Q8H PRN #0 cup 09/04/16 Pyridoxine HCl (B-6) [Vitamin B6 -] 50 mg PO DAILY tablet 09/04/16 Folic Acid 1 mg PO DAILY 01/12/20 Pantoprazole Sodium [Protonix] 40 mg PO DAILY 01/12/20 Zinc 50 mg PO DAILY 01/12/20 Multivitamin/Iron/Folic Acid [Centrum Adults Tablet] 1 each PO DAILY 04/09/20 Levofloxacin [Levaquin] 500 mg PO DAILY #5 tablet 04/18/20 Linezolid [Zyvox (Restricted To Id) -] 600 mg PO BID #10 tablet 04/18/20 [facility]
== END 2020-04-19 17:28 | disposition home or self-care (01) | DRG 574 ==
LOC: JASU-SURG 04:54 → J2C 15:35 → J6WEST-2 20:40 → J6S 04-11 13:48
PROVIDERS: ADMIT Plastic Surgery; ATTEND Internal Medicine
PROC: 0HRLX74 Replacement of Left Lower Leg Skin with Autologous Tissue Substitute, Partial Thickness, External Approach (ICD-10-PCS; 2020-04-10)
PROC: 0HBLXZZ Excision of Left Lower Leg Skin, External Approach (ICD-10-PCS; 2020-04-10)
PROC: 2W1RX6Z Compression of Left Lower Leg using Pressure Dressing (ICD-10-PCS; 2020-04-10)
PROC: 0KBT0ZZ Excision of Left Lower Leg Muscle, Open Approach (ICD-10-PCS; principal; 2020-04-10 14:00)
PROC: 2W1RX6Z Compression of Left Lower Leg using Pressure Dressing (ICD-10-PCS; 2020-04-12)
PROC: 2W1RX6Z Compression of Left Lower Leg using Pressure Dressing (ICD-10-PCS; 2020-04-16)
DX: L89.893 Pressure ulcer of other site, stage 3 (principal); G82.21 Paraplegia, complete; I10 Essential (primary) hypertension; G62.9 Polyneuropathy, unspecified; D64.9 Anemia, unspecified; N20.0 Calculus of kidney; K59.00 Constipation, unspecified; Z87.11 Personal history of peptic ulcer disease
CPT/HCPCS: 36415; 80053; 85025; 87070; 87186; 87205; 88304-TC; 94760; J0475

== ENCOUNTER 2020-06-17 14:15 | Inpatient (IN) | payer OTHER, BC ==
[2020-06-17 16:10] LABS: BASO % 0.5 % (0-2.0); EOS % 3.6 % (0-4.5); HEMATOCRIT 26.8 % (35.4-49); HEMOGLOBIN 8.6 GM/dL (11.7-16.9); MCHC 32.3 g/dl (32.0-35.9); MEAN CELL VOLUME 89.9 fl (80-96); MEAN PLT VOLUME 7.5 fl (7.5-11.1); MONO % 5.3 % (3.8-10.2); NEUT % 79.6 % (42.8-82.8); PLATELET COUNT 444 K/MM3 (134-434); RBC 2.98 M/mm3 (4.00-5.60); RDW 15.9 % (11.9-15.9); WHITE BLOOD COUNT 8.9 K/mm3 (4.0-10.0)
[2020-06-17 16:14] LABS: INR 1.09 (0.83-1.09); PROTHROMBIN TIME (PATIENT) 13.1 SEC (9.7-13.0)
[2020-06-17 16:17] LABS: ACTIVATED PTT 34.3 SECONDS (25.2-36.5)
[2020-06-17 16:29] LABS: CALCIUM 8.8 mg/dL (8.5-10.1); POTASSIUM 3.8 mmol/L (3.5-5.1)
[2020-06-17 16:30] LABS: ALBUMIN 2.2 g/dl (3.4-5.0); BLOOD UREA NITROGEN 8.6 mg/dL (7-18); MAGNESIUM 2.4 mg/dL (1.8-2.4)
[2020-06-17 16:33] LABS: CREATININE 0.4 mg/dL (0.55-1.3)
[2020-06-17 16:35] LABS: BILIRUBIN,TOTAL 0.2 mg/dL (0.2-1); TOT PROT 6.6 g/dl (6.4-8.2)
[2020-06-17] MEDS ORDERED: ACETAMINOPHEN 325 MG TABLET (FP) PO PRN (17:28)
[2020-06-17] MEDS ORDERED: PIPERACILLIN/TAZOB 3.375 GM 3.375 GM/50 ML BAG IVPB ONE (17:40)
[2020-06-17] MEDS ORDERED: PIPERACILLIN/TAZOB 3.375 GM 3.375 GM in DEXTROSE 5%-WATER - 50 ML IVPB SCH (18:00)
[2020-06-17] MEDS: PIPERACILLIN/TAZOB 3.375 GM 3.375 GM in DEXTROSE 5%-WATER - 50 ML IVPB SCH (18:01)
[2020-06-17] MEDS: LACTULOSE 20 GM/30 ML UDC (FOR ORAL USE ONLY) PO SCH (22:28)
[2020-06-17] MEDS: BACLOFEN 10 MG TABLET (FP) PO SCH (22:29)
[2020-06-17] MEDS: GABAPENTIN 300 MG CAPSULE PO SCH (22:29)
[2020-06-18] MEDS ORDERED: PIPERACILLIN/TAZOBACTAM 3.375 GM VIAL IVPB ONE ×3 (01:21→16:27)
[2020-06-18] MEDS ORDERED: DEXTROSE 5%-WATER - 50 ML IVPB ONE ×3 (01:21→16:28)
[2020-06-18] MEDS: PIPERACILLIN/TAZOB 3.375 GM 3.375 GM in DEXTROSE 5%-WATER - 50 ML IVPB SCH ×3 (02:13→17:35)
[2020-06-18 04:46] VITALS: BMI 25.2
[2020-06-18 08:24] LABS: BASO % 0.8 % (0-2.0); HEMOGLOBIN 8.4 GM/dL (11.7-16.9); MCH 29.1 pg (25.7-33.7); MCHC 32.2 g/dl (32.0-35.9); MEAN CELL VOLUME 90.5 fl (80-96); MEAN PLT VOLUME 8.3 fl (7.5-11.1); MONO % 6.1 % (3.8-10.2); NEUT % 65.1 % (42.8-82.8); PLATELET COUNT 411 K/MM3 (134-434); POTASSIUM 3.7 mmol/L (3.5-5.1); RBC 2.87 M/mm3 (4.00-5.60); RDW 15.5 % (11.9-15.9); WHITE BLOOD COUNT 6.1 K/mm3 (4.0-10.0)
[2020-06-18 08:35] LABS: CALCIUM 8.5 mg/dL (8.5-10.1); MAGNESIUM 2.4 mg/dL (1.8-2.4)
[2020-06-18 08:38] LABS: CREATININE 0.3 mg/dL (0.55-1.3); PHOSPHOROUS 3.1 mg/dL (2.5-4.9)
[2020-06-18 08:39] LABS: BILIRUBIN,TOTAL 0.4 mg/dL (0.2-1); TOT PROT 6.2 g/dl (6.4-8.2)
[2020-06-18] MEDS ORDERED: PT OWN MED DRAWER 7, Y5N ONE ×2 (08:59→20:51)
[2020-06-18] MEDS: CYANOCOBALAMIN 1,000 MCG TABLET (FP) PO SCH (10:13)
[2020-06-18] MEDS: ENOXAPARIN NA (PORCINE) 40 MG/0.4 ML DISP.SYRIN SQ SCH (10:13)
[2020-06-18] MEDS: ZINC SULFATE 220 MG CAPSULE (FP) PO SCH (10:13)
[2020-06-18] MEDS: FERROUS SO4 325 MG TABLET (FP) PO SCH (10:13)
[2020-06-18] MEDS: ASCORBIC ACID 500 MG TABLET (FP) PO SCH (10:13)
[2020-06-18] MEDS: PANTOPRAZOLE 40 MG TABLET PO SCH (10:13)
[2020-06-18] MEDS: MULTIVITAMINS THER W-MINERALS COMBO TABLET (FP) PO SCH (10:13)
[2020-06-18] MEDS: CHOLECALCIFEROL (VIT D3) 400 UNIT (10 MCG) TABLET PO SCH (10:13)
[2020-06-18] MEDS: FOLIC ACID 1 MG TABLET (FP) PO SCH (10:14)
[2020-06-18] MEDS: LACTULOSE 20 GM/30 ML UDC (FOR ORAL USE ONLY) PO SCH ×2 (10:14→22:03)
[2020-06-18] MEDS: MAGNESIUM HYDROX 2400MG/30ML ORAL SUSPENSION 30 ML CUP PO PRN (10:23)
[2020-06-18] MEDS: PYRIDOXINE HCL (B-6) 50 MG TABLET (FP) PO SCH (13:51)
[2020-06-18] MEDS: DOCUSATE SODIUM 100 MG CAPSULE (FP) PO SCH ×3 (13:52→22:04)
[2020-06-18] MEDS: NYSTATIN POWDER 100,000 UNITS/GM - 15 GM TOPICAL POWDER TP SCH ×2 (17:36→22:05)
[2020-06-18] MEDS: GABAPENTIN 300 MG CAPSULE PO SCH (22:04)
[2020-06-18] MEDS: BACLOFEN 10 MG TABLET (FP) PO SCH (22:04)
[2020-06-19] MEDS ORDERED: PIPERACILLIN/TAZOBACTAM 3.375 GM VIAL IVPB ONE ×3 (01:11→17:02)
[2020-06-19] MEDS ORDERED: DEXTROSE 5%-WATER - 50 ML IVPB ONE ×3 (01:11→17:02)
[2020-06-19] MEDS: PIPERACILLIN/TAZOB 3.375 GM 3.375 GM in DEXTROSE 5%-WATER - 50 ML IVPB SCH ×3 (01:33→17:18)
[2020-06-19] MEDS: NYSTATIN POWDER 100,000 UNITS/GM - 15 GM TOPICAL POWDER TP SCH ×3 (06:25→22:53)
[2020-06-19] MEDS: DOCUSATE SODIUM 100 MG CAPSULE (FP) PO SCH ×4 (06:25→22:52)
[2020-06-19 07:42] LABS: BASO % 0.6 % (0-2.0); EOS % 9.8 % (0-4.5); HEMATOCRIT 29.4 % (35.4-49); HEMOGLOBIN 9.5 GM/dL (11.7-16.9); LYMPH % 22.8 % (8-40); MCH 29.2 pg (25.7-33.7); MCHC 32.3 g/dl (32.0-35.9); MEAN CELL VOLUME 90.5 fl (80-96); MEAN PLT VOLUME 7.7 fl (7.5-11.1); MONO % 7.1 % (3.8-10.2); NEUT % 59.7 % (42.8-82.8); PLATELET COUNT 475 K/MM3 (134-434); RBC 3.25 M/mm3 (4.00-5.60); RDW 16.1 % (11.9-15.9); WHITE BLOOD COUNT 6.4 K/mm3 (4.0-10.0)
[2020-06-19 07:46] LABS: INR 1.01 (0.83-1.09); PROTHROMBIN TIME (PATIENT) 12.4 SEC (9.7-13.0)
[2020-06-19 08:01] LABS: POTASSIUM 4.4 mmol/L (3.5-5.1)
[2020-06-19 08:07] LABS: ALBUMIN 2.2 g/dl (3.4-5.0); BLOOD UREA NITROGEN 8.4 mg/dL (7-18); CALCIUM 9.1 mg/dL (8.5-10.1); MAGNESIUM 2.5 mg/dL (1.8-2.4)
[2020-06-19 08:10] LABS: CREATININE 0.4 mg/dL (0.55-1.3)
[2020-06-19 08:12] LABS: BILIRUBIN,TOTAL 0.2 mg/dL (0.2-1); TOT PROT 6.9 g/dl (6.4-8.2)
[2020-06-19] MEDS: FERROUS SO4 325 MG TABLET (FP) PO SCH (11:26)
[2020-06-19] MEDS: FOLIC ACID 1 MG TABLET (FP) PO SCH (11:26)
[2020-06-19] MEDS: PANTOPRAZOLE 40 MG TABLET PO SCH (11:26)
[2020-06-19] MEDS: ZINC SULFATE 220 MG CAPSULE (FP) PO SCH (11:26)
[2020-06-19] MEDS: LACTULOSE 20 GM/30 ML UDC (FOR ORAL USE ONLY) PO SCH ×2 (11:26→22:51)
[2020-06-19] MEDS: ENOXAPARIN NA (PORCINE) 40 MG/0.4 ML DISP.SYRIN SQ SCH (11:26)
[2020-06-19] MEDS: CYANOCOBALAMIN 1,000 MCG TABLET (FP) PO SCH (11:27)
[2020-06-19] MEDS: MULTIVITAMINS THER W-MINERALS COMBO TABLET (FP) PO SCH (11:27)
[2020-06-19] MEDS: PYRIDOXINE HCL (B-6) 50 MG TABLET (FP) PO SCH (11:27)
[2020-06-19] MEDS: CHOLECALCIFEROL (VIT D3) 400 UNIT (10 MCG) TABLET PO SCH (11:27)
[2020-06-19] MEDS: ASCORBIC ACID 500 MG TABLET (FP) PO SCH (11:27)
[2020-06-19] MEDS: BACLOFEN 10 MG TABLET (FP) PO SCH (22:51)
[2020-06-19] MEDS: GABAPENTIN 300 MG CAPSULE PO SCH (22:52)
[2020-06-20] MEDS ORDERED: PIPERACILLIN/TAZOBACTAM 3.375 GM VIAL IVPB ONE ×3 (01:59→17:21)
[2020-06-20] MEDS ORDERED: DEXTROSE 5%-WATER - 50 ML IVPB ONE ×3 (01:59→17:22)
[2020-06-20] MEDS: PIPERACILLIN/TAZOB 3.375 GM 3.375 GM in DEXTROSE 5%-WATER - 50 ML IVPB SCH ×3 (02:19→17:34)
[2020-06-20] MEDS: DOCUSATE SODIUM 100 MG CAPSULE (FP) PO SCH ×3 (06:21→22:33)
[2020-06-20] MEDS: NYSTATIN POWDER 100,000 UNITS/GM - 15 GM TOPICAL POWDER TP SCH ×3 (06:22→22:34)
[2020-06-20 06:41] LABS: BASO % 0.6 % (0-2.0); EOS % 7.4 % (0-4.5); HEMATOCRIT 27.4 % (35.4-49); HEMOGLOBIN 8.7 GM/dL (11.7-16.9); LYMPH % 18.4 % (8-40); MCH 28.5 pg (25.7-33.7); MCHC 31.6 g/dl (32.0-35.9); MEAN CELL VOLUME 90.3 fl (80-96); MONO % 5.9 % (3.8-10.2); NEUT % 67.7 % (42.8-82.8); PLATELET COUNT 438 K/MM3 (134-434); RBC 3.04 M/mm3 (4.00-5.60); WHITE BLOOD COUNT 6.9 K/mm3 (4.0-10.0)
[2020-06-20 07:10] LABS: POTASSIUM 4.3 mmol/L (3.5-5.1)
[2020-06-20 07:29] LABS: BLOOD UREA NITROGEN 9.6 mg/dL (7-18)
[2020-06-20 07:30] LABS: CALCIUM 8.8 mg/dL (8.5-10.1); CREATININE 0.4 mg/dL (0.55-1.3); MAGNESIUM 2.3 mg/dL (1.8-2.4)
[2020-06-20 07:32] LABS: BILIRUBIN,TOTAL 0.6 mg/dL (0.2-1); TOT PROT 6.4 g/dl (6.4-8.2)
[2020-06-20] MEDS ORDERED: PT OWN MED DRAWER 7, Y5N ONE ×2 (10:19→22:08)
[2020-06-20] MEDS: FERROUS SO4 325 MG TABLET (FP) PO SCH (10:22)
[2020-06-20] MEDS: ASCORBIC ACID 500 MG TABLET (FP) PO SCH (10:22)
[2020-06-20] MEDS: MULTIVITAMINS THER W-MINERALS COMBO TABLET (FP) PO SCH (10:22)
[2020-06-20] MEDS: ZINC SULFATE 220 MG CAPSULE (FP) PO SCH (10:22)
[2020-06-20] MEDS: CYANOCOBALAMIN 1,000 MCG TABLET (FP) PO SCH (10:22)
[2020-06-20] MEDS: PANTOPRAZOLE 40 MG TABLET PO SCH (10:23)
[2020-06-20] MEDS: FOLIC ACID 1 MG TABLET (FP) PO SCH (10:23)
[2020-06-20] MEDS: CHOLECALCIFEROL (VIT D3) 400 UNIT (10 MCG) TABLET PO SCH (10:23)
[2020-06-20] MEDS: PYRIDOXINE HCL (B-6) 50 MG TABLET (FP) PO SCH (10:23)
[2020-06-20] MEDS: ENOXAPARIN NA (PORCINE) 40 MG/0.4 ML DISP.SYRIN SQ SCH (10:24)
[2020-06-20] MEDS: LACTULOSE 20 GM/30 ML UDC (FOR ORAL USE ONLY) PO SCH ×2 (10:26→22:32)
[2020-06-20] MEDS: AMINO ACIDS/PROTEIN HYDROLYS 30 ML LIQUID.PKT PO SCH (17:34)
[2020-06-20] MEDS: BACLOFEN 10 MG TABLET (FP) PO SCH (22:33)
[2020-06-20] MEDS: GABAPENTIN 300 MG CAPSULE PO SCH (22:33)
[2020-06-21] MEDS ORDERED: DEXTROSE 5%-WATER - 50 ML IVPB ONE ×3 (01:52→17:02)
[2020-06-21] MEDS ORDERED: PIPERACILLIN/TAZOBACTAM 3.375 GM VIAL IVPB ONE ×3 (01:52→17:02)
[2020-06-21] MEDS: PIPERACILLIN/TAZOB 3.375 GM 3.375 GM in DEXTROSE 5%-WATER - 50 ML IVPB SCH ×3 (02:26→17:06)
[2020-06-21] MEDS: NYSTATIN POWDER 100,000 UNITS/GM - 15 GM TOPICAL POWDER TP SCH ×3 (06:17→21:59)
[2020-06-21] MEDS: DOCUSATE SODIUM 100 MG CAPSULE (FP) PO SCH ×3 (06:17→21:58)
[2020-06-21 08:15] LABS: BASO % 0.6 % (0-2.0); EOS % 6.5 % (0-4.5); HEMATOCRIT 28.4 % (35.4-49); HEMOGLOBIN 9.2 GM/dL (11.7-16.9); LYMPH % 19.5 % (8-40); MCH 29.2 pg (25.7-33.7); MCHC 32.3 g/dl (32.0-35.9); MEAN CELL VOLUME 90.3 fl (80-96); MEAN PLT VOLUME 7.4 fl (7.5-11.1); MONO % 5.6 % (3.8-10.2); NEUT % 67.8 % (42.8-82.8); PLATELET COUNT 458 K/MM3 (134-434); RBC 3.14 M/mm3 (4.00-5.60); RDW 15.7 % (11.9-15.9); WHITE BLOOD COUNT 7.1 K/mm3 (4.0-10.0)
[2020-06-21 08:21] LABS: POTASSIUM 4.1 mmol/L (3.5-5.1)
[2020-06-21 08:24] LABS: ALBUMIN 2.3 g/dl (3.4-5.0); BLOOD UREA NITROGEN 9.2 mg/dL (7-18); CALCIUM 8.9 mg/dL (8.5-10.1); MAGNESIUM 2.3 mg/dL (1.8-2.4)
[2020-06-21 08:27] LABS: CREATININE 0.5 mg/dL (0.55-1.3)
[2020-06-21 08:29] LABS: BILIRUBIN,TOTAL 0.2 mg/dL (0.2-1)
[2020-06-21] MEDS: LACTULOSE 20 GM/30 ML UDC (FOR ORAL USE ONLY) PO SCH ×2 (09:31→21:58)
[2020-06-21] MEDS: ZINC SULFATE 220 MG CAPSULE (FP) PO SCH (09:32)
[2020-06-21] MEDS: MULTIVITAMINS THER W-MINERALS COMBO TABLET (FP) PO SCH (09:32)
[2020-06-21] MEDS: ASCORBIC ACID 500 MG TABLET (FP) PO SCH (09:32)
[2020-06-21] MEDS: CYANOCOBALAMIN 1,000 MCG TABLET (FP) PO SCH (09:33)
[2020-06-21] MEDS: ENOXAPARIN NA (PORCINE) 40 MG/0.4 ML DISP.SYRIN SQ SCH (09:33)
[2020-06-21] MEDS: AMINO ACIDS/PROTEIN HYDROLYS 30 ML LIQUID.PKT PO SCH ×2 (09:33→17:06)
[2020-06-21] MEDS: FOLIC ACID 1 MG TABLET (FP) PO SCH (09:33)
[2020-06-21] MEDS: FERROUS SO4 325 MG TABLET (FP) PO SCH (09:33)
[2020-06-21] MEDS: CHOLECALCIFEROL (VIT D3) 400 UNIT (10 MCG) TABLET PO SCH (09:33)
[2020-06-21] MEDS: PANTOPRAZOLE 40 MG TABLET PO SCH (09:34)
[2020-06-21] MEDS: PYRIDOXINE HCL (B-6) 50 MG TABLET (FP) PO SCH (10:19)
[2020-06-21] MEDS: BACLOFEN 10 MG TABLET (FP) PO SCH (21:58)
[2020-06-21] MEDS: GABAPENTIN 300 MG CAPSULE PO SCH (21:59)
[2020-06-22] MEDS ORDERED: PIPERACILLIN/TAZOBACTAM 3.375 GM VIAL IVPB ONE ×3 (00:56→17:15)
[2020-06-22] MEDS ORDERED: DEXTROSE 5%-WATER - 50 ML IVPB ONE ×3 (00:56→17:15)
[2020-06-22] MEDS: PIPERACILLIN/TAZOB 3.375 GM 3.375 GM in DEXTROSE 5%-WATER - 50 ML IVPB SCH ×3 (01:14→17:47)
[2020-06-22] MEDS: NYSTATIN POWDER 100,000 UNITS/GM - 15 GM TOPICAL POWDER TP SCH ×3 (06:50→21:57)
[2020-06-22] MEDS: DOCUSATE SODIUM 100 MG CAPSULE (FP) PO SCH ×3 (06:51→21:56)
[2020-06-22 07:46] LABS: BASO % 0.7 % (0-2.0); EOS % 8.9 % (0-4.5); HEMATOCRIT 27.2 % (35.4-49); HEMOGLOBIN 8.9 GM/dL (11.7-16.9); LYMPH % 19.3 % (8-40); MCH 29.8 pg (25.7-33.7); MCHC 32.8 g/dl (32.0-35.9); MEAN CELL VOLUME 90.7 fl (80-96); MEAN PLT VOLUME 7.5 fl (7.5-11.1); MONO % 5.5 % (3.8-10.2); NEUT % 65.6 % (42.8-82.8); PLATELET COUNT 407 K/MM3 (134-434); RDW 15.6 % (11.9-15.9)
[2020-06-22 08:03] LABS: ALBUMIN 2.2 g/dl (3.4-5.0); BLOOD UREA NITROGEN 11.9 mg/dL (7-18); CALCIUM 8.7 mg/dL (8.5-10.1)
[2020-06-22 08:04] LABS: MAGNESIUM 2.3 mg/dL (1.8-2.4)
[2020-06-22 08:08] LABS: CREATININE 0.4 mg/dL (0.55-1.3)
[2020-06-22 08:09] LABS: BILIRUBIN,TOTAL 0.2 mg/dL (0.2-1); TOT PROT 6.7 g/dl (6.4-8.2)
[2020-06-22] MEDS ORDERED: PT OWN MED DRAWER 7, Y5N ONE (09:36)
[2020-06-22] MEDS: ASCORBIC ACID 500 MG TABLET (FP) PO SCH (09:55)
[2020-06-22] MEDS: ENOXAPARIN NA (PORCINE) 40 MG/0.4 ML DISP.SYRIN SQ SCH (09:55)
[2020-06-22] MEDS: PYRIDOXINE HCL (B-6) 50 MG TABLET (FP) PO SCH (09:56)
[2020-06-22] MEDS: FERROUS SO4 325 MG TABLET (FP) PO SCH (09:56)
[2020-06-22] MEDS: FOLIC ACID 1 MG TABLET (FP) PO SCH (09:56)
[2020-06-22] MEDS: ZINC SULFATE 220 MG CAPSULE (FP) PO SCH (09:56)
[2020-06-22] MEDS: MULTIVITAMINS THER W-MINERALS COMBO TABLET (FP) PO SCH (09:56)
[2020-06-22] MEDS: CYANOCOBALAMIN 1,000 MCG TABLET (FP) PO SCH (09:56)
[2020-06-22] MEDS: CHOLECALCIFEROL (VIT D3) 400 UNIT (10 MCG) TABLET PO SCH (09:56)
[2020-06-22] MEDS: PANTOPRAZOLE 40 MG TABLET PO SCH (09:56)
[2020-06-22] MEDS: AMINO ACIDS/PROTEIN HYDROLYS 30 ML LIQUID.PKT PO SCH ×2 (09:58→17:47)
[2020-06-22] MEDS: LACTULOSE 20 GM/30 ML UDC (FOR ORAL USE ONLY) PO SCH ×2 (09:58→21:56)
[2020-06-22] MEDS ORDERED: VANCOMYCIN/HEPARIN - ANTIBIOTIC LOCK 3 ML (RESTRICTED TO ID) IVPUSH PRN ×2 (11:21→11:37)
[2020-06-22] MEDS: MAGNESIUM HYDROX 2400MG/30ML ORAL SUSPENSION 30 ML CUP PO PRN (17:58)
[2020-06-22] MEDS: GABAPENTIN 300 MG CAPSULE PO SCH (21:56)
[2020-06-22] MEDS: BACLOFEN 10 MG TABLET (FP) PO SCH (21:56)
[2020-06-23] MEDS ORDERED: PIPERACILLIN/TAZOBACTAM 3.375 GM VIAL IVPB ONE ×3 (01:01→17:35)
[2020-06-23] MEDS ORDERED: DEXTROSE 5%-WATER - 50 ML IVPB ONE ×3 (01:01→17:35)
[2020-06-23] MEDS: PIPERACILLIN/TAZOB 3.375 GM 3.375 GM in DEXTROSE 5%-WATER - 50 ML IVPB SCH ×3 (01:47→17:57)
[2020-06-23] MEDS: NYSTATIN POWDER 100,000 UNITS/GM - 15 GM TOPICAL POWDER TP SCH ×2 (05:46→15:07)
[2020-06-23] MEDS: DOCUSATE SODIUM 100 MG CAPSULE (FP) PO SCH ×3 (05:46→21:21)
[2020-06-23 08:52] LABS: BASO % 0.5 % (0-2.0); EOS % 6.9 % (0-4.5); HEMATOCRIT 29.9 % (35.4-49); HEMOGLOBIN 9.9 GM/dL (11.7-16.9); LYMPH % 17.2 % (8-40); MCH 30.2 pg (25.7-33.7); MCHC 33.2 g/dl (32.0-35.9); MEAN CELL VOLUME 91.2 fl (80-96); MEAN PLT VOLUME 7.3 fl (7.5-11.1); NEUT % 69.4 % (42.8-82.8); PLATELET COUNT 449 K/MM3 (134-434); RBC 3.27 M/mm3 (4.00-5.60); WHITE BLOOD COUNT 6.9 K/mm3 (4.0-10.0)
[2020-06-23 09:17] LABS: POTASSIUM 4.6 mmol/L (3.5-5.1)
[2020-06-23 09:22] LABS: ALBUMIN 2.5 g/dl (3.4-5.0); BLOOD UREA NITROGEN 18.2 mg/dL (7-18); CALCIUM 9.5 mg/dL (8.5-10.1); MAGNESIUM 2.5 mg/dL (1.8-2.4)
[2020-06-23 09:26] LABS: CREATININE 0.5 mg/dL (0.55-1.3)
[2020-06-23 09:27] LABS: BILIRUBIN,TOTAL 0.2 mg/dL (0.2-1); TOT PROT 7.4 g/dl (6.4-8.2)
[2020-06-23] MEDS ORDERED: PT OWN MED DRAWER 7, Y5N ONE (10:07)
[2020-06-23] MEDS: AMINO ACIDS/PROTEIN HYDROLYS 30 ML LIQUID.PKT PO SCH ×2 (10:17→17:57)
[2020-06-23] MEDS: LACTULOSE 20 GM/30 ML UDC (FOR ORAL USE ONLY) PO SCH ×2 (10:17→21:21)
[2020-06-23] MEDS: ENOXAPARIN NA (PORCINE) 40 MG/0.4 ML DISP.SYRIN SQ SCH (10:17)
[2020-06-23] MEDS: PYRIDOXINE HCL (B-6) 50 MG TABLET (FP) PO SCH (10:18)
[2020-06-23] MEDS: CHOLECALCIFEROL (VIT D3) 400 UNIT (10 MCG) TABLET PO SCH (10:18)
[2020-06-23] MEDS: FOLIC ACID 1 MG TABLET (FP) PO SCH (10:18)
[2020-06-23] MEDS: CYANOCOBALAMIN 1,000 MCG TABLET (FP) PO SCH (10:18)
[2020-06-23] MEDS: ZINC SULFATE 220 MG CAPSULE (FP) PO SCH (10:18)
[2020-06-23] MEDS: FERROUS SO4 325 MG TABLET (FP) PO SCH (10:18)
[2020-06-23] MEDS: PANTOPRAZOLE 40 MG TABLET PO SCH (10:18)
[2020-06-23] MEDS: MULTIVITAMINS THER W-MINERALS COMBO TABLET (FP) PO SCH (10:18)
[2020-06-23] MEDS: ASCORBIC ACID 500 MG TABLET (FP) PO SCH (10:18)
[2020-06-23] MEDS: GABAPENTIN 300 MG CAPSULE PO SCH (21:22)
[2020-06-23] MEDS: BACLOFEN 10 MG TABLET (FP) PO SCH (21:23)
[2020-06-23] MEDS: HYDROCORTISONE 1% TOPICAL CREAM 30 GM TUBE TP SCH (21:24)
[2020-06-23] MEDS: CLOTRIMAZOLE 1% CREAM 15 GM TUBE TP SCH (23:17)
[2020-06-24] MEDS ORDERED: DEXTROSE 5%-WATER - 50 ML IVPB ONE ×3 (01:44→17:03)
[2020-06-24] MEDS ORDERED: PIPERACILLIN/TAZOBACTAM 3.375 GM VIAL IVPB ONE ×3 (01:44→17:03)
[2020-06-24] MEDS: PIPERACILLIN/TAZOB 3.375 GM 3.375 GM in DEXTROSE 5%-WATER - 50 ML IVPB SCH ×3 (01:48→18:01)
[2020-06-24] MEDS: DOCUSATE SODIUM 100 MG CAPSULE (FP) PO SCH ×3 (07:28→22:31)
[2020-06-24] MEDS: ENOXAPARIN NA (PORCINE) 40 MG/0.4 ML DISP.SYRIN SQ SCH (09:53)
[2020-06-24] MEDS: AMINO ACIDS/PROTEIN HYDROLYS 30 ML LIQUID.PKT PO SCH ×2 (09:54→17:58)
[2020-06-24] MEDS: LACTULOSE 20 GM/30 ML UDC (FOR ORAL USE ONLY) PO SCH ×2 (09:54→22:30)
[2020-06-24] MEDS: FOLIC ACID 1 MG TABLET (FP) PO SCH (09:55)
[2020-06-24] MEDS: ASCORBIC ACID 500 MG TABLET (FP) PO SCH (09:55)
[2020-06-24] MEDS: PYRIDOXINE HCL (B-6) 50 MG TABLET (FP) PO SCH (09:55)
[2020-06-24] MEDS: MULTIVITAMINS THER W-MINERALS COMBO TABLET (FP) PO SCH (09:55)
[2020-06-24] MEDS: FERROUS SO4 325 MG TABLET (FP) PO SCH (09:55)
[2020-06-24] MEDS: PANTOPRAZOLE 40 MG TABLET PO SCH (09:55)
[2020-06-24] MEDS: ZINC SULFATE 220 MG CAPSULE (FP) PO SCH (09:55)
[2020-06-24] MEDS: CYANOCOBALAMIN 1,000 MCG TABLET (FP) PO SCH (09:55)
[2020-06-24] MEDS: HYDROCORTISONE 1% TOPICAL CREAM 30 GM TUBE TP SCH ×2 (09:55→22:32)
[2020-06-24] MEDS: CHOLECALCIFEROL (VIT D3) 400 UNIT (10 MCG) TABLET PO SCH (09:55)
[2020-06-24] MEDS: CLOTRIMAZOLE 1% CREAM 15 GM TUBE TP SCH ×2 (09:56→22:32)
[2020-06-24 12:17] LABS: BASO % 0.7 % (0-2.0); EOS % 6.5 % (0-4.5); HEMOGLOBIN 9.7 GM/dL (11.7-16.9); LYMPH % 16.6 % (8-40); MCHC 32.2 g/dl (32.0-35.9); MEAN CELL VOLUME 90.1 fl (80-96); MEAN PLT VOLUME 7.2 fl (7.5-11.1); MONO % 7.5 % (3.8-10.2); NEUT % 68.7 % (42.8-82.8); PLATELET COUNT 411 K/MM3 (134-434); RBC 3.33 M/mm3 (4.00-5.60); RDW 16.5 % (11.9-15.9); WHITE BLOOD COUNT 7.3 K/mm3 (4.0-10.0)
[2020-06-24 12:28] LABS: POTASSIUM 4.2 mmol/L (3.5-5.1)
[2020-06-24 12:29] LABS: CALCIUM 9.5 mg/dL (8.5-10.1)
[2020-06-24 12:30] LABS: ALBUMIN 2.4 g/dl (3.4-5.0); BLOOD UREA NITROGEN 22.9 mg/dL (7-18); MAGNESIUM 2.3 mg/dL (1.8-2.4)
[2020-06-24 12:33] LABS: CREATININE 0.8 mg/dL (0.55-1.3)
[2020-06-24 12:35] LABS: BILIRUBIN,TOTAL 0.2 mg/dL (0.2-1); TOT PROT 7.2 g/dl (6.4-8.2)
[2020-06-24] MEDS: GABAPENTIN 300 MG CAPSULE PO SCH (22:31)
[2020-06-24] MEDS: BACLOFEN 10 MG TABLET (FP) PO SCH (22:31)
[2020-06-25] MEDS ORDERED: PIPERACILLIN/TAZOBACTAM 3.375 GM VIAL IVPB ONE ×3 (01:29→17:01)
[2020-06-25] MEDS ORDERED: DEXTROSE 5%-WATER - 50 ML IVPB ONE ×3 (01:29→17:01)
[2020-06-25] MEDS: PIPERACILLIN/TAZOB 3.375 GM 3.375 GM in DEXTROSE 5%-WATER - 50 ML IVPB SCH ×3 (02:01→18:11)
[2020-06-25] MEDS: DOCUSATE SODIUM 100 MG CAPSULE (FP) PO SCH ×3 (05:11→21:41)
[2020-06-25 08:31] LABS: POTASSIUM 4.1 mmol/L (3.5-5.1)
[2020-06-25 08:33] LABS: BASO % 0.6 % (0-2.0); EOS % 5.2 % (0-4.5); HEMATOCRIT 28.7 % (35.4-49); HEMOGLOBIN 9.4 GM/dL (11.7-16.9); LYMPH % 15.3 % (8-40); MCH 29.8 pg (25.7-33.7); MCHC 32.6 g/dl (32.0-35.9); MEAN CELL VOLUME 91.5 fl (80-96); MEAN PLT VOLUME 7.4 fl (7.5-11.1); MONO % 6.9 % (3.8-10.2); PLATELET COUNT 369 K/MM3 (134-434); RBC 3.14 M/mm3 (4.00-5.60); RDW 16.1 % (11.9-15.9); WHITE BLOOD COUNT 8.1 K/mm3 (4.0-10.0)
[2020-06-25 08:38] LABS: CALCIUM 9.7 mg/dL (8.5-10.1)
[2020-06-25 08:39] LABS: ALBUMIN 2.6 g/dl (3.4-5.0); BLOOD UREA NITROGEN 20.6 mg/dL (7-18); MAGNESIUM 2.4 mg/dL (1.8-2.4)
[2020-06-25 08:40] LABS: CREATININE 0.5 mg/dL (0.55-1.3)
[2020-06-25 08:42] LABS: BILIRUBIN,TOTAL 0.2 mg/dL (0.2-1)
[2020-06-25 08:44] LABS: TOT PROT 7.2 g/dl (6.4-8.2)
[2020-06-25] MEDS: AMINO ACIDS/PROTEIN HYDROLYS 30 ML LIQUID.PKT PO SCH ×2 (09:55→17:12)
[2020-06-25] MEDS ORDERED: PT OWN MED DRAWER 7, Y5N ONE (10:40)
[2020-06-25] MEDS: MULTIVITAMINS THER W-MINERALS COMBO TABLET (FP) PO SCH (11:01)
[2020-06-25] MEDS: ZINC SULFATE 220 MG CAPSULE (FP) PO SCH (11:02)
[2020-06-25] MEDS: CHOLECALCIFEROL (VIT D3) 400 UNIT (10 MCG) TABLET PO SCH (11:02)
[2020-06-25] MEDS: CYANOCOBALAMIN 1,000 MCG TABLET (FP) PO SCH (11:02)
[2020-06-25] MEDS: FERROUS SO4 325 MG TABLET (FP) PO SCH (11:02)
[2020-06-25] MEDS: FOLIC ACID 1 MG TABLET (FP) PO SCH (11:02)
[2020-06-25] MEDS: PANTOPRAZOLE 40 MG TABLET PO SCH (11:02)
[2020-06-25] MEDS: PYRIDOXINE HCL (B-6) 50 MG TABLET (FP) PO SCH (11:03)
[2020-06-25] MEDS: LACTULOSE 20 GM/30 ML UDC (FOR ORAL USE ONLY) PO SCH ×2 (11:16→21:41)
[2020-06-25] MEDS: ENOXAPARIN NA (PORCINE) 40 MG/0.4 ML DISP.SYRIN SQ SCH (11:17)
[2020-06-25] MEDS: ASCORBIC ACID 500 MG TABLET (FP) PO SCH (11:18)
[2020-06-25] MEDS: HYDROCORTISONE 1% TOPICAL CREAM 30 GM TUBE TP SCH ×2 (11:18→21:42)
[2020-06-25] MEDS: CLOTRIMAZOLE 1% CREAM 15 GM TUBE TP SCH ×2 (11:19→21:42)
[2020-06-25] MEDS: BACLOFEN 10 MG TABLET (FP) PO SCH (21:40)
[2020-06-25] MEDS: GABAPENTIN 300 MG CAPSULE PO SCH (21:41)
[2020-06-26] MEDS ORDERED: PIPERACILLIN/TAZOBACTAM 3.375 GM VIAL IVPB ONE ×3 (01:26→17:24)
[2020-06-26] MEDS ORDERED: DEXTROSE 5%-WATER - 50 ML IVPB ONE ×3 (01:27→17:24)
[2020-06-26] MEDS: PIPERACILLIN/TAZOB 3.375 GM 3.375 GM in DEXTROSE 5%-WATER - 50 ML IVPB SCH ×3 (01:47→17:29)
[2020-06-26] MEDS: DOCUSATE SODIUM 100 MG CAPSULE (FP) PO SCH ×3 (05:41→22:02)
[2020-06-26 07:36] LABS: BASO % 0.8 % (0-2.0); HEMATOCRIT 29.3 % (35.4-49); HEMOGLOBIN 9.5 GM/dL (11.7-16.9); LYMPH % 17.1 % (8-40); MCH 29.7 pg (25.7-33.7); MCHC 32.3 g/dl (32.0-35.9); MEAN CELL VOLUME 91.8 fl (80-96); MEAN PLT VOLUME 7.6 fl (7.5-11.1); MONO % 6.6 % (3.8-10.2); NEUT % 68.5 % (42.8-82.8); PLATELET COUNT 375 K/MM3 (134-434); RBC 3.19 M/mm3 (4.00-5.60); RDW 16.4 % (11.9-15.9); WHITE BLOOD COUNT 6.4 K/mm3 (4.0-10.0)
[2020-06-26 07:44] LABS: POTASSIUM 4.2 mmol/L (3.5-5.1)
[2020-06-26 08:05] LABS: ALBUMIN 2.5 g/dl (3.4-5.0); BLOOD UREA NITROGEN 21.9 mg/dL (7-18); CALCIUM 9.5 mg/dL (8.5-10.1); MAGNESIUM 2.5 mg/dL (1.8-2.4)
[2020-06-26 08:09] LABS: CREATININE 0.6 mg/dL (0.55-1.3)
[2020-06-26 08:10] LABS: BILIRUBIN,TOTAL 0.7 mg/dL (0.2-1); TOT PROT 7.1 g/dl (6.4-8.2)
[2020-06-26] MEDS ORDERED: PT OWN MED DRAWER 7, Y5N ONE (09:06)
[2020-06-26] MEDS: AMINO ACIDS/PROTEIN HYDROLYS 30 ML LIQUID.PKT PO SCH ×2 (09:12→17:29)
[2020-06-26] MEDS: LACTULOSE 20 GM/30 ML UDC (FOR ORAL USE ONLY) PO SCH ×2 (09:12→22:02)
[2020-06-26] MEDS: FOLIC ACID 1 MG TABLET (FP) PO SCH (09:13)
[2020-06-26] MEDS: PYRIDOXINE HCL (B-6) 50 MG TABLET (FP) PO SCH (09:13)
[2020-06-26] MEDS: ZINC SULFATE 220 MG CAPSULE (FP) PO SCH (09:13)
[2020-06-26] MEDS: CYANOCOBALAMIN 1,000 MCG TABLET (FP) PO SCH (09:13)
[2020-06-26] MEDS: ENOXAPARIN NA (PORCINE) 40 MG/0.4 ML DISP.SYRIN SQ SCH (09:13)
[2020-06-26] MEDS: MULTIVITAMINS THER W-MINERALS COMBO TABLET (FP) PO SCH (09:13)
[2020-06-26] MEDS: ASCORBIC ACID 500 MG TABLET (FP) PO SCH (09:13)
[2020-06-26] MEDS: PANTOPRAZOLE 40 MG TABLET PO SCH (09:13)
[2020-06-26] MEDS: FERROUS SO4 325 MG TABLET (FP) PO SCH (09:13)
[2020-06-26] MEDS: CHOLECALCIFEROL (VIT D3) 400 UNIT (10 MCG) TABLET PO SCH (09:13)
[2020-06-26] MEDS: HYDROCORTISONE 1% TOPICAL CREAM 30 GM TUBE TP SCH ×2 (09:14→22:03)
[2020-06-26] MEDS: CLOTRIMAZOLE 1% CREAM 15 GM TUBE TP SCH ×2 (09:14→22:04)
[2020-06-26] MEDS: GABAPENTIN 300 MG CAPSULE PO SCH (22:02)
[2020-06-26] MEDS: BACLOFEN 10 MG TABLET (FP) PO SCH (22:02)
[2020-06-27] MEDS ORDERED: PIPERACILLIN/TAZOBACTAM 3.375 GM VIAL IVPB ONE ×3 (02:58→17:01)
[2020-06-27] MEDS ORDERED: DEXTROSE 5%-WATER - 50 ML IVPB ONE ×3 (02:58→17:01)
[2020-06-27] MEDS: PIPERACILLIN/TAZOB 3.375 GM 3.375 GM in DEXTROSE 5%-WATER - 50 ML IVPB SCH ×3 (03:01→17:13)
[2020-06-27] MEDS: DOCUSATE SODIUM 100 MG CAPSULE (FP) PO SCH ×3 (06:40→21:04)
[2020-06-27 08:16] LABS: BASO % 0.7 % (0-2.0); EOS % 6.4 % (0-4.5); HEMATOCRIT 29.3 % (35.4-49); HEMOGLOBIN 9.4 GM/dL (11.7-16.9); LYMPH % 15.8 % (8-40); MCH 29.2 pg (25.7-33.7); MCHC 32.2 g/dl (32.0-35.9); MEAN CELL VOLUME 90.7 fl (80-96); MEAN PLT VOLUME 7.6 fl (7.5-11.1); MONO % 6.9 % (3.8-10.2); NEUT % 70.2 % (42.8-82.8); PLATELET COUNT 357 K/MM3 (134-434); RBC 3.23 M/mm3 (4.00-5.60); RDW 16.7 % (11.9-15.9); WHITE BLOOD COUNT 8.2 K/mm3 (4.0-10.0)
[2020-06-27 08:26] LABS: POTASSIUM 4.7 mmol/L (3.5-5.1)
[2020-06-27 08:31] LABS: CALCIUM 9.2 mg/dL (8.5-10.1)
[2020-06-27 08:32] LABS: ALBUMIN 2.5 g/dl (3.4-5.0); BLOOD UREA NITROGEN 19.9 mg/dL (7-18); MAGNESIUM 2.5 mg/dL (1.8-2.4)
[2020-06-27 08:35] LABS: BILIRUBIN,TOTAL 0.2 mg/dL (0.2-1); CREATININE 0.5 mg/dL (0.55-1.3)
[2020-06-27 08:36] LABS: TOT PROT 7.2 g/dl (6.4-8.2)
[2020-06-27] MEDS: AMINO ACIDS/PROTEIN HYDROLYS 30 ML LIQUID.PKT PO SCH ×2 (09:11→17:09)
[2020-06-27] MEDS ORDERED: PT OWN MED DRAWER 7, Y5N ONE (09:50)
[2020-06-27] MEDS: ASCORBIC ACID 500 MG TABLET (FP) PO SCH (09:52)
[2020-06-27] MEDS: CHOLECALCIFEROL (VIT D3) 400 UNIT (10 MCG) TABLET PO SCH (09:52)
[2020-06-27] MEDS: CYANOCOBALAMIN 1,000 MCG TABLET (FP) PO SCH (09:52)
[2020-06-27] MEDS: PANTOPRAZOLE 40 MG TABLET PO SCH (09:52)
[2020-06-27] MEDS: LACTULOSE 20 GM/30 ML UDC (FOR ORAL USE ONLY) PO SCH ×2 (09:52→21:04)
[2020-06-27] MEDS: ENOXAPARIN NA (PORCINE) 40 MG/0.4 ML DISP.SYRIN SQ SCH (09:52)
[2020-06-27] MEDS: FOLIC ACID 1 MG TABLET (FP) PO SCH (09:52)
[2020-06-27] MEDS: FERROUS SO4 325 MG TABLET (FP) PO SCH (09:53)
[2020-06-27] MEDS: HYDROCORTISONE 1% TOPICAL CREAM 30 GM TUBE TP SCH ×2 (09:53→21:04)
[2020-06-27] MEDS: MULTIVITAMINS THER W-MINERALS COMBO TABLET (FP) PO SCH (09:53)
[2020-06-27] MEDS: ZINC SULFATE 220 MG CAPSULE (FP) PO SCH (09:53)
[2020-06-27] MEDS: PYRIDOXINE HCL (B-6) 50 MG TABLET (FP) PO SCH (09:53)
[2020-06-27] MEDS: CLOTRIMAZOLE 1% CREAM 15 GM TUBE TP SCH ×2 (09:53→21:05)
[2020-06-27] MEDS: BACLOFEN 10 MG TABLET (FP) PO SCH (21:05)
[2020-06-27] MEDS: GABAPENTIN 300 MG CAPSULE PO SCH (21:05)
[2020-06-28] MEDS ORDERED: PIPERACILLIN/TAZOBACTAM 3.375 GM VIAL IVPB ONE ×3 (02:11→17:14)
[2020-06-28] MEDS ORDERED: DEXTROSE 5%-WATER - 50 ML IVPB ONE ×3 (02:12→17:14)
[2020-06-28] MEDS: PIPERACILLIN/TAZOB 3.375 GM 3.375 GM in DEXTROSE 5%-WATER - 50 ML IVPB SCH ×3 (02:32→17:40)
[2020-06-28] MEDS: DOCUSATE SODIUM 100 MG CAPSULE (FP) PO SCH ×3 (06:14→21:18)
[2020-06-28] MEDS: AMINO ACIDS/PROTEIN HYDROLYS 30 ML LIQUID.PKT PO SCH ×2 (08:21→17:40)
[2020-06-28] MEDS: FOLIC ACID 1 MG TABLET (FP) PO SCH (10:39)
[2020-06-28] MEDS: MULTIVITAMINS THER W-MINERALS COMBO TABLET (FP) PO SCH (10:39)
[2020-06-28] MEDS: PYRIDOXINE HCL (B-6) 50 MG TABLET (FP) PO SCH (10:39)
[2020-06-28] MEDS: FERROUS SO4 325 MG TABLET (FP) PO SCH (10:39)
[2020-06-28] MEDS: PANTOPRAZOLE 40 MG TABLET PO SCH (10:39)
[2020-06-28] MEDS: ASCORBIC ACID 500 MG TABLET (FP) PO SCH (10:39)
[2020-06-28] MEDS: CHOLECALCIFEROL (VIT D3) 400 UNIT (10 MCG) TABLET PO SCH (10:39)
[2020-06-28] MEDS: ZINC SULFATE 220 MG CAPSULE (FP) PO SCH (10:39)
[2020-06-28] MEDS: CYANOCOBALAMIN 1,000 MCG TABLET (FP) PO SCH (10:39)
[2020-06-28] MEDS: LACTULOSE 20 GM/30 ML UDC (FOR ORAL USE ONLY) PO SCH ×2 (10:40→21:18)
[2020-06-28] MEDS: ENOXAPARIN NA (PORCINE) 40 MG/0.4 ML DISP.SYRIN SQ SCH (10:41)
[2020-06-28] MEDS: CLOTRIMAZOLE 1% CREAM 15 GM TUBE TP SCH ×2 (11:33→21:18)
[2020-06-28] MEDS: HYDROCORTISONE 1% TOPICAL CREAM 30 GM TUBE TP SCH ×2 (11:33→21:18)
[2020-06-28] MEDS: BACLOFEN 10 MG TABLET (FP) PO SCH (21:18)
[2020-06-28] MEDS: GABAPENTIN 300 MG CAPSULE PO SCH (21:19)
[2020-06-29] MEDS ORDERED: PIPERACILLIN/TAZOBACTAM 3.375 GM VIAL IVPB ONE ×2 (00:54→09:05)
[2020-06-29] MEDS ORDERED: DEXTROSE 5%-WATER - 50 ML IVPB ONE ×2 (00:55→09:06)
[2020-06-29] MEDS: PIPERACILLIN/TAZOB 3.375 GM 3.375 GM in DEXTROSE 5%-WATER - 50 ML IVPB SCH ×2 (02:37→09:26)
[2020-06-29] MEDS: DOCUSATE SODIUM 100 MG CAPSULE (FP) PO SCH ×2 (06:51→14:10)
[2020-06-29 08:25] LABS: BASO % 0.7 % (0-2.0); EOS % 8.3 % (0-4.5); HEMATOCRIT 31.6 % (35.4-49); HEMOGLOBIN 10.3 GM/dL (11.7-16.9); LYMPH % 17.9 % (8-40); MCH 29.9 pg (25.7-33.7); MCHC 32.7 g/dl (32.0-35.9); MEAN CELL VOLUME 91.4 fl (80-96); MEAN PLT VOLUME 7.6 fl (7.5-11.1); MONO % 6.3 % (3.8-10.2); NEUT % 66.8 % (42.8-82.8); PLATELET COUNT 345 K/MM3 (134-434); RBC 3.46 M/mm3 (4.00-5.60); RDW 16.7 % (11.9-15.9); WHITE BLOOD COUNT 6.2 K/mm3 (4.0-10.0)
[2020-06-29 08:40] LABS: POTASSIUM 3.9 mmol/L (3.5-5.1)
[2020-06-29 08:58] LABS: ALBUMIN 2.7 g/dl (3.4-5.0); CALCIUM 9.7 mg/dL (8.5-10.1); MAGNESIUM 2.4 mg/dL (1.8-2.4)
[2020-06-29 08:59] LABS: BLOOD UREA NITROGEN 15.3 mg/dL (7-18)
[2020-06-29 09:01] LABS: CREATININE 0.5 mg/dL (0.55-1.3)
[2020-06-29 09:03] LABS: BILIRUBIN,TOTAL 0.3 mg/dL (0.2-1); TOT PROT 7.4 g/dl (6.4-8.2)
[2020-06-29] MEDS ORDERED: PT OWN MED DRAWER 7, Y5N ONE ×2 (09:10→10:59)
[2020-06-29] MEDS: AMINO ACIDS/PROTEIN HYDROLYS 30 ML LIQUID.PKT PO SCH (09:15)
[2020-06-29] MEDS: LACTULOSE 20 GM/30 ML UDC (FOR ORAL USE ONLY) PO SCH (09:15)
[2020-06-29] MEDS: ZINC SULFATE 220 MG CAPSULE (FP) PO SCH (09:16)
[2020-06-29] MEDS: CHOLECALCIFEROL (VIT D3) 400 UNIT (10 MCG) TABLET PO SCH (09:16)
[2020-06-29] MEDS: ASCORBIC ACID 500 MG TABLET (FP) PO SCH (09:16)
[2020-06-29] MEDS: ENOXAPARIN NA (PORCINE) 40 MG/0.4 ML DISP.SYRIN SQ SCH (09:16)
[2020-06-29] MEDS: MULTIVITAMINS THER W-MINERALS COMBO TABLET (FP) PO SCH (09:16)
[2020-06-29] MEDS: FERROUS SO4 325 MG TABLET (FP) PO SCH (09:16)
[2020-06-29] MEDS: FOLIC ACID 1 MG TABLET (FP) PO SCH (09:16)
[2020-06-29] MEDS: PANTOPRAZOLE 40 MG TABLET PO SCH (09:16)
[2020-06-29] MEDS: CYANOCOBALAMIN 1,000 MCG TABLET (FP) PO SCH (09:16)
[2020-06-29] MEDS: PYRIDOXINE HCL (B-6) 50 MG TABLET (FP) PO SCH (09:16)
[2020-06-29] MEDS: HYDROCORTISONE 1% TOPICAL CREAM 30 GM TUBE TP SCH (11:00)
[2020-06-29] MEDS: CLOTRIMAZOLE 1% CREAM 15 GM TUBE TP SCH (11:01)
[2020-06-29 14:55] VITALS: BP 90/62; PULSE 92; TEMP 97.6
== END 2020-06-29 15:45 | DRG 919 ==
LOC: JER 14:15 → JERBED 17:23 → J8W 18:49
PROVIDERS: ATTEND Nurse Practitioner Family
PROC: 0HB6XZZ Excision of Back Skin, External Approach (ICD-10-PCS; principal; 2020-06-19)
DX: T81.31XA Disruption of external operation (surgical) wound, not elsewhere classified, initial encounter (principal); L89.124 Pressure ulcer of left upper back, stage 4; R53.2 Functional quadriplegia; M86.652 Other chronic osteomyelitis, left thigh; K27.9 Peptic ulcer, site unspecified, unspecified as acute or chronic, without hemorrhage or perforation; Z99.3 Dependence on wheelchair; D50.9 Iron deficiency anemia, unspecified; I10 Essential (primary) hypertension; Y83.8 Other surgical procedures as the cause of abnormal reaction of the patient, or of later complication, without mention of misadventure at the time of the procedure; K59.00 Constipation, unspecified; B36.9 Superficial mycosis, unspecified; Z93.3 Colostomy status; Z20.828 Contact with and (suspected) exposure to other viral communicable diseases
CPT/HCPCS: 36415; 71045-TC-FY; 80053; 82272; 82607; 82728; 82746; 83540; 83550; 83605; 83735; 84100; 84443; 85025; 85045; 85610; 85730; 86140; 86769; 86850; 86870; 86900; 86901; 86902; 87040; 87070; 87186; 87205; 93005; 93010; 99285-25; C9803; J0475; U0003

== ENCOUNTER 2020-11-06 05:36 | Day surgery (SDC) | payer OTHER, BC ==
[2020-11-05 13:03] VITALS: BMI 25.7
[2020-11-06] MEDS ORDERED: MIDAZOLAM HCL 2 MG/2 ML SINGLE DOSE VIAL ONE (14:23)
[2020-11-06] MEDS ORDERED: PROPOFOL 20 ML ONE (14:23)
[2020-11-06] MEDS ORDERED: ceFAZolin 2 GRAM PREMIX BAG IVPB ONE (14:27)
[2020-11-06] MEDS ORDERED: LIDOCAINE 1%/EPI 1:100000 (50 ML MULTI DOSE VIAL) ONE (14:40)
[2020-11-06] MEDS ORDERED: ROCURONIUM BROMIDE 100 MG/10 ML VIAL ONE (14:46)
[2020-11-06] MEDS ORDERED: ceFAZolin SODIUM 1 GM VIAL ONE (14:47)
[2020-11-06] MEDS ORDERED: BACITRACIN 15 GM TUBE TOPICAL OINTMENT ONE (15:04)
[2020-11-06] MEDS ORDERED: EPHEDRINE SULFATE/0.9% NACL/PF 50 MG/10 ML SYRINGE NR ONE (15:09)
[2020-11-06] MEDS ORDERED: BUPIVACAINE HCL/PF 0.5% (5MG/ML) 10 ML VIAL IJ ONE (15:12)
[2020-11-06] MEDS ORDERED: hydrALAZINE HCL 20 MG/ML VIAL IVPUSH ONE (16:24)
[2020-11-06] MEDS ORDERED: hydrALAZINE HCL 20 MG/ML VIAL ONE (16:28)
[2020-11-06] MEDS ORDERED: PROMETHAZINE HCL 25 MG/1 ML VIAL IVPUSH PRN (17:22)
[2020-11-06] MEDS ORDERED: oxyCODONE HCL 5 MG TABLET PO PRN (17:22)
[2020-11-06] MEDS ORDERED: ONDANSETRON 4 MG/2 ML VIAL IVPUSH PRN (17:22)
[2020-11-06 18:20] VITALS: BP 139/82; PULSE 70; TEMP 98.1
== END 2020-11-06 18:00 | disposition home or self-care (01) ==
LOC: JASU-SURG 05:36
PROVIDERS: ATTEND Plastic Surgery
PROC: 0HR1X73 Replacement of Face Skin with Autologous Tissue Substitute, Full Thickness, External Approach (ICD-10-PCS; principal; 2020-11-06 14:00)
PROC: 0HB3XZZ Excision of Left Ear Skin, External Approach (ICD-10-PCS; 2020-11-06 14:00)
DX: C44.311 Basal cell carcinoma of skin of nose (principal)
CPT/HCPCS: 88305-TC; 94760

== ENCOUNTER 2022-02-10 12:40 | Inpatient (IN) | payer OTHER, BC ==
[2022-02-10 15:03] LABS: HEMATOCRIT 24.1 % (35.4-49); HEMOGLOBIN 7.9 GM/dL (11.7-16.9); MCH 27.4 pg (25.7-33.7); MCHC 32.7 g/dl (32.0-35.9); MEAN CELL VOLUME 83.8 fl (80-96); PLATELET COUNT 482 10^3/uL (134-434); RBC 2.87 M/mm3 (4.00-5.60); RDW 16.4 % (11.9-15.9)
[2022-02-10] MEDS ORDERED: VANCOMYCIN 1,000 MG in DEXTROSE 5%-WATER - 250 ML IVPB ONE (15:08)
[2022-02-10] MEDS ORDERED: CEFEPIME HCL/D5W 1 GM/50 ML BAG IVPB ONE (15:08)
[2022-02-10] MEDS ORDERED: SODIUM CHLORIDE 0.9% 500 ML INFUS.BAG IV ONE (15:23)
[2022-02-10 15:33] LABS: CALCIUM 8.7 mg/dL (8.5-10.1)
[2022-02-10 15:34] LABS: ALBUMIN 2.1 g/dl (3.4-5.0); BLOOD UREA NITROGEN 16.7 mg/dL (7-18)
[2022-02-10 15:36] LABS: CREATININE 0.7 mg/dL (0.55-1.3)
[2022-02-10 15:38] LABS: BILIRUBIN,TOTAL 0.9 mg/dL (0.2-1)
[2022-02-10 15:39] LABS: TOT PROT 7.5 g/dl (6.4-8.2)
[2022-02-10 15:46] LABS: ANISOCYTOSIS 0; HELMET CELLS 0; HOWELL-JOLLY BODIES 0; MACROCYTOSIS 0; OVALOCYTE 0; ROULEAU 0; SICKELED CELLS 0; TARGET CELLS 0; TEAR DROP CELLS 0; TOXIC GRANULATION 0
[2022-02-10] MEDS ORDERED: SODIUM CHLORIDE 1,000 ML IV SCH (17:45)
[2022-02-10 17:59] LABS: PH,URINE 5.5 (5.0-8.0); URINE APPEARANCE TURBID; URINE BILIRUBIN NEGATIVE (NEGATIVE); URINE COLOR YELLOW; URINE GLUCOSE (UA) NEGATIVE (NEGATIVE); URINE KETONE TRACE (NEGATIVE); URINE LEUK ESTERASE 3+ (NEGATIVE); URINE NITRITE POSITIVE (NEGATIVE); URINE PROTEIN 2+ (NEGATIVE); URINE UROBILINOGEN 0.2 mg/dL (0.2-1.0)
[2022-02-10 18:43] LABS: EPI CELLS 47 /uL (0-25.1); HYALINE CASTS 20 /uL (0-3.1); URINE BACTERIA 10524 /uL (0-1359); URINE CRYSTALS PRESENT /hpf; URINE RBC 55 /uL (0-23.9); URINE WBC 9738 /uL (0-25.8); YEAST PRESENT (NEGATIVE)
[2022-02-10] MEDS: PIPERACILLIN/TAZOB 3.375 GM 3.375 GM in DEXTROSE 5%-WATER - 50 ML IVPB SCH (20:00)
[2022-02-10] MEDS ORDERED: PIPERACILLIN/TAZOB 3.375 GM 3.375 GM/50 ML BAG IVPB ONE (20:01)
[2022-02-11] MEDS ORDERED: SODIUM CHLORIDE 0.9% 500 ML INFUS.BAG IV ONE (00:45)
[2022-02-11] MEDS ORDERED: DEXTROSE 5%-WATER - 50 ML IVPB ONE ×3 (05:08→18:04)
[2022-02-11] MEDS ORDERED: PIPERACILLIN/TAZOBACTAM 3.375 GM VIAL IVPB ONE ×3 (05:08→18:03)
[2022-02-11] MEDS: PIPERACILLIN/TAZOB 3.375 GM 3.375 GM in DEXTROSE 5%-WATER - 50 ML IVPB SCH ×3 (05:16→18:13)
[2022-02-11] MEDS: ESCITALOPRAM OXALATE 10 MG TABLET PO SCH (09:43)
[2022-02-11] MEDS: FINASTERIDE 5 MG TABLET (FP) PO SCH (09:43)
[2022-02-11] MEDS: PANTOPRAZOLE 40 MG TABLET PO SCH (09:43)
[2022-02-11] MEDS: ENOXAPARIN NA (PORCINE) 40 MG/0.4 ML DISP.SYRIN SQ SCH (09:43)
[2022-02-11] MEDS ORDERED: VANCOMYCIN 1 GM in D5W (PRE-DOCKED) 1,000 MG/250 ML IVPB SCH (10:00)
[2022-02-11 11:25] LABS: BASO % 0.3 % (0-2.0); EOS % 0.5 % (0-4.5); HEMATOCRIT 21.8 % (35.4-49); HEMOGLOBIN 7.2 GM/dL (11.7-16.9); LYMPH % 9.9 % (8-40); MCH 27.7 pg (25.7-33.7); MEAN PLT VOLUME 7.1 fl (7.5-11.1); MONO % 5.6 % (3.8-10.2); NEUT % 83.7 % (42.8-82.8); PLATELET COUNT 411 10^3/uL (134-434); RBC 2.59 M/mm3 (4.00-5.60); RDW 16.3 % (11.9-15.9); WHITE BLOOD COUNT 10.3 K/mm3 (4.0-10.0)
[2022-02-11 11:53] LABS: ALBUMIN 1.7 g/dl (3.4-5.0); BLOOD UREA NITROGEN 14.9 mg/dL (7-18); CALCIUM 8.5 mg/dL (8.5-10.1); MAGNESIUM 2.2 mg/dL (1.8-2.4)
[2022-02-11 11:56] LABS: CREATININE 0.5 mg/dL (0.55-1.3)
[2022-02-11 11:58] LABS: BILIRUBIN,TOTAL 0.5 mg/dL (0.2-1); TOT PROT 6.4 g/dl (6.4-8.2)
[2022-02-11 16:28] VITALS: BMI 23.0
[2022-02-11] MEDS ORDERED: PIPERACILLIN/TAZOB 3.375 GM 3.375 GM in DEXTROSE 5%-WATER - 50 ML IVPB SCH (18:00)
[2022-02-11] MEDS: AMINO ACIDS/PROTEIN HYDROLYS 30 ML LIQUID.PKT PO SCH (18:13)
[2022-02-11] MEDS: ATORVASTATIN CA 20 MG TABLET (FP) PO SCH (23:07)
[2022-02-11] MEDS: VANCOMYCIN/WATER 1250 MG 1,250 MG/250 ML BAG IVPB SCH (23:07)
[2022-02-12] MEDS ORDERED: PIPERACILLIN/TAZOBACTAM 3.375 GM VIAL IVPB ONE ×3 (00:53→17:16)
[2022-02-12] MEDS ORDERED: DEXTROSE 5%-WATER - 50 ML IVPB ONE ×3 (00:53→17:16)
[2022-02-12] MEDS: PIPERACILLIN/TAZOB 3.375 GM 3.375 GM in DEXTROSE 5%-WATER - 50 ML IVPB SCH ×3 (01:18→17:28)
[2022-02-12 08:27] LABS: BASO % 0.5 % (0-2.0); EOS % 1.2 % (0-4.5); HEMATOCRIT 18.5 % (35.4-49); LYMPH % 13.6 % (8-40); MCH 27.9 pg (25.7-33.7); MCHC 33.1 g/dl (32.0-35.9); MEAN CELL VOLUME 84.1 fl (80-96); MEAN PLT VOLUME 7.5 fl (7.5-11.1); MONO % 4.5 % (3.8-10.2); NEUT % 80.2 % (42.8-82.8); PLATELET COUNT 367 10^3/uL (134-434); RBC 2.19 M/mm3 (4.00-5.60); RDW 16.5 % (11.9-15.9); WHITE BLOOD COUNT 9.5 K/mm3 (4.0-10.0)
[2022-02-12] MEDS: AMINO ACIDS/PROTEIN HYDROLYS 30 ML LIQUID.PKT PO SCH ×3 (08:28→17:28)
[2022-02-12 08:48] LABS: ALBUMIN 1.6 g/dl (3.4-5.0); BLOOD UREA NITROGEN 13.9 mg/dL (7-18)
[2022-02-12 08:51] LABS: CREATININE 0.5 mg/dL (0.55-1.3)
[2022-02-12 08:52] LABS: BILIRUBIN,TOTAL 0.3 mg/dL (0.2-1)
[2022-02-12 09:00] LABS: HEMOGLOBIN 6.1 GM/dL (11.7-16.9)
[2022-02-12] MEDS ORDERED: VANCOMYCIN 1 GM in D5W (PRE-DOCKED) 1,000 MG/250 ML IVPB SCH (10:00)
[2022-02-12] MEDS: ESCITALOPRAM OXALATE 10 MG TABLET PO SCH (10:43)
[2022-02-12] MEDS: ENOXAPARIN NA (PORCINE) 40 MG/0.4 ML DISP.SYRIN SQ SCH (10:43)
[2022-02-12] MEDS: PANTOPRAZOLE 40 MG TABLET PO SCH (10:43)
[2022-02-12] MEDS: MULTIVITAMINS (DAILY MVI) TABLET (FP) PO SCH (10:43)
[2022-02-12] MEDS: FINASTERIDE 5 MG TABLET (FP) PO SCH (10:43)
[2022-02-12] MEDS: ASCORBIC ACID 500 MG TABLET (FP) PO SCH (10:43)
[2022-02-12] MEDS: VANCOMYCIN/WATER 1250 MG 1,250 MG/250 ML BAG IVPB SCH ×2 (10:44→22:30)
[2022-02-12] MEDS: ATORVASTATIN CA 20 MG TABLET (FP) PO SCH (22:30)
[2022-02-13] MEDS ORDERED: PIPERACILLIN/TAZOBACTAM 3.375 GM VIAL IVPB ONE ×3 (01:43→17:06)
[2022-02-13] MEDS: PIPERACILLIN/TAZOB 3.375 GM 3.375 GM in DEXTROSE 5%-WATER - 50 ML IVPB SCH ×3 (01:44→17:19)
[2022-02-13] MEDS ORDERED: DEXTROSE 5%-WATER - 50 ML IVPB ONE ×3 (01:44→17:06)
[2022-02-13] MEDS: FINASTERIDE 5 MG TABLET (FP) PO SCH (09:11)
[2022-02-13] MEDS: ESCITALOPRAM OXALATE 10 MG TABLET PO SCH (09:11)
[2022-02-13] MEDS: MULTIVITAMINS (DAILY MVI) TABLET (FP) PO SCH (09:11)
[2022-02-13] MEDS: AMINO ACIDS/PROTEIN HYDROLYS 30 ML LIQUID.PKT PO SCH ×3 (09:11→17:19)
[2022-02-13] MEDS: ASCORBIC ACID 500 MG TABLET (FP) PO SCH (09:11)
[2022-02-13] MEDS: VANCOMYCIN/WATER 1250 MG 1,250 MG/250 ML BAG IVPB SCH ×2 (09:11→21:23)
[2022-02-13] MEDS: PANTOPRAZOLE 40 MG TABLET PO SCH (09:11)
[2022-02-13 11:28] LABS: BASO % 0.5 % (0-2.0); EOS % 1.5 % (0-4.5); HEMATOCRIT 23.3 % (35.4-49); HEMOGLOBIN 7.7 GM/dL (11.7-16.9); LYMPH % 14.6 % (8-40); MCHC 33.1 g/dl (32.0-35.9); MEAN CELL VOLUME 84.4 fl (80-96); MEAN PLT VOLUME 7.5 fl (7.5-11.1); MONO % 3.5 % (3.8-10.2); NEUT % 79.9 % (42.8-82.8); PLATELET COUNT 417 10^3/uL (134-434); RBC 2.76 M/mm3 (4.00-5.60); RDW 16.1 % (11.9-15.9); WHITE BLOOD COUNT 10.8 K/mm3 (4.0-10.0)
[2022-02-13 11:50] LABS: CALCIUM 8.1 mg/dL (8.5-10.1)
[2022-02-13 11:51] LABS: BLOOD UREA NITROGEN 13.2 mg/dL (7-18); MAGNESIUM 2.1 mg/dL (1.8-2.4)
[2022-02-13 11:54] LABS: CREATININE 0.5 mg/dL (0.55-1.3)
[2022-02-13] MEDS: LACTATED RINGERS SOLUTION 1,000 ML/1,000 ML INFUS.BAG IV SCH (15:24)
[2022-02-13] MEDS: POLYETHYLENE GLYCOL (HEALTHYLAX) 3350 17 GM PACKET PO SCH (21:23)
[2022-02-13] MEDS: ATORVASTATIN CA 20 MG TABLET (FP) PO SCH (21:23)
[2022-02-13] MEDS ORDERED: POLYETHYLENE GLYCOL (HEALTHYLAX) 3350 17 GM PACKET PO SCH (22:00)
[2022-02-14] MEDS ORDERED: DEXTROSE 5%-WATER - 50 ML IVPB ONE ×3 (02:03→17:18)
[2022-02-14] MEDS ORDERED: PIPERACILLIN/TAZOBACTAM 3.375 GM VIAL IVPB ONE ×3 (02:03→17:18)
[2022-02-14] MEDS: PIPERACILLIN/TAZOB 3.375 GM 3.375 GM in DEXTROSE 5%-WATER - 50 ML IVPB SCH ×3 (02:20→17:34)
[2022-02-14] MEDS: POLYETHYLENE GLYCOL (HEALTHYLAX) 3350 17 GM PACKET PO SCH ×3 (06:31→21:34)
[2022-02-14] MEDS: AMINO ACIDS/PROTEIN HYDROLYS 30 ML LIQUID.PKT PO SCH ×3 (08:26→17:34)
[2022-02-14 09:40] LABS: BASO % 0.5 % (0-2.0); EOS % 1.6 % (0-4.5); HEMATOCRIT 24.9 % (35.4-49); HEMOGLOBIN 8.2 GM/dL (11.7-16.9); LYMPH % 10.9 % (8-40); MEAN CELL VOLUME 84.7 fl (80-96); MEAN PLT VOLUME 7.3 fl (7.5-11.1); MONO % 3.7 % (3.8-10.2); NEUT % 83.3 % (42.8-82.8); PLATELET COUNT 477 10^3/uL (134-434); RBC 2.94 M/mm3 (4.00-5.60); RDW 16.4 % (11.9-15.9); WHITE BLOOD COUNT 10.3 K/mm3 (4.0-10.0)
[2022-02-14 09:44] LABS: INR 1.09 (0.83-1.09); PROTHROMBIN TIME (PATIENT) 12.6 SEC (9.7-13.0)
[2022-02-14] MEDS: FINASTERIDE 5 MG TABLET (FP) PO SCH (09:51)
[2022-02-14] MEDS: ESCITALOPRAM OXALATE 10 MG TABLET PO SCH (09:51)
[2022-02-14] MEDS: ASCORBIC ACID 500 MG TABLET (FP) PO SCH (09:52)
[2022-02-14] MEDS: MULTIVITAMINS (DAILY MVI) TABLET (FP) PO SCH (09:52)
[2022-02-14] MEDS: PANTOPRAZOLE 40 MG TABLET PO SCH (09:52)
[2022-02-14 10:10] LABS: ALBUMIN 1.8 g/dl (3.4-5.0); CALCIUM 8.7 mg/dL (8.5-10.1)
[2022-02-14 10:11] LABS: BLOOD UREA NITROGEN 13.7 mg/dL (7-18); MAGNESIUM 2.2 mg/dL (1.8-2.4)
[2022-02-14 10:13] LABS: CREATININE 0.5 mg/dL (0.55-1.3)
[2022-02-14 10:14] LABS: PHOSPHOROUS 3.2 mg/dL (2.5-4.9); TOT PROT 6.7 g/dl (6.4-8.2)
[2022-02-14 10:15] LABS: BILIRUBIN,TOTAL 0.5 mg/dL (0.2-1)
[2022-02-14] MEDS: VANCOMYCIN/WATER 1250 MG 1,250 MG/250 ML BAG IVPB SCH (10:51)
[2022-02-14] MEDS ORDERED: LACTULOSE 20 GM/30 ML UDC (FOR ORAL USE ONLY) PO ONE (10:59)
[2022-02-14] MEDS: LACTATED RINGERS SOLUTION 1,000 ML/1,000 ML INFUS.BAG IV SCH (14:05)
[2022-02-14] MEDS: ATORVASTATIN CA 20 MG TABLET (FP) PO SCH (21:34)
[2022-02-15] MEDS ORDERED: DEXTROSE 5%-WATER - 50 ML IVPB ONE ×3 (01:47→17:27)
[2022-02-15] MEDS ORDERED: PIPERACILLIN/TAZOBACTAM 3.375 GM VIAL IVPB ONE ×3 (01:47→17:27)
[2022-02-15] MEDS: PIPERACILLIN/TAZOB 3.375 GM 3.375 GM in DEXTROSE 5%-WATER - 50 ML IVPB SCH ×3 (02:27→17:31)
[2022-02-15] MEDS: ACETAMINOPHEN 325 MG TABLET (FP) PO PRN (02:27)
[2022-02-15] MEDS: LACTATED RINGERS SOLUTION 1,000 ML/1,000 ML INFUS.BAG IV SCH ×2 (05:21→19:42)
[2022-02-15] MEDS: POLYETHYLENE GLYCOL (HEALTHYLAX) 3350 17 GM PACKET PO SCH ×3 (06:35→22:07)
[2022-02-15] MEDS: AMINO ACIDS/PROTEIN HYDROLYS 30 ML LIQUID.PKT PO SCH ×3 (08:32→17:29)
[2022-02-15] MEDS: ASCORBIC ACID 500 MG TABLET (FP) PO SCH (10:20)
[2022-02-15] MEDS: ESCITALOPRAM OXALATE 10 MG TABLET PO SCH (10:20)
[2022-02-15] MEDS: MULTIVITAMINS (DAILY MVI) TABLET (FP) PO SCH (10:20)
[2022-02-15] MEDS: VANCOMYCIN/WATER 1250 MG 1,250 MG/250 ML BAG IVPB SCH (10:21)
[2022-02-15] MEDS: PANTOPRAZOLE 40 MG TABLET PO SCH (10:21)
[2022-02-15] MEDS: FINASTERIDE 5 MG TABLET (FP) PO SCH (10:22)
[2022-02-15 10:57] LABS: BASO % 0.6 % (0-2.0); HEMATOCRIT 24.8 % (35.4-49); HEMOGLOBIN 8.1 GM/dL (11.7-16.9); MCH 28.1 pg (25.7-33.7); MCHC 32.9 g/dl (32.0-35.9); MEAN CELL VOLUME 85.5 fl (80-96); MEAN PLT VOLUME 7.3 fl (7.5-11.1); MONO % 4.3 % (3.8-10.2); NEUT % 80.1 % (42.8-82.8); PLATELET COUNT 494 10^3/uL (134-434); RDW 15.9 % (11.9-15.9); WHITE BLOOD COUNT 9.8 K/mm3 (4.0-10.0)
[2022-02-15 11:13] LABS: CALCIUM 8.4 mg/dL (8.5-10.1)
[2022-02-15 11:14] LABS: BLOOD UREA NITROGEN 13.9 mg/dL (7-18)
[2022-02-15 11:17] LABS: CREATININE 0.4 mg/dL (0.55-1.3)
[2022-02-15] MEDS: ATORVASTATIN CA 20 MG TABLET (FP) PO SCH (22:07)
[2022-02-16] MEDS ORDERED: DEXTROSE 5%-WATER - 50 ML IVPB ONE ×3 (01:46→17:21)
[2022-02-16] MEDS ORDERED: PIPERACILLIN/TAZOBACTAM 3.375 GM VIAL IVPB ONE ×3 (01:46→17:20)
[2022-02-16] MEDS: PIPERACILLIN/TAZOB 3.375 GM 3.375 GM in DEXTROSE 5%-WATER - 50 ML IVPB SCH ×3 (01:55→17:25)
[2022-02-16] MEDS: ACETAMINOPHEN 325 MG TABLET (FP) PO PRN (02:00)
[2022-02-16] MEDS: POLYETHYLENE GLYCOL (HEALTHYLAX) 3350 17 GM PACKET PO SCH ×3 (05:54→21:55)
[2022-02-16] MEDS: AMINO ACIDS/PROTEIN HYDROLYS 30 ML LIQUID.PKT PO SCH ×3 (08:05→17:24)
[2022-02-16] MEDS: VANCOMYCIN/WATER 1250 MG 1,250 MG/250 ML BAG IVPB SCH (09:48)
[2022-02-16] MEDS: ASCORBIC ACID 500 MG TABLET (FP) PO SCH (09:48)
[2022-02-16] MEDS: PANTOPRAZOLE 40 MG TABLET PO SCH (09:48)
[2022-02-16] MEDS: MULTIVITAMINS (DAILY MVI) TABLET (FP) PO SCH (09:48)
[2022-02-16] MEDS: ESCITALOPRAM OXALATE 10 MG TABLET PO SCH (09:48)
[2022-02-16] MEDS: FINASTERIDE 5 MG TABLET (FP) PO SCH (09:49)
[2022-02-16] MEDS ORDERED: PEG 3350/NA SULF BICARB CL/KCL 4000 ML SOLN.RECON PO ONE ×2 (10:00→12:01)
[2022-02-16 10:20] LABS: BASO % 0.5 % (0-2.0); HEMATOCRIT 25.4 % (35.4-49); HEMOGLOBIN 8.4 GM/dL (11.7-16.9); MCH 28.6 pg (25.7-33.7); MCHC 33.2 g/dl (32.0-35.9); MEAN CELL VOLUME 86.1 fl (80-96); MEAN PLT VOLUME 7.3 fl (7.5-11.1); NEUT % 82.5 % (42.8-82.8); PLATELET COUNT 541 10^3/uL (134-434); RBC 2.94 M/mm3 (4.00-5.60); RDW 16.5 % (11.9-15.9); WHITE BLOOD COUNT 10.6 K/mm3 (4.0-10.0)
[2022-02-16 11:11] LABS: CALCIUM 8.5 mg/dL (8.5-10.1)
[2022-02-16 11:12] LABS: ALBUMIN 1.8 g/dl (3.4-5.0); BLOOD UREA NITROGEN 14.1 mg/dL (7-18)
[2022-02-16 11:16] LABS: BILIRUBIN,TOTAL 0.9 mg/dL (0.2-1)
[2022-02-16 11:17] LABS: CREATININE 0.4 mg/dL (0.55-1.3)
[2022-02-16 11:18] LABS: TOT PROT 6.5 g/dl (6.4-8.2)
[2022-02-16] MEDS ORDERED: SODIUM CHLORIDE 0.9% 500 ML INFUS.BAG IV ONE (11:29)
[2022-02-16] MEDS: KCL 10 MEQ IVPB 10 MEQ/100 ML INFUS.BAG IVPB SCH ×2 (12:17→13:18)
[2022-02-16] MEDS: LACTATED RINGERS SOLUTION 1,000 ML/1,000 ML INFUS.BAG IV SCH ×2 (16:10→18:50)
[2022-02-16] MEDS ORDERED: BISACODYL 5 MG TABLET.DR (FP) PO ONE (20:00)
[2022-02-16] MEDS: ATORVASTATIN CA 20 MG TABLET (FP) PO SCH (21:56)
[2022-02-17] MEDS ORDERED: PIPERACILLIN/TAZOBACTAM 3.375 GM VIAL IVPB ONE ×3 (01:21→17:07)
[2022-02-17] MEDS ORDERED: DEXTROSE 5%-WATER - 50 ML IVPB ONE ×3 (01:21→17:07)
[2022-02-17] MEDS: PIPERACILLIN/TAZOB 3.375 GM 3.375 GM in DEXTROSE 5%-WATER - 50 ML IVPB SCH ×3 (01:55→17:09)
[2022-02-17] MEDS: POLYETHYLENE GLYCOL (HEALTHYLAX) 3350 17 GM PACKET PO SCH ×3 (05:45→22:14)
[2022-02-17] MEDS ORDERED: ONDANSETRON 4 MG/2 ML VIAL IVPUSH PRN (09:02)
[2022-02-17] MEDS ORDERED: oxyCODONE HCL 5 MG TABLET PO PRN (09:02)
[2022-02-17] MEDS: FINASTERIDE 5 MG TABLET (FP) PO SCH (10:43)
[2022-02-17] MEDS: ESCITALOPRAM OXALATE 10 MG TABLET PO SCH (10:43)
[2022-02-17] MEDS: MULTIVITAMINS (DAILY MVI) TABLET (FP) PO SCH (10:44)
[2022-02-17] MEDS: ASCORBIC ACID 500 MG TABLET (FP) PO SCH (10:44)
[2022-02-17] MEDS: PANTOPRAZOLE 40 MG TABLET PO SCH (10:44)
[2022-02-17] MEDS: AMINO ACIDS/PROTEIN HYDROLYS 30 ML LIQUID.PKT PO SCH ×3 (10:44→17:09)
[2022-02-17] MEDS: LACTATED RINGERS SOLUTION 1,000 ML/1,000 ML INFUS.BAG IV SCH ×2 (11:25→15:48)
[2022-02-17 13:24] LABS: BASO % 0.6 % (0-2.0); EOS % 1.7 % (0-4.5); HEMATOCRIT 25.5 % (35.4-49); HEMOGLOBIN 8.5 GM/dL (11.7-16.9); LYMPH % 16.8 % (8-40); MCH 28.6 pg (25.7-33.7); MCHC 33.5 g/dl (32.0-35.9); MEAN CELL VOLUME 85.3 fl (80-96); MEAN PLT VOLUME 6.8 fl (7.5-11.1); MONO % 6.6 % (3.8-10.2); NEUT % 74.3 % (42.8-82.8); PLATELET COUNT 579 10^3/uL (134-434); RBC 2.98 M/mm3 (4.00-5.60); RDW 17.1 % (11.9-15.9); WHITE BLOOD COUNT 9.4 K/mm3 (4.0-10.0)
[2022-02-17 13:44] LABS: ALBUMIN 1.8 g/dl (3.4-5.0); CALCIUM 8.7 mg/dL (8.5-10.1)
[2022-02-17 13:45] LABS: BLOOD UREA NITROGEN 10.7 mg/dL (7-18); MAGNESIUM 1.9 mg/dL (1.8-2.4)
[2022-02-17 13:48] LABS: CREATININE 0.4 mg/dL (0.55-1.3); PHOSPHOROUS 2.8 mg/dL (2.5-4.9)
[2022-02-17 13:49] LABS: BILIRUBIN,TOTAL 0.6 mg/dL (0.2-1); TOT PROT 6.4 g/dl (6.4-8.2)
[2022-02-17] MEDS ORDERED: POTASSIUM CHLORIDE TABS 20 MEQ TABLET.ER (FP) PO ONE (15:32)
[2022-02-17] MEDS: ATORVASTATIN CA 20 MG TABLET (FP) PO SCH (22:14)
[2022-02-18] MEDS ORDERED: DEXTROSE 5%-WATER - 50 ML IVPB ONE ×3 (01:15→17:58)
[2022-02-18] MEDS ORDERED: PIPERACILLIN/TAZOBACTAM 3.375 GM VIAL IVPB ONE ×3 (01:15→17:58)
[2022-02-18] MEDS: LACTATED RINGERS SOLUTION 1,000 ML/1,000 ML INFUS.BAG IV SCH ×2 (01:22→16:30)
[2022-02-18] MEDS: PIPERACILLIN/TAZOB 3.375 GM 3.375 GM in DEXTROSE 5%-WATER - 50 ML IVPB SCH ×3 (01:23→18:07)
[2022-02-18] MEDS: POLYETHYLENE GLYCOL (HEALTHYLAX) 3350 17 GM PACKET PO SCH ×3 (06:49→21:32)
[2022-02-18 09:18] LABS: BASO % 0.6 % (0-2.0); EOS % 2.1 % (0-4.5); HEMATOCRIT 24.5 % (35.4-49); HEMOGLOBIN 8.2 GM/dL (11.7-16.9); LYMPH % 16.5 % (8-40); MCH 28.6 pg (25.7-33.7); MCHC 33.3 g/dl (32.0-35.9); MEAN CELL VOLUME 85.8 fl (80-96); MEAN PLT VOLUME 7.2 fl (7.5-11.1); MONO % 5.3 % (3.8-10.2); NEUT % 75.5 % (42.8-82.8); PLATELET COUNT 557 10^3/uL (134-434); RBC 2.85 M/mm3 (4.00-5.60); RDW 17.4 % (11.9-15.9)
[2022-02-18 09:24] LABS: CALCIUM 8.4 mg/dL (8.5-10.1)
[2022-02-18 09:25] LABS: ALBUMIN 1.8 g/dl (3.4-5.0); BLOOD UREA NITROGEN 10.2 mg/dL (7-18)
[2022-02-18 09:28] LABS: CREATININE 0.4 mg/dL (0.55-1.3); PHOSPHOROUS 3.2 mg/dL (2.5-4.9)
[2022-02-18 09:30] LABS: BILIRUBIN,TOTAL 0.4 mg/dL (0.2-1); TOT PROT 6.3 g/dl (6.4-8.2)
[2022-02-18] MEDS: FINASTERIDE 5 MG TABLET (FP) PO SCH (09:31)
[2022-02-18] MEDS: ESCITALOPRAM OXALATE 10 MG TABLET PO SCH (09:31)
[2022-02-18] MEDS: MULTIVITAMINS (DAILY MVI) TABLET (FP) PO SCH (09:31)
[2022-02-18] MEDS: AMINO ACIDS/PROTEIN HYDROLYS 30 ML LIQUID.PKT PO SCH ×3 (09:31→18:07)
[2022-02-18] MEDS: PANTOPRAZOLE 40 MG TABLET PO SCH (09:31)
[2022-02-18] MEDS: ASCORBIC ACID 500 MG TABLET (FP) PO SCH (09:31)
[2022-02-18] MEDS: ENOXAPARIN NA (PORCINE) 40 MG/0.4 ML DISP.SYRIN SQ SCH (09:32)
[2022-02-18] MEDS: VANCOMYCIN 1 GRAM (PRE-DOCKED) 1,000 MG/250 ML BAG IVPB SCH (16:31)
[2022-02-18] MEDS: ATORVASTATIN CA 20 MG TABLET (FP) PO SCH (21:33)
[2022-02-19] MEDS ORDERED: PIPERACILLIN/TAZOBACTAM 3.375 GM VIAL IVPB ONE ×3 (01:00→17:26)
[2022-02-19] MEDS ORDERED: DEXTROSE 5%-WATER - 50 ML IVPB ONE ×3 (01:00→17:26)
[2022-02-19] MEDS: PIPERACILLIN/TAZOB 3.375 GM 3.375 GM in DEXTROSE 5%-WATER - 50 ML IVPB SCH ×3 (01:22→17:33)
[2022-02-19] MEDS: POLYETHYLENE GLYCOL (HEALTHYLAX) 3350 17 GM PACKET PO SCH ×3 (06:18→21:56)
[2022-02-19 09:10] LABS: BASO % 0.6 % (0-2.0); EOS % 2.3 % (0-4.5); HEMATOCRIT 24.8 % (35.4-49); HEMOGLOBIN 8.3 GM/dL (11.7-16.9); LYMPH % 16.1 % (8-40); MCH 28.6 pg (25.7-33.7); MCHC 33.4 g/dl (32.0-35.9); MEAN CELL VOLUME 85.6 fl (80-96); MEAN PLT VOLUME 6.8 fl (7.5-11.1); MONO % 5.7 % (3.8-10.2); NEUT % 75.3 % (42.8-82.8); PLATELET COUNT 542 10^3/uL (134-434); RDW 17.7 % (11.9-15.9); WHITE BLOOD COUNT 7.9 K/mm3 (4.0-10.0)
[2022-02-19 09:12] LABS: CALCIUM 8.4 mg/dL (8.5-10.1)
[2022-02-19 09:13] LABS: ALBUMIN 1.8 g/dl (3.4-5.0); BLOOD UREA NITROGEN 10.1 mg/dL (7-18); MAGNESIUM 1.9 mg/dL (1.8-2.4)
[2022-02-19] MEDS: ESCITALOPRAM OXALATE 10 MG TABLET PO SCH (09:14)
[2022-02-19] MEDS: PANTOPRAZOLE 40 MG TABLET PO SCH (09:14)
[2022-02-19] MEDS: AMINO ACIDS/PROTEIN HYDROLYS 30 ML LIQUID.PKT PO SCH ×3 (09:14→17:33)
[2022-02-19] MEDS: ASCORBIC ACID 500 MG TABLET (FP) PO SCH (09:14)
[2022-02-19] MEDS: MULTIVITAMINS (DAILY MVI) TABLET (FP) PO SCH (09:14)
[2022-02-19] MEDS: FINASTERIDE 5 MG TABLET (FP) PO SCH (09:14)
[2022-02-19 09:16] LABS: CREATININE 0.4 mg/dL (0.55-1.3); PHOSPHOROUS 3.4 mg/dL (2.5-4.9)
[2022-02-19 09:18] LABS: BILIRUBIN,TOTAL 0.4 mg/dL (0.2-1); TOT PROT 6.4 g/dl (6.4-8.2)
[2022-02-19] MEDS: COLLAGENASE CLOSTRIDIUM HIST. 30 GRAMS TUBE TP SCH (15:26)
[2022-02-19] MEDS: LACTATED RINGERS SOLUTION 1,000 ML/1,000 ML INFUS.BAG IV SCH (15:27)
[2022-02-19] MEDS: VANCOMYCIN 1 GRAM (PRE-DOCKED) 1,000 MG/250 ML BAG IVPB SCH (15:27)
[2022-02-19] MEDS: ATORVASTATIN CA 20 MG TABLET (FP) PO SCH (21:56)
[2022-02-19] MEDS: HEPARIN NA (PORCINE) 5,000 UNITS/ML 1ML VIAL SQ SCH (21:56)
[2022-02-20] MEDS ORDERED: PIPERACILLIN/TAZOBACTAM 3.375 GM VIAL IVPB ONE ×3 (02:17→18:54)
[2022-02-20] MEDS ORDERED: DEXTROSE 5%-WATER - 50 ML IVPB ONE ×3 (02:17→18:54)
[2022-02-20] MEDS: PIPERACILLIN/TAZOB 3.375 GM 3.375 GM in DEXTROSE 5%-WATER - 50 ML IVPB SCH ×3 (02:21→19:00)
[2022-02-20] MEDS: POLYETHYLENE GLYCOL (HEALTHYLAX) 3350 17 GM PACKET PO SCH ×3 (05:30→21:11)
[2022-02-20] MEDS: MULTIVITAMINS (DAILY MVI) TABLET (FP) PO SCH (09:36)
[2022-02-20] MEDS: LACTATED RINGERS SOLUTION 1,000 ML/1,000 ML INFUS.BAG IV SCH ×2 (09:36→17:02)
[2022-02-20] MEDS: AMINO ACIDS/PROTEIN HYDROLYS 30 ML LIQUID.PKT PO SCH ×3 (09:36→19:00)
[2022-02-20] MEDS: HEPARIN NA (PORCINE) 5,000 UNITS/ML 1ML VIAL SQ SCH ×2 (09:37→21:09)
[2022-02-20] MEDS: ESCITALOPRAM OXALATE 10 MG TABLET PO SCH (09:37)
[2022-02-20] MEDS: FINASTERIDE 5 MG TABLET (FP) PO SCH (09:37)
[2022-02-20] MEDS: PANTOPRAZOLE 40 MG TABLET PO SCH (09:37)
[2022-02-20] MEDS: ASCORBIC ACID 500 MG TABLET (FP) PO SCH (09:37)
[2022-02-20 11:10] LABS: ALBUMIN 1.8 g/dl (3.4-5.0); BLOOD UREA NITROGEN 10.5 mg/dL (7-18); CALCIUM 8.6 mg/dL (8.5-10.1)
[2022-02-20 11:13] LABS: CREATININE 0.5 mg/dL (0.55-1.3)
[2022-02-20 11:14] LABS: PHOSPHOROUS 3.2 mg/dL (2.5-4.9)
[2022-02-20 11:15] LABS: BILIRUBIN,TOTAL 0.4 mg/dL (0.2-1)
[2022-02-20 11:17] LABS: TOT PROT 6.4 g/dl (6.4-8.2)
[2022-02-20 11:35] LABS: BASO % 0.7 % (0-2.0); EOS % 2.6 % (0-4.5); HEMATOCRIT 26.1 % (35.4-49); HEMOGLOBIN 8.6 GM/dL (11.7-16.9); LYMPH % 17.2 % (8-40); MCH 28.5 pg (25.7-33.7); MEAN CELL VOLUME 86.3 fl (80-96); MONO % 5.8 % (3.8-10.2); NEUT % 73.7 % (42.8-82.8); PLATELET COUNT 504 10^3/uL (134-434); RBC 3.02 M/mm3 (4.00-5.60); RDW 18.3 % (11.9-15.9); WHITE BLOOD COUNT 6.9 K/mm3 (4.0-10.0)
[2022-02-20] MEDS: VANCOMYCIN 1 GRAM (PRE-DOCKED) 1,000 MG/250 ML BAG IVPB SCH (13:31)
[2022-02-20] MEDS: COLLAGENASE CLOSTRIDIUM HIST. 30 GRAMS TUBE TP SCH (17:01)
[2022-02-20] MEDS: ATORVASTATIN CA 20 MG TABLET (FP) PO SCH (21:09)
[2022-02-21] MEDS ORDERED: PIPERACILLIN/TAZOBACTAM 3.375 GM VIAL IVPB ONE ×3 (01:49→17:13)
[2022-02-21] MEDS ORDERED: DEXTROSE 5%-WATER - 50 ML IVPB ONE ×3 (01:49→17:13)
[2022-02-21] MEDS: PIPERACILLIN/TAZOB 3.375 GM 3.375 GM in DEXTROSE 5%-WATER - 50 ML IVPB SCH ×3 (01:52→17:19)
[2022-02-21] MEDS: POLYETHYLENE GLYCOL (HEALTHYLAX) 3350 17 GM PACKET PO SCH ×3 (05:43→21:56)
[2022-02-21] MEDS: AMINO ACIDS/PROTEIN HYDROLYS 30 ML LIQUID.PKT PO SCH ×3 (08:18→17:20)
[2022-02-21] MEDS: MULTIVITAMINS (DAILY MVI) TABLET (FP) PO SCH (09:26)
[2022-02-21] MEDS: ASCORBIC ACID 500 MG TABLET (FP) PO SCH (09:26)
[2022-02-21] MEDS: ESCITALOPRAM OXALATE 10 MG TABLET PO SCH (09:26)
[2022-02-21] MEDS: PANTOPRAZOLE 40 MG TABLET PO SCH (09:26)
[2022-02-21] MEDS: FINASTERIDE 5 MG TABLET (FP) PO SCH (09:26)
[2022-02-21] MEDS: HEPARIN NA (PORCINE) 5,000 UNITS/ML 1ML VIAL SQ SCH ×2 (09:27→21:55)
[2022-02-21] MEDS: COLLAGENASE CLOSTRIDIUM HIST. 30 GRAMS TUBE TP SCH (10:15)
[2022-02-21] MEDS: VANCOMYCIN 1 GRAM (PRE-DOCKED) 1,000 MG/250 ML BAG IVPB SCH (13:43)
[2022-02-21] MEDS: LACTATED RINGERS SOLUTION 1,000 ML/1,000 ML INFUS.BAG IV SCH (17:20)
[2022-02-21] MEDS: ATORVASTATIN CA 20 MG TABLET (FP) PO SCH (21:56)
[2022-02-22] MEDS ORDERED: PIPERACILLIN/TAZOBACTAM 3.375 GM VIAL IVPB ONE ×3 (00:50→17:26)
[2022-02-22] MEDS ORDERED: DEXTROSE 5%-WATER - 50 ML IVPB ONE ×3 (00:51→17:26)
[2022-02-22] MEDS: PIPERACILLIN/TAZOB 3.375 GM 3.375 GM in DEXTROSE 5%-WATER - 50 ML IVPB SCH ×3 (01:01→17:38)
[2022-02-22] MEDS: POLYETHYLENE GLYCOL (HEALTHYLAX) 3350 17 GM PACKET PO SCH ×3 (05:55→21:51)
[2022-02-22] MEDS: LACTATED RINGERS SOLUTION 1,000 ML/1,000 ML INFUS.BAG IV SCH ×2 (05:55→17:37)
[2022-02-22] MEDS ORDERED: INSULIN (NOVOLOG) ASPART 100 UNITS/ML 10ML VIAL ONE (07:01)
[2022-02-22] MEDS: AMINO ACIDS/PROTEIN HYDROLYS 30 ML LIQUID.PKT PO SCH ×3 (08:29→17:38)
[2022-02-22 08:36] LABS: BASO % 1.1 % (0-2.0); EOS % 3.8 % (0-4.5); HEMATOCRIT 23.6 % (35.4-49); HEMOGLOBIN 7.7 GM/dL (11.7-16.9); LYMPH % 22.6 % (8-40); MCH 28.5 pg (25.7-33.7); MCHC 32.8 g/dl (32.0-35.9); MEAN PLT VOLUME 7.2 fl (7.5-11.1); MONO % 5.9 % (3.8-10.2); NEUT % 66.6 % (42.8-82.8); PLATELET COUNT 460 10^3/uL (134-434); RBC 2.71 M/mm3 (4.00-5.60); RDW 18.4 % (11.9-15.9); WHITE BLOOD COUNT 5.6 K/mm3 (4.0-10.0)
[2022-02-22 08:54] LABS: CALCIUM 8.3 mg/dL (8.5-10.1)
[2022-02-22 08:55] LABS: ALBUMIN 1.8 g/dl (3.4-5.0); BLOOD UREA NITROGEN 13.2 mg/dL (7-18)
[2022-02-22 08:58] LABS: CREATININE 0.4 mg/dL (0.55-1.3)
[2022-02-22 09:00] LABS: BILIRUBIN,TOTAL 0.2 mg/dL (0.2-1); TOT PROT 6.2 g/dl (6.4-8.2)
[2022-02-22] MEDS: ASCORBIC ACID 500 MG TABLET (FP) PO SCH (09:15)
[2022-02-22] MEDS: ESCITALOPRAM OXALATE 10 MG TABLET PO SCH (09:15)
[2022-02-22] MEDS: HEPARIN NA (PORCINE) 5,000 UNITS/ML 1ML VIAL SQ SCH ×2 (09:15→21:44)
[2022-02-22] MEDS: FINASTERIDE 5 MG TABLET (FP) PO SCH (09:15)
[2022-02-22] MEDS: MULTIVITAMINS (DAILY MVI) TABLET (FP) PO SCH (09:15)
[2022-02-22] MEDS: PANTOPRAZOLE 40 MG TABLET PO SCH (09:15)
[2022-02-22] MEDS: COLLAGENASE CLOSTRIDIUM HIST. 30 GRAMS TUBE TP SCH (09:26)
[2022-02-22] MEDS: DAPTOMYCIN 500 MG in SODIUM CHLORIDE 50 ML IVPB SCH (12:41)
[2022-02-23] MEDS ORDERED: PIPERACILLIN/TAZOBACTAM 3.375 GM VIAL IVPB ONE ×2 (01:18→09:52)
[2022-02-23] MEDS ORDERED: DEXTROSE 5%-WATER - 50 ML IVPB ONE ×2 (01:19→09:52)
[2022-02-23] MEDS: PIPERACILLIN/TAZOB 3.375 GM 3.375 GM in DEXTROSE 5%-WATER - 50 ML IVPB SCH (01:26)
[2022-02-23] MEDS: POLYETHYLENE GLYCOL (HEALTHYLAX) 3350 17 GM PACKET PO SCH ×2 (06:14→14:21)
[2022-02-23] MEDS: AMINO ACIDS/PROTEIN HYDROLYS 30 ML LIQUID.PKT PO SCH ×3 (08:16→17:18)
[2022-02-23] MEDS: DAPTOMYCIN 500 MG in SODIUM CHLORIDE 50 ML IVPB SCH (09:56)
[2022-02-23] MEDS: HEPARIN NA (PORCINE) 5,000 UNITS/ML 1ML VIAL SQ SCH (09:58)
[2022-02-23] MEDS: ASCORBIC ACID 500 MG TABLET (FP) PO SCH (09:58)
[2022-02-23] MEDS: MULTIVITAMINS (DAILY MVI) TABLET (FP) PO SCH (09:58)
[2022-02-23] MEDS: PANTOPRAZOLE 40 MG TABLET PO SCH (09:58)
[2022-02-23] MEDS: ESCITALOPRAM OXALATE 10 MG TABLET PO SCH (09:58)
[2022-02-23] MEDS: FINASTERIDE 5 MG TABLET (FP) PO SCH (09:58)
[2022-02-23] MEDS: COLLAGENASE CLOSTRIDIUM HIST. 30 GRAMS TUBE TP SCH (10:04)
[2022-02-23 11:01] LABS: EOS % 3.5 % (0-4.5); HEMATOCRIT 26.6 % (35.4-49); HEMOGLOBIN 8.9 GM/dL (11.7-16.9); LYMPH % 18.9 % (8-40); MCHC 33.3 g/dl (32.0-35.9); MEAN CELL VOLUME 87.2 fl (80-96); MEAN PLT VOLUME 7.1 fl (7.5-11.1); MONO % 5.8 % (3.8-10.2); NEUT % 70.8 % (42.8-82.8); PLATELET COUNT 467 10^3/uL (134-434); RBC 3.06 M/mm3 (4.00-5.60); RDW 18.8 % (11.9-15.9); WHITE BLOOD COUNT 5.8 K/mm3 (4.0-10.0)
[2022-02-23] MEDS: IMIPENEM/CILASTATIN SODIUM 500 MG in SODIUM CHLORIDE 100 ML IVPB SCH ×2 (11:31→17:44)
[2022-02-23 12:00] LABS: BLOOD UREA NITROGEN 13.8 mg/dL (7-18); CALCIUM 8.7 mg/dL (8.5-10.1); MAGNESIUM 1.9 mg/dL (1.8-2.4)
[2022-02-23 12:05] LABS: CREATININE 0.5 mg/dL (0.55-1.3); PHOSPHOROUS 3.5 mg/dL (2.5-4.9)
[2022-02-23] MEDS: LACTATED RINGERS SOLUTION 1,000 ML/1,000 ML INFUS.BAG IV SCH (14:25)
[2022-02-23 15:00] VITALS: BP 135/73; PULSE 65; TEMP 97.7
== END 2022-02-23 21:19 | DRG 853 ==
LOC: JER 12:40 → JERBED 15:46 → J8W 02-11 04:08
PROVIDERS: ADMIT Internal Medicine
PROC: 0DB98ZX Excision of Duodenum, Via Natural or Artificial Opening Endoscopic, Diagnostic (ICD-10-PCS; 2022-02-17)
PROC: 0DB68ZX Excision of Stomach, Via Natural or Artificial Opening Endoscopic, Diagnostic (ICD-10-PCS; 2022-02-17)
PROC: 0DJD8ZZ Inspection of Lower Intestinal Tract, Via Natural or Artificial Opening Endoscopic (ICD-10-PCS; 2022-02-17)
PROC: 0JBP0ZZ Excision of Left Lower Leg Subcutaneous Tissue and Fascia, Open Approach (ICD-10-PCS; principal; 2022-02-19)
PROC: 0JBL0ZZ Excision of Right Upper Leg Subcutaneous Tissue and Fascia, Open Approach (ICD-10-PCS; 2022-02-19)
DX: A41.9 Sepsis, unspecified organism (principal); L89.313 Pressure ulcer of right buttock, stage 3; L89.894 Pressure ulcer of other site, stage 4; G82.20 Paraplegia, unspecified; N39.0 Urinary tract infection, site not specified; K21.9 Gastro-esophageal reflux disease without esophagitis; N40.0 Benign prostatic hyperplasia without lower urinary tract symptoms; F32.A Depression, unspecified; K59.09 Other constipation; E88.09 Other disorders of plasma-protein metabolism, not elsewhere classified; B96.20 Unspecified Escherichia coli [E. coli] as the cause of diseases classified elsewhere; K31.7 Polyp of stomach and duodenum; D63.8 Anemia in other chronic diseases classified elsewhere
CPT/HCPCS: 36415; 36430; 72170-TC-FY; 73590-TC-LT-FY; 74177-TC; 80048; 80053; 81003; 82272; 82550; 82607; 82728; 82746; 83540; 83550; 83605; 83615; 83735; 84100; 85025; 85610; 85651; 85730; 86140; 86850; 86870; 86900; 86901; 86902; 86922; 87040; 87070; 87077; 87081; 87086; 87186; 87205; 88305-TC; 93005; 93010; 93306-TC; 97161-GP; 99285-25; C9803-CS; G0463-25; G0480; J0878; J1644; P9058; U0003; U0005

== ENCOUNTER 2022-08-11 12:05 | Inpatient (IN) | payer OTHER, BC ==
[2022-08-11 12:17] VITALS: BMI 24.4
[2022-08-11 15:36] LABS: EOS % 1.4 % (0-4.5); HEMATOCRIT 29.5 % (35.4-49); HEMOGLOBIN 9.1 GM/dL (11.7-16.9); LYMPH % 15.7 % (8-40); MCH 26.8 pg (25.7-33.7); MEAN CELL VOLUME 86.4 fl (80-96); MEAN PLT VOLUME 7.2 fl (7.5-11.1); MONO % 5.6 % (3.8-10.2); NEUT % 76.3 % (42.8-82.8); PLATELET COUNT 439 10^3/uL (134-434); RBC 3.41 M/mm3 (4.00-5.60); RDW 17.9 % (11.9-15.9); WHITE BLOOD COUNT 7.8 K/mm3 (4.0-10.0)
[2022-08-11 15:43] LABS: INR 1.14 (0.83-1.09); PROTHROMBIN TIME (PATIENT) 13.1 SEC (9.7-13.0)
[2022-08-11 15:45] LABS: ACTIVATED PTT 35.4 SECONDS (25.2-36.5)
[2022-08-11 15:57] LABS: ALBUMIN 2.6 g/dl (3.4-5.0); CALCIUM 8.9 mg/dL (8.5-10.1)
[2022-08-11 15:58] LABS: BLOOD UREA NITROGEN 7.8 mg/dL (7-18)
[2022-08-11 16:01] LABS: CREATININE 0.4 mg/dL (0.55-1.3)
[2022-08-11 16:02] LABS: BILIRUBIN,TOTAL 0.5 mg/dL (0.2-1); TOT PROT 7.9 g/dl (6.4-8.2)
[2022-08-11 16:37] LABS: ERYTHROCYTE SEDIMENTATION RATE 102 mm/hr (0-20)
[2022-08-11] MEDS: LACTATED RINGERS SOLUTION 1,000 ML IV SCH (20:55)
[2022-08-11] MEDS: PIPERACILLIN/TAZOB 3.375 GM 3.375 GM in DEXTROSE 5%-WATER - 50 ML IVPB SCH (20:55)
[2022-08-12] MEDS ORDERED: BACLOFEN 10 MG TABLET (FP) PO ONE (01:37)
[2022-08-12] MEDS ORDERED: GABAPENTIN 300 MG CAPSULE PO ONE (01:38)
[2022-08-12] MEDS: PIPERACILLIN/TAZOB 3.375 GM 3.375 GM in DEXTROSE 5%-WATER - 50 ML IVPB SCH ×5 (04:49→20:03)
[2022-08-12 08:32] LABS: BASO % 0.6 % (0-2.0); EOS % 2.7 % (0-4.5); HEMATOCRIT 27.2 % (35.4-49); HEMOGLOBIN 8.6 GM/dL (11.7-16.9); LYMPH % 17.3 % (8-40); MCH 27.1 pg (25.7-33.7); MCHC 31.7 g/dl (32.0-35.9); MEAN CELL VOLUME 85.5 fl (80-96); MEAN PLT VOLUME 7.3 fl (7.5-11.1); MONO % 5.5 % (3.8-10.2); NEUT % 73.9 % (42.8-82.8); PLATELET COUNT 413 10^3/uL (134-434); RBC 3.18 M/mm3 (4.00-5.60); RDW 17.5 % (11.9-15.9); WHITE BLOOD COUNT 5.8 K/mm3 (4.0-10.0)
[2022-08-12 08:56] LABS: ALBUMIN 2.4 g/dl (3.4-5.0); BLOOD UREA NITROGEN 8.8 mg/dL (7-18); CALCIUM 8.7 mg/dL (8.5-10.1); MAGNESIUM 2.1 mg/dL (1.8-2.4)
[2022-08-12 08:58] LABS: CREATININE 0.4 mg/dL (0.55-1.3)
[2022-08-12 09:00] LABS: BILIRUBIN,TOTAL 0.7 mg/dL (0.2-1); TOT PROT 7.2 g/dl (6.4-8.2)
[2022-08-12] MEDS: ESCITALOPRAM OXALATE 10 MG TABLET PO SCH (11:07)
[2022-08-12] MEDS: FINASTERIDE 5 MG TABLET (FP) PO SCH (11:07)
[2022-08-12] MEDS: MULTIVITAMINS (DAILY MVI) TABLET (FP) PO SCH (11:08)
[2022-08-12] MEDS: ENOXAPARIN NA (PORCINE) 40 MG/0.4 ML DISP.SYRIN SQ SCH (11:08)
[2022-08-12] MEDS: POLYETHYLENE GLYCOL (HEALTHYLAX) 3350 17 GM PACKET PO SCH ×2 (14:30→21:35)
[2022-08-12 18:28] LABS: EPI CELLS 11 /uL (0-25.1); HYALINE CASTS 1 /uL (0-3.1); PH,URINE 6.5 (5.0-8.0); URINE APPEARANCE CLOUDY; URINE BILIRUBIN NEGATIVE (NEGATIVE); URINE COLOR ORANGE; URINE GLUCOSE (UA) NEGATIVE (NEGATIVE); URINE KETONE NEGATIVE (NEGATIVE); URINE LEUK ESTERASE 3+ (NEGATIVE); URINE NITRITE POSITIVE (NEGATIVE); URINE PROTEIN 1+ (NEGATIVE); URINE RBC 188 /uL (0-23.9); URINE UROBILINOGEN 0.2 mg/dL (0.2-1.0); URINE WBC 1933 /uL (0-25.8)
[2022-08-12] MEDS: LACTATED RINGERS SOLUTION 1,000 ML IV SCH (20:02)
[2022-08-12] MEDS: BACLOFEN 10 MG TABLET (FP) PO SCH (21:35)
[2022-08-12] MEDS: ATORVASTATIN CA 20 MG TABLET (FP) PO SCH (21:35)
[2022-08-13] MEDS: LACTATED RINGERS SOLUTION 1,000 ML IV SCH (00:28)
[2022-08-13] MEDS: PIPERACILLIN/TAZOB 3.375 GM 3.375 GM in DEXTROSE 5%-WATER - 50 ML IVPB SCH ×3 (04:08→20:32)
[2022-08-13] MEDS: POLYETHYLENE GLYCOL (HEALTHYLAX) 3350 17 GM PACKET PO SCH (06:11)
[2022-08-13 08:12] LABS: BASO % 0.7 % (0-2.0); EOS % 3.7 % (0-4.5); HEMATOCRIT 26.1 % (35.4-49); HEMOGLOBIN 8.2 GM/dL (11.7-16.9); MCH 26.8 pg (25.7-33.7); MCHC 31.4 g/dl (32.0-35.9); MEAN CELL VOLUME 85.3 fl (80-96); MONO % 7.5 % (3.8-10.2); NEUT % 69.1 % (42.8-82.8); PLATELET COUNT 344 10^3/uL (134-434); RBC 3.06 M/mm3 (4.00-5.60); WHITE BLOOD COUNT 4.6 K/mm3 (4.0-10.0)
[2022-08-13 08:40] LABS: CALCIUM 8.6 mg/dL (8.5-10.1)
[2022-08-13 08:42] LABS: ALBUMIN 2.2 g/dl (3.4-5.0); BLOOD UREA NITROGEN 8.7 mg/dL (7-18); MAGNESIUM 2.1 mg/dL (1.8-2.4)
[2022-08-13 08:44] LABS: CREATININE 0.4 mg/dL (0.55-1.3)
[2022-08-13 08:46] LABS: BILIRUBIN,TOTAL 0.5 mg/dL (0.2-1); TOT PROT 6.9 g/dl (6.4-8.2)
[2022-08-13] MEDS: MULTIVITAMINS (DAILY MVI) TABLET (FP) PO SCH (10:54)
[2022-08-13] MEDS: ESCITALOPRAM OXALATE 10 MG TABLET PO SCH (10:54)
[2022-08-13] MEDS: ENOXAPARIN NA (PORCINE) 40 MG/0.4 ML DISP.SYRIN SQ SCH (10:54)
[2022-08-13] MEDS: LACTULOSE 20 GM/30 ML UDC (FOR ORAL USE ONLY) PO PRN ×3 (10:55→21:13)
[2022-08-13] MEDS: FINASTERIDE 5 MG TABLET (FP) PO SCH (10:55)
[2022-08-13] MEDS: ASCORBIC ACID 500 MG TABLET (FP) PO SCH (15:18)
[2022-08-13] MEDS: VITAMIN A 10,000 UNITS (3000 MCG) CAPSULE PO SCH (15:18)
[2022-08-13] MEDS: AMINO ACIDS/PROTEIN HYDROLYS 30 ML LIQUID.PKT PO SCH (16:40)
[2022-08-13] MEDS: ATORVASTATIN CA 20 MG TABLET (FP) PO SCH (21:12)
[2022-08-13] MEDS: BACLOFEN 10 MG TABLET (FP) PO SCH (21:12)
[2022-08-14] MEDS: PIPERACILLIN/TAZOB 3.375 GM 3.375 GM in DEXTROSE 5%-WATER - 50 ML IVPB SCH ×3 (04:35→20:31)
[2022-08-14] MEDS: AMINO ACIDS/PROTEIN HYDROLYS 30 ML LIQUID.PKT PO SCH ×3 (07:59→17:27)
[2022-08-14] MEDS: VITAMIN A 10,000 UNITS (3000 MCG) CAPSULE PO SCH (09:43)
[2022-08-14] MEDS: DOCUSATE SODIUM 100 MG CAPSULE (FP) PO SCH (09:43)
[2022-08-14] MEDS: ENOXAPARIN NA (PORCINE) 40 MG/0.4 ML DISP.SYRIN SQ SCH (09:43)
[2022-08-14] MEDS: ASCORBIC ACID 500 MG TABLET (FP) PO SCH (09:44)
[2022-08-14] MEDS: ESCITALOPRAM OXALATE 10 MG TABLET PO SCH (09:44)
[2022-08-14] MEDS: MULTIVITAMINS (DAILY MVI) TABLET (FP) PO SCH (09:44)
[2022-08-14] MEDS: FINASTERIDE 5 MG TABLET (FP) PO SCH (09:44)
[2022-08-14 11:16] LABS: BASO % 0.9 % (0-2.0); EOS % 2.6 % (0-4.5); HEMATOCRIT 27.5 % (35.4-49); HEMOGLOBIN 8.8 GM/dL (11.7-16.9); LYMPH % 23.5 % (8-40); MCH 27.2 pg (25.7-33.7); MEAN CELL VOLUME 85.2 fl (80-96); MEAN PLT VOLUME 7.2 fl (7.5-11.1); MONO % 7.7 % (3.8-10.2); NEUT % 65.3 % (42.8-82.8); PLATELET COUNT 393 10^3/uL (134-434); RBC 3.23 M/mm3 (4.00-5.60); WHITE BLOOD COUNT 6.3 K/mm3 (4.0-10.0)
[2022-08-14 11:40] LABS: ALBUMIN 2.4 g/dl (3.4-5.0); BLOOD UREA NITROGEN 10.9 mg/dL (7-18); MAGNESIUM 2.3 mg/dL (1.8-2.4)
[2022-08-14 11:44] LABS: CREATININE 0.5 mg/dL (0.55-1.3)
[2022-08-14 11:46] LABS: BILIRUBIN,TOTAL 0.4 mg/dL (0.2-1); TOT PROT 6.9 g/dl (6.4-8.2)
[2022-08-14] MEDS ORDERED: GABAPENTIN 300 MG CAPSULE PO ONE (20:51)
[2022-08-14] MEDS: ATORVASTATIN CA 20 MG TABLET (FP) PO SCH (21:44)
[2022-08-14] MEDS: LACTULOSE 20 GM/30 ML UDC (FOR ORAL USE ONLY) PO PRN (21:44)
[2022-08-14] MEDS: BACLOFEN 10 MG TABLET (FP) PO SCH (21:44)
[2022-08-15] MEDS: PIPERACILLIN/TAZOB 3.375 GM 3.375 GM in DEXTROSE 5%-WATER - 50 ML IVPB SCH ×3 (03:20→20:56)
[2022-08-15] MEDS: ESCITALOPRAM OXALATE 10 MG TABLET PO SCH (10:23)
[2022-08-15] MEDS: ASCORBIC ACID 500 MG TABLET (FP) PO SCH (10:23)
[2022-08-15] MEDS: DOCUSATE SODIUM 100 MG CAPSULE (FP) PO SCH (10:23)
[2022-08-15] MEDS: MULTIVITAMINS (DAILY MVI) TABLET (FP) PO SCH (10:23)
[2022-08-15] MEDS: VITAMIN A 10,000 UNITS (3000 MCG) CAPSULE PO SCH (10:24)
[2022-08-15] MEDS: FINASTERIDE 5 MG TABLET (FP) PO SCH (10:24)
[2022-08-15] MEDS: ENOXAPARIN NA (PORCINE) 40 MG/0.4 ML DISP.SYRIN SQ SCH (10:24)
[2022-08-15] MEDS: AMINO ACIDS/PROTEIN HYDROLYS 30 ML LIQUID.PKT PO SCH ×3 (10:25→16:34)
[2022-08-15 11:36] LABS: EOS % 3.2 % (0-4.5); HEMATOCRIT 28.7 % (35.4-49); HEMOGLOBIN 9.1 GM/dL (11.7-16.9); LYMPH % 24.5 % (8-40); MCH 27.4 pg (25.7-33.7); MCHC 31.7 g/dl (32.0-35.9); MEAN CELL VOLUME 86.3 fl (80-96); MEAN PLT VOLUME 7.4 fl (7.5-11.1); MONO % 6.6 % (3.8-10.2); NEUT % 64.7 % (42.8-82.8); PLATELET COUNT 411 10^3/uL (134-434); RBC 3.33 M/mm3 (4.00-5.60)
[2022-08-15 12:04] LABS: ALBUMIN 2.4 g/dl (3.4-5.0); BLOOD UREA NITROGEN 15.5 mg/dL (7-18); MAGNESIUM 2.2 mg/dL (1.8-2.4)
[2022-08-15 12:07] LABS: CREATININE 0.4 mg/dL (0.55-1.3)
[2022-08-15 12:09] LABS: BILIRUBIN,TOTAL 0.4 mg/dL (0.2-1); TOT PROT 7.4 g/dl (6.4-8.2)
[2022-08-15] MEDS: BACLOFEN 10 MG TABLET (FP) PO SCH (21:54)
[2022-08-15] MEDS: ATORVASTATIN CA 20 MG TABLET (FP) PO SCH (21:54)
[2022-08-16] MEDS: PIPERACILLIN/TAZOB 3.375 GM 3.375 GM in DEXTROSE 5%-WATER - 50 ML IVPB SCH ×3 (04:12→21:09)
[2022-08-16 08:39] LABS: BASO % 0.9 % (0-2.0); EOS % 3.7 % (0-4.5); HEMATOCRIT 27.9 % (35.4-49); HEMOGLOBIN 8.7 GM/dL (11.7-16.9); LYMPH % 24.1 % (8-40); MCHC 31.2 g/dl (32.0-35.9); MEAN CELL VOLUME 86.6 fl (80-96); MEAN PLT VOLUME 7.4 fl (7.5-11.1); MONO % 5.9 % (3.8-10.2); NEUT % 65.4 % (42.8-82.8); PLATELET COUNT 403 10^3/uL (134-434); RBC 3.23 M/mm3 (4.00-5.60); RDW 18.2 % (11.9-15.9); WHITE BLOOD COUNT 6.1 K/mm3 (4.0-10.0)
[2022-08-16] MEDS: AMINO ACIDS/PROTEIN HYDROLYS 30 ML LIQUID.PKT PO SCH ×3 (08:55→16:36)
[2022-08-16] MEDS: FINASTERIDE 5 MG TABLET (FP) PO SCH (09:01)
[2022-08-16] MEDS: MULTIVITAMINS (DAILY MVI) TABLET (FP) PO SCH (09:01)
[2022-08-16] MEDS: ENOXAPARIN NA (PORCINE) 40 MG/0.4 ML DISP.SYRIN SQ SCH (09:01)
[2022-08-16] MEDS: DOCUSATE SODIUM 100 MG CAPSULE (FP) PO SCH (09:01)
[2022-08-16] MEDS: ESCITALOPRAM OXALATE 10 MG TABLET PO SCH (09:01)
[2022-08-16] MEDS: VITAMIN A 10,000 UNITS (3000 MCG) CAPSULE PO SCH (09:01)
[2022-08-16] MEDS: ASCORBIC ACID 500 MG TABLET (FP) PO SCH (09:01)
[2022-08-16 09:02] LABS: ALBUMIN 2.6 g/dl (3.4-5.0); BLOOD UREA NITROGEN 23.6 mg/dL (7-18); CALCIUM 8.9 mg/dL (8.5-10.1); MAGNESIUM 2.2 mg/dL (1.8-2.4)
[2022-08-16 09:06] LABS: BILIRUBIN,TOTAL 0.4 mg/dL (0.2-1); TOT PROT 7.5 g/dl (6.4-8.2)
[2022-08-16 09:09] LABS: CREATININE 0.5 mg/dL (0.55-1.3)
[2022-08-16] MEDS: BACLOFEN 10 MG TABLET (FP) PO SCH (21:09)
[2022-08-16] MEDS: ATORVASTATIN CA 20 MG TABLET (FP) PO SCH (21:09)
[2022-08-16] MEDS: GABAPENTIN 300 MG CAPSULE PO SCH (21:11)
[2022-08-17] MEDS: PIPERACILLIN/TAZOB 3.375 GM 3.375 GM in DEXTROSE 5%-WATER - 50 ML IVPB SCH ×3 (03:40→20:48)
[2022-08-17] MEDS: FINASTERIDE 5 MG TABLET (FP) PO SCH (09:34)
[2022-08-17] MEDS: ENOXAPARIN NA (PORCINE) 40 MG/0.4 ML DISP.SYRIN SQ SCH (09:34)
[2022-08-17] MEDS: VITAMIN A 10,000 UNITS (3000 MCG) CAPSULE PO SCH (09:34)
[2022-08-17] MEDS: DOCUSATE SODIUM 100 MG CAPSULE (FP) PO SCH (09:34)
[2022-08-17] MEDS: AMINO ACIDS/PROTEIN HYDROLYS 30 ML LIQUID.PKT PO SCH ×2 (09:34→11:58)
[2022-08-17] MEDS: MULTIVITAMINS (DAILY MVI) TABLET (FP) PO SCH (09:34)
[2022-08-17] MEDS: ASCORBIC ACID 500 MG TABLET (FP) PO SCH (09:35)
[2022-08-17] MEDS: ESCITALOPRAM OXALATE 10 MG TABLET PO SCH (09:35)
[2022-08-17] MEDS: PANTOPRAZOLE 20 MG TABLET PO SCH (09:35)
[2022-08-17 09:57] LABS: BASO % 1.5 % (0-2.0); EOS % 3.3 % (0-4.5); HEMATOCRIT 28.1 % (35.4-49); HEMOGLOBIN 8.8 GM/dL (11.7-16.9); LYMPH % 26.5 % (8-40); MCH 27.1 pg (25.7-33.7); MCHC 31.4 g/dl (32.0-35.9); MEAN CELL VOLUME 86.5 fl (80-96); MEAN PLT VOLUME 7.4 fl (7.5-11.1); MONO % 6.1 % (3.8-10.2); NEUT % 62.6 % (42.8-82.8); PLATELET COUNT 373 10^3/uL (134-434); RBC 3.25 M/mm3 (4.00-5.60); RDW 18.6 % (11.9-15.9); WHITE BLOOD COUNT 6.4 K/mm3 (4.0-10.0)
[2022-08-17 10:09] LABS: ALBUMIN 2.5 g/dl (3.4-5.0); CALCIUM 9.1 mg/dL (8.5-10.1); MAGNESIUM 2.3 mg/dL (1.8-2.4)
[2022-08-17 10:10] LABS: BLOOD UREA NITROGEN 25.5 mg/dL (7-18)
[2022-08-17 10:12] LABS: CREATININE 0.5 mg/dL (0.55-1.3)
[2022-08-17 10:14] LABS: BILIRUBIN,TOTAL 0.3 mg/dL (0.2-1); TOT PROT 7.2 g/dl (6.4-8.2)
[2022-08-17] MEDS: ATORVASTATIN CA 20 MG TABLET (FP) PO SCH (21:44)
[2022-08-17] MEDS: BACLOFEN 10 MG TABLET (FP) PO SCH (21:44)
[2022-08-17] MEDS: GABAPENTIN 300 MG CAPSULE PO SCH (21:44)
[2022-08-18] MEDS: PIPERACILLIN/TAZOB 3.375 GM 3.375 GM in DEXTROSE 5%-WATER - 50 ML IVPB SCH ×3 (03:42→20:48)
[2022-08-18] MEDS: AMINO ACIDS/PROTEIN HYDROLYS 30 ML LIQUID.PKT PO SCH (08:01)
[2022-08-18 09:02] LABS: HEMATOCRIT 26.8 % (35.4-49); HEMOGLOBIN 8.6 GM/dL (11.7-16.9); LYMPH % 20.7 % (8-40); MCH 27.6 pg (25.7-33.7); MCHC 32.1 g/dl (32.0-35.9); MEAN CELL VOLUME 86.2 fl (80-96); MEAN PLT VOLUME 7.1 fl (7.5-11.1); MONO % 6.4 % (3.8-10.2); NEUT % 68.9 % (42.8-82.8); PLATELET COUNT 357 10^3/uL (134-434); RBC 3.11 M/mm3 (4.00-5.60); RDW 18.4 % (11.9-15.9); WHITE BLOOD COUNT 6.5 K/mm3 (4.0-10.0)
[2022-08-18] MEDS: DOCUSATE SODIUM 100 MG CAPSULE (FP) PO SCH (09:04)
[2022-08-18] MEDS: FINASTERIDE 5 MG TABLET (FP) PO SCH (09:04)
[2022-08-18] MEDS: ENOXAPARIN NA (PORCINE) 40 MG/0.4 ML DISP.SYRIN SQ SCH (09:04)
[2022-08-18] MEDS: VITAMIN A 10,000 UNITS (3000 MCG) CAPSULE PO SCH (09:04)
[2022-08-18] MEDS: PANTOPRAZOLE 20 MG TABLET PO SCH (09:04)
[2022-08-18] MEDS: ASCORBIC ACID 500 MG TABLET (FP) PO SCH (09:05)
[2022-08-18] MEDS: MULTIVITAMINS (DAILY MVI) TABLET (FP) PO SCH (09:05)
[2022-08-18] MEDS: ESCITALOPRAM OXALATE 10 MG TABLET PO SCH (09:05)
[2022-08-18 09:28] LABS: CALCIUM 9.1 mg/dL (8.5-10.1)
[2022-08-18 09:29] LABS: ALBUMIN 2.5 g/dl (3.4-5.0); MAGNESIUM 2.3 mg/dL (1.8-2.4)
[2022-08-18 09:32] LABS: CREATININE 0.5 mg/dL (0.55-1.3)
[2022-08-18 09:33] LABS: BILIRUBIN,TOTAL 0.3 mg/dL (0.2-1); TOT PROT 7.2 g/dl (6.4-8.2)
[2022-08-18] MEDS: BACLOFEN 10 MG TABLET (FP) PO SCH (21:26)
[2022-08-18] MEDS: GABAPENTIN 300 MG CAPSULE PO SCH (21:26)
[2022-08-18] MEDS: ATORVASTATIN CA 20 MG TABLET (FP) PO SCH (21:27)
[2022-08-19] MEDS: PIPERACILLIN/TAZOB 3.375 GM 3.375 GM in DEXTROSE 5%-WATER - 50 ML IVPB SCH ×3 (04:41→20:03)
[2022-08-19 07:59] LABS: CALCIUM 9.5 mg/dL (8.5-10.1)
[2022-08-19 08:00] LABS: ALBUMIN 2.5 g/dl (3.4-5.0); BLOOD UREA NITROGEN 22.7 mg/dL (7-18); MAGNESIUM 2.3 mg/dL (1.8-2.4)
[2022-08-19 08:03] LABS: CREATININE 0.4 mg/dL (0.55-1.3)
[2022-08-19 08:05] LABS: BILIRUBIN,TOTAL 0.3 mg/dL (0.2-1); TOT PROT 7.1 g/dl (6.4-8.2)
[2022-08-19 08:20] LABS: BASO % 0.9 % (0-2.0); EOS % 3.5 % (0-4.5); HEMATOCRIT 26.9 % (35.4-49); HEMOGLOBIN 8.6 GM/dL (11.7-16.9); LYMPH % 22.1 % (8-40); MCH 27.8 pg (25.7-33.7); MEAN CELL VOLUME 86.9 fl (80-96); MEAN PLT VOLUME 7.5 fl (7.5-11.1); MONO % 7.3 % (3.8-10.2); NEUT % 66.2 % (42.8-82.8); PLATELET COUNT 367 10^3/uL (134-434); RBC 3.09 M/mm3 (4.00-5.60); RDW 18.7 % (11.9-15.9); WHITE BLOOD COUNT 6.7 K/mm3 (4.0-10.0)
[2022-08-19] MEDS: AMINO ACIDS/PROTEIN HYDROLYS 30 ML LIQUID.PKT PO SCH (08:57)
[2022-08-19] MEDS: FINASTERIDE 5 MG TABLET (FP) PO SCH (09:43)
[2022-08-19] MEDS: ASCORBIC ACID 500 MG TABLET (FP) PO SCH (09:43)
[2022-08-19] MEDS: DOCUSATE SODIUM 100 MG CAPSULE (FP) PO SCH (09:43)
[2022-08-19] MEDS: MULTIVITAMINS (DAILY MVI) TABLET (FP) PO SCH (09:43)
[2022-08-19] MEDS: ESCITALOPRAM OXALATE 10 MG TABLET PO SCH (09:43)
[2022-08-19] MEDS: ENOXAPARIN NA (PORCINE) 40 MG/0.4 ML DISP.SYRIN SQ SCH (09:43)
[2022-08-19] MEDS: PANTOPRAZOLE 20 MG TABLET PO SCH (09:43)
[2022-08-19] MEDS: VITAMIN A 10,000 UNITS (3000 MCG) CAPSULE PO SCH (09:44)
[2022-08-19] MEDS: BACLOFEN 10 MG TABLET (FP) PO SCH (22:03)
[2022-08-19] MEDS: GABAPENTIN 300 MG CAPSULE PO SCH (22:03)
[2022-08-19] MEDS: ATORVASTATIN CA 20 MG TABLET (FP) PO SCH (22:04)
[2022-08-20] MEDS: PIPERACILLIN/TAZOB 3.375 GM 3.375 GM in DEXTROSE 5%-WATER - 50 ML IVPB SCH ×3 (04:32→20:17)
[2022-08-20 07:21] LABS: HEMATOCRIT 27.5 % (35.4-49); HEMOGLOBIN 8.9 GM/dL (11.7-16.9); LYMPH % 20.5 % (8-40); MCH 27.8 pg (25.7-33.7); MCHC 32.1 g/dl (32.0-35.9); MEAN CELL VOLUME 86.4 fl (80-96); MEAN PLT VOLUME 7.7 fl (7.5-11.1); MONO % 7.6 % (3.8-10.2); NEUT % 66.9 % (42.8-82.8); PLATELET COUNT 353 10^3/uL (134-434); RBC 3.19 M/mm3 (4.00-5.60); RDW 18.9 % (11.9-15.9); WHITE BLOOD COUNT 6.7 K/mm3 (4.0-10.0)
[2022-08-20] MEDS: AMINO ACIDS/PROTEIN HYDROLYS 30 ML LIQUID.PKT PO SCH (08:14)
[2022-08-20] MEDS: MULTIVITAMINS (DAILY MVI) TABLET (FP) PO SCH (09:12)
[2022-08-20] MEDS: FINASTERIDE 5 MG TABLET (FP) PO SCH (09:13)
[2022-08-20] MEDS: PANTOPRAZOLE 20 MG TABLET PO SCH (09:14)
[2022-08-20] MEDS: VITAMIN A 10,000 UNITS (3000 MCG) CAPSULE PO SCH (09:14)
[2022-08-20] MEDS: ENOXAPARIN NA (PORCINE) 40 MG/0.4 ML DISP.SYRIN SQ SCH (09:14)
[2022-08-20] MEDS: ASCORBIC ACID 500 MG TABLET (FP) PO SCH (09:14)
[2022-08-20] MEDS: DOCUSATE SODIUM 100 MG CAPSULE (FP) PO SCH (09:14)
[2022-08-20] MEDS: ESCITALOPRAM OXALATE 10 MG TABLET PO SCH (09:14)
[2022-08-20 09:28] LABS: ALBUMIN 2.6 g/dl (3.4-5.0); BILIRUBIN,TOTAL 0.4 mg/dL (0.2-1); BLOOD UREA NITROGEN 23.7 mg/dL (7-18); CALCIUM 9.6 mg/dL (8.5-10.1); CREATININE 0.6 mg/dL (0.55-1.3); MAGNESIUM 2.3 mg/dL (1.8-2.4); TOT PROT 7.4 g/dl (6.4-8.2)
[2022-08-20] MEDS: BACLOFEN 10 MG TABLET (FP) PO SCH (21:21)
[2022-08-20] MEDS: ATORVASTATIN CA 20 MG TABLET (FP) PO SCH (21:21)
[2022-08-20] MEDS: GABAPENTIN 300 MG CAPSULE PO SCH (21:22)
[2022-08-21] MEDS: PIPERACILLIN/TAZOB 3.375 GM 3.375 GM in DEXTROSE 5%-WATER - 50 ML IVPB SCH ×3 (04:10→21:21)
[2022-08-21] MEDS: AMINO ACIDS/PROTEIN HYDROLYS 30 ML LIQUID.PKT PO SCH (08:11)
[2022-08-21 08:25] LABS: EOS % 3.8 % (0-4.5); HEMATOCRIT 28.3 % (35.4-49); HEMOGLOBIN 9.1 GM/dL (11.7-16.9); LYMPH % 18.7 % (8-40); MCH 27.7 pg (25.7-33.7); MCHC 32.1 g/dl (32.0-35.9); MEAN CELL VOLUME 86.1 fl (80-96); MEAN PLT VOLUME 7.7 fl (7.5-11.1); MONO % 6.7 % (3.8-10.2); NEUT % 69.8 % (42.8-82.8); PLATELET COUNT 343 10^3/uL (134-434); RBC 3.28 M/mm3 (4.00-5.60); RDW 18.5 % (11.9-15.9); WHITE BLOOD COUNT 6.9 K/mm3 (4.0-10.0)
[2022-08-21 09:17] LABS: ALBUMIN 2.6 g/dl (3.4-5.0); BLOOD UREA NITROGEN 21.9 mg/dL (7-18); CALCIUM 9.3 mg/dL (8.5-10.1); MAGNESIUM 2.3 mg/dL (1.8-2.4)
[2022-08-21 09:21] LABS: CREATININE 0.6 mg/dL (0.55-1.3)
[2022-08-21 09:22] LABS: BILIRUBIN,TOTAL 0.4 mg/dL (0.2-1); TOT PROT 7.4 g/dl (6.4-8.2)
[2022-08-21] MEDS: MULTIVITAMINS (DAILY MVI) TABLET (FP) PO SCH (10:10)
[2022-08-21] MEDS: VITAMIN A 10,000 UNITS (3000 MCG) CAPSULE PO SCH (10:10)
[2022-08-21] MEDS: ENOXAPARIN NA (PORCINE) 40 MG/0.4 ML DISP.SYRIN SQ SCH (10:10)
[2022-08-21] MEDS: PANTOPRAZOLE 20 MG TABLET PO SCH (10:11)
[2022-08-21] MEDS: ASCORBIC ACID 500 MG TABLET (FP) PO SCH (10:11)
[2022-08-21] MEDS: FINASTERIDE 5 MG TABLET (FP) PO SCH (10:11)
[2022-08-21] MEDS: ESCITALOPRAM OXALATE 10 MG TABLET PO SCH (10:11)
[2022-08-21] MEDS: DOCUSATE SODIUM 100 MG CAPSULE (FP) PO SCH (10:11)
[2022-08-21] MEDS: GENTAMICIN SO4 0.1% TOP CREAM 15 GM/TUBE TP SCH ×2 (12:25→23:25)
[2022-08-21] MEDS: GABAPENTIN 300 MG CAPSULE PO SCH (21:22)
[2022-08-21] MEDS: BACLOFEN 10 MG TABLET (FP) PO SCH (21:22)
[2022-08-21] MEDS: ATORVASTATIN CA 20 MG TABLET (FP) PO SCH (21:22)
[2022-08-22] MEDS: PIPERACILLIN/TAZOB 3.375 GM 3.375 GM in DEXTROSE 5%-WATER - 50 ML IVPB SCH ×3 (03:42→20:01)
[2022-08-22 08:18] LABS: BASO % 0.9 % (0-2.0); EOS % 3.6 % (0-4.5); HEMATOCRIT 28.3 % (35.4-49); HEMOGLOBIN 9.1 GM/dL (11.7-16.9); LYMPH % 19.3 % (8-40); MCH 28.2 pg (25.7-33.7); MCHC 32.3 g/dl (32.0-35.9); MEAN CELL VOLUME 87.5 fl (80-96); MEAN PLT VOLUME 7.4 fl (7.5-11.1); MONO % 6.4 % (3.8-10.2); NEUT % 69.8 % (42.8-82.8); PLATELET COUNT 336 10^3/uL (134-434); RBC 3.23 M/mm3 (4.00-5.60); RDW 18.9 % (11.9-15.9); WHITE BLOOD COUNT 6.8 K/mm3 (4.0-10.0)
[2022-08-22 09:15] LABS: CALCIUM 9.7 mg/dL (8.5-10.1)
[2022-08-22] MEDS: DOCUSATE SODIUM 100 MG CAPSULE (FP) PO SCH (09:15)
[2022-08-22] MEDS: MULTIVITAMINS (DAILY MVI) TABLET (FP) PO SCH (09:15)
[2022-08-22] MEDS: ASCORBIC ACID 500 MG TABLET (FP) PO SCH (09:15)
[2022-08-22] MEDS: ESCITALOPRAM OXALATE 10 MG TABLET PO SCH (09:15)
[2022-08-22] MEDS: FINASTERIDE 5 MG TABLET (FP) PO SCH (09:15)
[2022-08-22] MEDS: AMINO ACIDS/PROTEIN HYDROLYS 30 ML LIQUID.PKT PO SCH (09:15)
[2022-08-22] MEDS: ENOXAPARIN NA (PORCINE) 40 MG/0.4 ML DISP.SYRIN SQ SCH (09:15)
[2022-08-22] MEDS: PANTOPRAZOLE 20 MG TABLET PO SCH (09:15)
[2022-08-22 09:16] LABS: ALBUMIN 2.6 g/dl (3.4-5.0); BLOOD UREA NITROGEN 23.2 mg/dL (7-18); MAGNESIUM 2.3 mg/dL (1.8-2.4)
[2022-08-22] MEDS: GENTAMICIN SO4 0.1% TOP CREAM 15 GM/TUBE TP SCH ×2 (09:17→21:35)
[2022-08-22 09:18] LABS: BILIRUBIN,TOTAL 0.3 mg/dL (0.2-1); TOT PROT 7.6 g/dl (6.4-8.2)
[2022-08-22 09:19] LABS: CREATININE 0.5 mg/dL (0.55-1.3)
[2022-08-22] MEDS: VITAMIN A 10,000 UNITS (3000 MCG) CAPSULE PO SCH (09:33)
[2022-08-22] MEDS: GABAPENTIN 300 MG CAPSULE PO SCH (21:35)
[2022-08-22] MEDS: ATORVASTATIN CA 20 MG TABLET (FP) PO SCH (21:35)
[2022-08-22] MEDS: BACLOFEN 10 MG TABLET (FP) PO SCH (21:35)
[2022-08-22] MEDS: LACTULOSE 20 GM/30 ML UDC (FOR ORAL USE ONLY) PO PRN (21:38)
[2022-08-23] MEDS: PIPERACILLIN/TAZOB 3.375 GM 3.375 GM in DEXTROSE 5%-WATER - 50 ML IVPB SCH ×3 (04:39→22:56)
[2022-08-23] MEDS: GENTAMICIN SO4 0.1% TOP CREAM 15 GM/TUBE TP SCH ×2 (10:00→22:56)
[2022-08-23] MEDS: PANTOPRAZOLE 20 MG TABLET PO SCH (10:26)
[2022-08-23] MEDS: ASCORBIC ACID 500 MG TABLET (FP) PO SCH (10:26)
[2022-08-23] MEDS: ENOXAPARIN NA (PORCINE) 40 MG/0.4 ML DISP.SYRIN SQ SCH (10:26)
[2022-08-23] MEDS: ESCITALOPRAM OXALATE 10 MG TABLET PO SCH (10:26)
[2022-08-23] MEDS: DOCUSATE SODIUM 100 MG CAPSULE (FP) PO SCH (10:26)
[2022-08-23] MEDS: AMINO ACIDS/PROTEIN HYDROLYS 30 ML LIQUID.PKT PO SCH (10:26)
[2022-08-23] MEDS: FINASTERIDE 5 MG TABLET (FP) PO SCH (10:26)
[2022-08-23] MEDS: MULTIVITAMINS (DAILY MVI) TABLET (FP) PO SCH (10:26)
[2022-08-23] MEDS: ATORVASTATIN CA 20 MG TABLET (FP) PO SCH (22:56)
[2022-08-23] MEDS: BACLOFEN 10 MG TABLET (FP) PO SCH (22:56)
[2022-08-23] MEDS: GABAPENTIN 300 MG CAPSULE PO SCH (22:56)
[2022-08-24] MEDS: PIPERACILLIN/TAZOB 3.375 GM 3.375 GM in DEXTROSE 5%-WATER - 50 ML IVPB SCH ×2 (03:44→11:59)
[2022-08-24 09:24] LABS: BASO % 0.7 % (0-2.0); EOS % 2.9 % (0-4.5); HEMATOCRIT 29.4 % (35.4-49); HEMOGLOBIN 9.4 GM/dL (11.7-16.9); LYMPH % 18.8 % (8-40); MCH 27.6 pg (25.7-33.7); MEAN CELL VOLUME 86.5 fl (80-96); MEAN PLT VOLUME 7.8 fl (7.5-11.1); MONO % 5.2 % (3.8-10.2); NEUT % 72.4 % (42.8-82.8); PLATELET COUNT 358 10^3/uL (134-434); RDW 18.8 % (11.9-15.9); WHITE BLOOD COUNT 6.9 K/mm3 (4.0-10.0)
[2022-08-24 09:56] LABS: ALBUMIN 2.7 g/dl (3.4-5.0); BLOOD UREA NITROGEN 23.6 mg/dL (7-18); CALCIUM 9.9 mg/dL (8.5-10.1); MAGNESIUM 2.3 mg/dL (1.8-2.4)
[2022-08-24] MEDS: ASCORBIC ACID 500 MG TABLET (FP) PO SCH (09:56)
[2022-08-24] MEDS: FINASTERIDE 5 MG TABLET (FP) PO SCH (09:56)
[2022-08-24] MEDS: DOCUSATE SODIUM 100 MG CAPSULE (FP) PO SCH (09:56)
[2022-08-24] MEDS: ESCITALOPRAM OXALATE 10 MG TABLET PO SCH (09:56)
[2022-08-24] MEDS: ENOXAPARIN NA (PORCINE) 40 MG/0.4 ML DISP.SYRIN SQ SCH (09:57)
[2022-08-24] MEDS: MULTIVITAMINS (DAILY MVI) TABLET (FP) PO SCH (09:57)
[2022-08-24] MEDS: PANTOPRAZOLE 20 MG TABLET PO SCH (09:57)
[2022-08-24] MEDS: AMINO ACIDS/PROTEIN HYDROLYS 30 ML LIQUID.PKT PO SCH (09:57)
[2022-08-24] MEDS: GENTAMICIN SO4 0.1% TOP CREAM 15 GM/TUBE TP SCH ×2 (09:57→22:26)
[2022-08-24 09:59] LABS: CREATININE 0.6 mg/dL (0.55-1.3)
[2022-08-24 10:01] LABS: BILIRUBIN,TOTAL 0.5 mg/dL (0.2-1); TOT PROT 7.6 g/dl (6.4-8.2)
[2022-08-24] MEDS: ACETAMINOPHEN 325 MG TABLET (FP) PO PRN ×2 (12:00→22:24)
[2022-08-24] MEDS ORDERED: GENTAMICIN SO4 0.1% TOP CREAM 15 GM/TUBE TP ONE (14:09)
[2022-08-24] MEDS: ATORVASTATIN CA 20 MG TABLET (FP) PO SCH (22:24)
[2022-08-24] MEDS: GABAPENTIN 300 MG CAPSULE PO SCH (22:24)
[2022-08-24] MEDS: BACLOFEN 10 MG TABLET (FP) PO SCH (22:24)
[2022-08-25 05:40] VITALS: RESP 18
[2022-08-25 07:46] LABS: BASO % 0.8 % (0-2.0); EOS % 3.2 % (0-4.5); HEMATOCRIT 29.1 % (35.4-49); HEMOGLOBIN 9.5 GM/dL (11.7-16.9); LYMPH % 20.7 % (8-40); MCH 28.1 pg (25.7-33.7); MCHC 32.5 g/dl (32.0-35.9); MEAN CELL VOLUME 86.6 fl (80-96); MEAN PLT VOLUME 7.8 fl (7.5-11.1); MONO % 5.8 % (3.8-10.2); NEUT % 69.5 % (42.8-82.8); PLATELET COUNT 351 10^3/uL (134-434); RBC 3.36 M/mm3 (4.00-5.60); RDW 19.1 % (11.9-15.9)
[2022-08-25 07:57] LABS: CALCIUM 9.9 mg/dL (8.5-10.1)
[2022-08-25 07:58] LABS: ALBUMIN 2.8 g/dl (3.4-5.0); MAGNESIUM 2.1 mg/dL (1.8-2.4)
[2022-08-25 07:59] LABS: BLOOD UREA NITROGEN 26.8 mg/dL (7-18)
[2022-08-25 08:01] LABS: CREATININE 0.6 mg/dL (0.55-1.3)
[2022-08-25 08:02] LABS: TOT PROT 7.7 g/dl (6.4-8.2)
[2022-08-25 08:40] LABS: BILIRUBIN,TOTAL 0.3 mg/dL (0.2-1)
[2022-08-25] MEDS: AMINO ACIDS/PROTEIN HYDROLYS 30 ML LIQUID.PKT PO SCH (08:55)
[2022-08-25] MEDS: MULTIVITAMINS (DAILY MVI) TABLET (FP) PO SCH (10:13)
[2022-08-25] MEDS: ESCITALOPRAM OXALATE 10 MG TABLET PO SCH (10:13)
[2022-08-25] MEDS: ASCORBIC ACID 500 MG TABLET (FP) PO SCH (10:14)
[2022-08-25] MEDS: DOCUSATE SODIUM 100 MG CAPSULE (FP) PO SCH (10:14)
[2022-08-25] MEDS: PANTOPRAZOLE 20 MG TABLET PO SCH (10:14)
[2022-08-25] MEDS: ENOXAPARIN NA (PORCINE) 40 MG/0.4 ML DISP.SYRIN SQ SCH (10:14)
[2022-08-25] MEDS: FINASTERIDE 5 MG TABLET (FP) PO SCH (10:14)
[2022-08-25] MEDS: GENTAMICIN SO4 0.1% TOP CREAM 15 GM/TUBE TP SCH (10:35)
[2022-08-25 14:55] VITALS: BP 115/70; PULSE 68; TEMP 98.1
== END 2022-08-25 15:42 | disposition home or self-care (01) | DRG 593 ==
LOC: JER 12:05 → JERBED 16:28 → J4S 08-12 02:07
PROVIDERS: ADMIT Internal Medicine; ATTEND Nurse Practitioner Acute Care
DX: L89.144 Pressure ulcer of left lower back, stage 4 (principal); G82.20 Paraplegia, unspecified; N39.0 Urinary tract infection, site not specified; L89.154 Pressure ulcer of sacral region, stage 4; I10 Essential (primary) hypertension; Z93.3 Colostomy status; E78.5 Hyperlipidemia, unspecified; Z79.01 Long term (current) use of anticoagulants
CPT/HCPCS: 36415; 71045-TC-FY; 80053; 81003; 83605; 83735; 84100; 85025; 85610; 85651; 85730; 86140; 87040; 87070; 87086; 87186; 87205; 93005; 93010; 97161-GP; 99285-25; C9803-CS; J0475; U0003; U0005

== ENCOUNTER 2023-04-13 10:53 | Inpatient (IN) | payer OTHER, BC ==
[2023-04-13] MEDS ORDERED: SODIUM CHLORIDE 2,381 ML IV ONE (11:41)
[2023-04-13 11:58] LABS: HEMATOCRIT 27.6 % (35.4-49); HEMOGLOBIN 8.9 GM/dL (11.7-16.9); MCH 28.2 pg (25.7-33.7); MCHC 32.2 g/dl (32.0-35.9); MEAN CELL VOLUME 87.5 fl (80-96); MEAN PLT VOLUME 7.8 fl (7.5-11.1); PLATELET COUNT 730 10^3/uL (134-434); RBC 3.16 M/mm3 (4.00-5.60); RDW 20.2 % (11.9-15.9); WHITE BLOOD COUNT 17.4 K/mm3 (4.0-10.0)
[2023-04-13 12:03] LABS: INR 1.18 (0.83-1.09); PROTHROMBIN TIME (PATIENT) 13.7 SEC (9.7-13.0)
[2023-04-13 12:06] LABS: ACTIVATED PTT 32.6 SECONDS (25.2-36.5)
[2023-04-13 12:30] LABS: ANISOCYTOSIS 1+; MACROCYTOSIS 0
[2023-04-13 12:40] LABS: POTASSIUM 4.3 mmol/L (3.5-5.1)
[2023-04-13 12:42] LABS: CALCIUM 9.4 mg/dL (8.5-10.1)
[2023-04-13 12:43] LABS: ALBUMIN 1.7 g/dl (3.4-5.0)
[2023-04-13 12:46] LABS: CREATININE 0.6 mg/dL (0.55-1.3)
[2023-04-13 12:47] LABS: BILIRUBIN,TOTAL 0.3 mg/dL (0.2-1)
[2023-04-13 12:48] LABS: TOT PROT 8.1 g/dl (6.4-8.2)
[2023-04-13 13:23] LABS: VENOUS BASE EXCESS 0.4 mmol/L (-2-2); VENOUS O2 SATURATION 45.6 % (70-80); VENOUS PCO2 41.8 mmHg (38-52); VENOUS PH 7.399 (7.310-7.410)
[2023-04-13 13:35] LABS: EPI CELLS 13 /uL (0-25.1); HYALINE CASTS 0 /uL (0-3.1); URINE APPEARANCE TURBID; URINE BACTERIA >9,000 /uL (0-1359); URINE BILIRUBIN NEGATIVE (NEGATIVE); URINE COLOR ORANGE; URINE GLUCOSE (UA) NEGATIVE (NEGATIVE); URINE KETONE NEGATIVE (NEGATIVE); URINE LEUK ESTERASE 3+ (NEGATIVE); URINE NITRITE NEGATIVE (NEGATIVE); URINE PROTEIN 2+ (NEGATIVE); URINE UROBILINOGEN 0.2 mg/dL (0.2-1.0); URINE WBC 4591 /uL (0-25.8)
[2023-04-13] MEDS ORDERED: VANCOMYCIN 1,000 MG in DEXTROSE 5%-WATER - 250 ML IVPB ONE (14:07)
[2023-04-13] MEDS ORDERED: PIPERACILLIN/TAZOB 4.5 GM 4.5 GM in DEXTROSE 5%-WATER 100 ML IVPB ONE (14:07)
[2023-04-13 14:09] LABS: URINE RBC 5461 /uL (0-23.9)
[2023-04-13] MEDS ORDERED: VANCOMYCIN 1 GRAM (PRE-DOCKED) 1,000 MG/250 ML BAG IVPB ONE (14:22)
[2023-04-13] MEDS ORDERED: PIPERACILLIN/TAZOB 4.5 GM 4.5 GM/100 ML BAG IVPB ONE (14:22)
[2023-04-13] MEDS ORDERED: LACTATED RINGERS SOLUTION 1000 ML INFUS.BAG IV ONE (14:30)
[2023-04-13] MEDS: LACTATED RINGERS SOLUTION 1,000 ML/1,000 ML INFUS.BAG IV SCH (15:30)
[2023-04-13 18:08] LABS: ERYTHROCYTE SEDIMENTATION RATE 104 mm/hr (0-20)
[2023-04-13] MEDS ORDERED: PIPERACILLIN/TAZOB 3.375 GM 3.375 GM/50 ML BAG IVPB ONE ×2 (21:14)
[2023-04-13] MEDS: PIPERACILLIN/TAZOB 3.375 GM 3.375 GM in DEXTROSE 5%-WATER - 50 ML IVPB SCH (21:35)
[2023-04-14] MEDS: PIPERACILLIN/TAZOB 3.375 GM 3.375 GM in DEXTROSE 5%-WATER - 50 ML IVPB SCH ×4 (02:37→19:13)
[2023-04-14] MEDS: LACTATED RINGERS SOLUTION 1,000 ML/1,000 ML INFUS.BAG IV SCH ×4 (02:37→21:25)
[2023-04-14] MEDS: ESCITALOPRAM OXALATE 10 MG TABLET PO SCH (09:31)
[2023-04-14] MEDS: PANTOPRAZOLE 20 MG TABLET PO SCH (09:31)
[2023-04-14] MEDS: MIDODRINE HCL 5 MG TABLET PO SCH ×2 (09:31→20:34)
[2023-04-14] MEDS: MULTIVITAMINS (DAILY MVI) TABLET (FP) PO SCH (09:31)
[2023-04-14] MEDS ORDERED: CEFTRIAXONE 1 GM in DEXTROSE 5%-WATER - 50 ML IVPB SCH ×2 (10:00→12:00)
[2023-04-14 12:53] LABS: BASO % 0.5 % (0-2.0); EOS % 1.5 % (0-4.5); HEMATOCRIT 23.7 % (35.4-49); HEMOGLOBIN 7.5 GM/dL (11.7-16.9); MCH 27.6 pg (25.7-33.7); MCHC 31.6 g/dl (32.0-35.9); MEAN CELL VOLUME 87.4 fl (80-96); MEAN PLT VOLUME 7.9 fl (7.5-11.1); PLATELET COUNT 529 10^3/uL (134-434); RBC 2.71 M/mm3 (4.00-5.60); RDW 20.7 % (11.9-15.9); WHITE BLOOD COUNT 13.4 K/mm3 (4.0-10.0)
[2023-04-14 13:33] LABS: CALCIUM 8.7 mg/dL (8.5-10.1)
[2023-04-14 13:34] LABS: ALBUMIN 1.4 g/dl (3.4-5.0); BLOOD UREA NITROGEN 11.4 mg/dL (7-18); MAGNESIUM 1.4 mg/dL (1.8-2.4)
[2023-04-14 13:37] LABS: CREATININE 0.6 mg/dL (0.55-1.3); PHOSPHOROUS 2.5 mg/dL (2.5-4.9)
[2023-04-14 13:39] LABS: BILIRUBIN,TOTAL 0.2 mg/dL (0.2-1); TOT PROT 6.7 g/dl (6.4-8.2)
[2023-04-14 13:51] LABS: ANISOCYTOSIS 2+; MACROCYTOSIS 0
[2023-04-14] MEDS: AMINO ACIDS/PROTEIN HYDROLYS 30 ML LIQUID.PKT PO SCH (17:33)
[2023-04-14] MEDS: ACETAMINOPHEN 325 MG TABLET (FP) PO PRN (17:33)
[2023-04-14] MEDS: BACLOFEN 10 MG TABLET (FP) PO SCH (21:25)
[2023-04-14] MEDS: ATORVASTATIN CA 20 MG TABLET (FP) PO SCH (21:25)
[2023-04-15] MEDS: PIPERACILLIN/TAZOB 3.375 GM 3.375 GM in DEXTROSE 5%-WATER - 50 ML IVPB SCH ×3 (02:09→17:40)
[2023-04-15] MEDS: LACTATED RINGERS SOLUTION 1,000 ML/1,000 ML INFUS.BAG IV SCH ×2 (06:01→09:36)
[2023-04-15 08:18] LABS: BASO % 0.4 % (0-2.0); EOS % 2.7 % (0-4.5); HEMATOCRIT 20.5 % (35.4-49); LYMPH % 8.9 % (8-40); MCH 28.6 pg (25.7-33.7); MCHC 33.6 g/dl (32.0-35.9); MEAN CELL VOLUME 85.3 fl (80-96); MEAN PLT VOLUME 6.9 fl (7.5-11.1); MONO % 4.7 % (3.8-10.2); NEUT % 83.3 % (42.8-82.8); PLATELET COUNT 444 10^3/uL (134-434); RDW 20.1 % (11.9-15.9); WHITE BLOOD COUNT 10.4 K/mm3 (4.0-10.0)
[2023-04-15 08:28] LABS: HEMOGLOBIN 6.9 GM/dL (11.7-16.9)
[2023-04-15 08:32] LABS: POTASSIUM 3.7 mmol/L (3.5-5.1)
[2023-04-15 08:38] LABS: CALCIUM 8.7 mg/dL (8.5-10.1)
[2023-04-15 08:39] LABS: ALBUMIN 1.3 g/dl (3.4-5.0); BLOOD UREA NITROGEN 10.1 mg/dL (7-18); MAGNESIUM 1.3 mg/dL (1.8-2.4)
[2023-04-15 08:42] LABS: CREATININE 0.5 mg/dL (0.55-1.3)
[2023-04-15 08:43] LABS: BILIRUBIN,TOTAL 0.2 mg/dL (0.2-1)
[2023-04-15 08:44] LABS: TOT PROT 6.2 g/dl (6.4-8.2)
[2023-04-15] MEDS: PANTOPRAZOLE 20 MG TABLET PO SCH (09:35)
[2023-04-15] MEDS: MULTIVITAMINS (DAILY MVI) TABLET (FP) PO SCH (09:35)
[2023-04-15] MEDS: ESCITALOPRAM OXALATE 10 MG TABLET PO SCH (09:35)
[2023-04-15] MEDS: AMINO ACIDS/PROTEIN HYDROLYS 30 ML LIQUID.PKT PO SCH ×2 (09:35→17:39)
[2023-04-15] MEDS: ENOXAPARIN NA (PORCINE) 40 MG/0.4 ML DISP.SYRIN SQ SCH (09:35)
[2023-04-15] MEDS: MIDODRINE HCL 5 MG TABLET PO SCH ×2 (09:35→17:40)
[2023-04-15] MEDS ORDERED: COLLAGENASE CLOSTRIDIUM HIST. 30 GRAMS TUBE TP SCH (10:00)
[2023-04-15 13:58] VITALS: BMI 23.7
[2023-04-15] MEDS: ACETAMINOPHEN 325 MG TABLET (FP) PO PRN ×2 (14:34→23:43)
[2023-04-15] MEDS: BACLOFEN 10 MG TABLET (FP) PO SCH (21:28)
[2023-04-15] MEDS: ATORVASTATIN CA 20 MG TABLET (FP) PO SCH (21:29)
[2023-04-16] MEDS: PIPERACILLIN/TAZOB 3.375 GM 3.375 GM in DEXTROSE 5%-WATER - 50 ML IVPB SCH ×3 (03:05→17:26)
[2023-04-16 08:40] LABS: BASO % 0.9 % (0-2.0); EOS % 2.7 % (0-4.5); HEMATOCRIT 24.5 % (35.4-49); HEMOGLOBIN 8.3 GM/dL (11.7-16.9); LYMPH % 9.1 % (8-40); MCH 29.3 pg (25.7-33.7); MCHC 33.9 g/dl (32.0-35.9); MEAN CELL VOLUME 86.5 fl (80-96); MEAN PLT VOLUME 7.4 fl (7.5-11.1); MONO % 5.3 % (3.8-10.2); PLATELET COUNT 468 10^3/uL (134-434); RBC 2.84 M/mm3 (4.00-5.60); RDW 18.4 % (11.9-15.9); WHITE BLOOD COUNT 11.2 K/mm3 (4.0-10.0)
[2023-04-16] MEDS: AMINO ACIDS/PROTEIN HYDROLYS 30 ML LIQUID.PKT PO SCH ×2 (08:44→16:33)
[2023-04-16] MEDS: ACETAMINOPHEN 325 MG TABLET (FP) PO PRN ×2 (08:46→20:23)
[2023-04-16 09:06] LABS: ALBUMIN 1.3 g/dl (3.4-5.0); BLOOD UREA NITROGEN 10.3 mg/dL (7-18); CALCIUM 8.4 mg/dL (8.5-10.1); MAGNESIUM 1.3 mg/dL (1.8-2.4)
[2023-04-16 09:10] LABS: CREATININE 0.6 mg/dL (0.55-1.3)
[2023-04-16 09:11] LABS: BILIRUBIN,TOTAL 0.3 mg/dL (0.2-1); TOT PROT 6.3 g/dl (6.4-8.2)
[2023-04-16] MEDS: MIDODRINE HCL 5 MG TABLET PO SCH ×2 (09:11→17:26)
[2023-04-16] MEDS: ESCITALOPRAM OXALATE 10 MG TABLET PO SCH (09:11)
[2023-04-16] MEDS: MULTIVITAMINS (DAILY MVI) TABLET (FP) PO SCH (09:11)
[2023-04-16] MEDS: ENOXAPARIN NA (PORCINE) 40 MG/0.4 ML DISP.SYRIN SQ SCH (09:11)
[2023-04-16] MEDS: PANTOPRAZOLE 20 MG TABLET PO SCH (09:11)
[2023-04-16] MEDS ORDERED: MAGNESIUM OXIDE 400 MG TABLET (FP) PO ONE (16:17)
[2023-04-16] MEDS: MAGNESIUM OXIDE 400 MG TABLET (FP) PO SCH (22:18)
[2023-04-16] MEDS: BACLOFEN 10 MG TABLET (FP) PO SCH (22:19)
[2023-04-16] MEDS: ATORVASTATIN CA 20 MG TABLET (FP) PO SCH (22:19)
[2023-04-17] MEDS: PIPERACILLIN/TAZOB 3.375 GM 3.375 GM in DEXTROSE 5%-WATER - 50 ML IVPB SCH ×3 (01:56→18:13)
[2023-04-17] MEDS: AMINO ACIDS/PROTEIN HYDROLYS 30 ML LIQUID.PKT PO SCH ×2 (09:04→17:14)
[2023-04-17] MEDS: ACETAMINOPHEN 325 MG TABLET (FP) PO PRN ×2 (09:04→18:15)
[2023-04-17 10:07] LABS: BASO % 0.4 % (0-2.0); EOS % 2.4 % (0-4.5); HEMATOCRIT 26.4 % (35.4-49); HEMOGLOBIN 8.9 GM/dL (11.7-16.9); LYMPH % 7.8 % (8-40); MCH 28.8 pg (25.7-33.7); MCHC 33.8 g/dl (32.0-35.9); MEAN CELL VOLUME 85.2 fl (80-96); MEAN PLT VOLUME 6.7 fl (7.5-11.1); MONO % 4.5 % (3.8-10.2); NEUT % 84.9 % (42.8-82.8); PLATELET COUNT 470 10^3/uL (134-434); RDW 19.3 % (11.9-15.9); WHITE BLOOD COUNT 12.9 K/mm3 (4.0-10.0)
[2023-04-17 10:27] LABS: POTASSIUM 3.6 mmol/L (3.5-5.1)
[2023-04-17 10:28] LABS: ALBUMIN 1.4 g/dl (3.4-5.0); BLOOD UREA NITROGEN 10.4 mg/dL (7-18); CALCIUM 8.9 mg/dL (8.5-10.1)
[2023-04-17 10:29] LABS: MAGNESIUM 1.5 mg/dL (1.8-2.4)
[2023-04-17 10:32] LABS: CREATININE 0.5 mg/dL (0.55-1.3)
[2023-04-17 10:34] LABS: BILIRUBIN,TOTAL 0.2 mg/dL (0.2-1); TOT PROT 6.6 g/dl (6.4-8.2)
[2023-04-17] MEDS: MIDODRINE HCL 5 MG TABLET PO SCH ×2 (10:51→18:13)
[2023-04-17] MEDS: ESCITALOPRAM OXALATE 10 MG TABLET PO SCH (10:51)
[2023-04-17] MEDS: MULTIVITAMINS (DAILY MVI) TABLET (FP) PO SCH (10:51)
[2023-04-17] MEDS: ENOXAPARIN NA (PORCINE) 40 MG/0.4 ML DISP.SYRIN SQ SCH (10:52)
[2023-04-17] MEDS: MAGNESIUM OXIDE 400 MG TABLET (FP) PO SCH ×2 (10:52→21:28)
[2023-04-17] MEDS: PANTOPRAZOLE 20 MG TABLET PO SCH (11:08)
[2023-04-17] MEDS: COLLAGENASE CLOSTRIDIUM HIST. 30 GRAMS TUBE TP SCH (19:49)
[2023-04-17] MEDS: ATORVASTATIN CA 20 MG TABLET (FP) PO SCH (21:28)
[2023-04-17] MEDS: BACLOFEN 10 MG TABLET (FP) PO SCH (21:28)
[2023-04-18] MEDS: PIPERACILLIN/TAZOB 3.375 GM 3.375 GM in DEXTROSE 5%-WATER - 50 ML IVPB SCH ×3 (01:36→18:36)
[2023-04-18] MEDS: AMINO ACIDS/PROTEIN HYDROLYS 30 ML LIQUID.PKT PO SCH ×2 (08:28→18:17)
[2023-04-18] MEDS: ACETAMINOPHEN 325 MG TABLET (FP) PO PRN ×2 (08:28→18:16)
[2023-04-18] MEDS: ENOXAPARIN NA (PORCINE) 40 MG/0.4 ML DISP.SYRIN SQ SCH (09:30)
[2023-04-18] MEDS: MULTIVITAMINS (DAILY MVI) TABLET (FP) PO SCH (09:30)
[2023-04-18] MEDS: MIDODRINE HCL 5 MG TABLET PO SCH ×2 (09:30→18:36)
[2023-04-18] MEDS: MAGNESIUM OXIDE 400 MG TABLET (FP) PO SCH ×2 (09:30→21:45)
[2023-04-18] MEDS: ESCITALOPRAM OXALATE 10 MG TABLET PO SCH (09:30)
[2023-04-18] MEDS: COLLAGENASE CLOSTRIDIUM HIST. 30 GRAMS TUBE TP SCH (09:31)
[2023-04-18] MEDS: PANTOPRAZOLE 20 MG TABLET PO SCH (09:31)
[2023-04-18 11:09] LABS: POTASSIUM 3.5 mmol/L (3.5-5.1)
[2023-04-18 11:11] LABS: ALBUMIN 1.3 g/dl (3.4-5.0); CALCIUM 8.7 mg/dL (8.5-10.1)
[2023-04-18 11:12] LABS: BLOOD UREA NITROGEN 12.2 mg/dL (7-18)
[2023-04-18 11:14] LABS: CREATININE 0.4 mg/dL (0.55-1.3)
[2023-04-18 11:16] LABS: BILIRUBIN,TOTAL 0.2 mg/dL (0.2-1); TOT PROT 6.3 g/dl (6.4-8.2)
[2023-04-18] MEDS: ONDANSETRON 4 MG/2 ML VIAL IVPUSH PRN (19:01)
[2023-04-18] MEDS: BACLOFEN 10 MG TABLET (FP) PO SCH (21:45)
[2023-04-18] MEDS: ATORVASTATIN CA 20 MG TABLET (FP) PO SCH (21:45)
[2023-04-19] MEDS: PIPERACILLIN/TAZOB 3.375 GM 3.375 GM in DEXTROSE 5%-WATER - 50 ML IVPB SCH ×3 (01:29→17:21)
[2023-04-19] MEDS: AMINO ACIDS/PROTEIN HYDROLYS 30 ML LIQUID.PKT PO SCH ×2 (09:32→16:47)
[2023-04-19] MEDS: ENOXAPARIN NA (PORCINE) 40 MG/0.4 ML DISP.SYRIN SQ SCH (09:34)
[2023-04-19] MEDS: MAGNESIUM OXIDE 400 MG TABLET (FP) PO SCH ×2 (09:35→21:34)
[2023-04-19] MEDS: MIDODRINE HCL 5 MG TABLET PO SCH ×2 (09:35→17:45)
[2023-04-19] MEDS: ESCITALOPRAM OXALATE 10 MG TABLET PO SCH (09:35)
[2023-04-19] MEDS: PANTOPRAZOLE 20 MG TABLET PO SCH (09:35)
[2023-04-19] MEDS: MULTIVITAMINS (DAILY MVI) TABLET (FP) PO SCH (09:35)
[2023-04-19] MEDS: COLLAGENASE CLOSTRIDIUM HIST. 30 GRAMS TUBE TP SCH (16:47)
[2023-04-19] MEDS: ACETAMINOPHEN 325 MG TABLET (FP) PO PRN (17:21)
[2023-04-19] MEDS: BACLOFEN 10 MG TABLET (FP) PO SCH (21:30)
[2023-04-19] MEDS: ATORVASTATIN CA 20 MG TABLET (FP) PO SCH (21:34)
[2023-04-20] MEDS: PIPERACILLIN/TAZOB 3.375 GM 3.375 GM in DEXTROSE 5%-WATER - 50 ML IVPB SCH ×3 (01:24→18:26)
[2023-04-20 08:57] LABS: BASO % 0.8 % (0-2.0); EOS % 2.2 % (0-4.5); HEMATOCRIT 25.6 % (35.4-49); LYMPH % 8.3 % (8-40); MCHC 31.5 g/dl (32.0-35.9); MEAN CELL VOLUME 88.9 fl (80-96); MEAN PLT VOLUME 7.4 fl (7.5-11.1); MONO % 5.7 % (3.8-10.2); PLATELET COUNT 431 10^3/uL (134-434); RBC 2.88 M/mm3 (4.00-5.60); RDW 19.3 % (11.9-15.9); WHITE BLOOD COUNT 12.7 K/mm3 (4.0-10.0)
[2023-04-20 09:16] LABS: POTASSIUM 3.5 mmol/L (3.5-5.1)
[2023-04-20 09:22] LABS: ALBUMIN 1.4 g/dl (3.4-5.0); BLOOD UREA NITROGEN 12.4 mg/dL (7-18); CALCIUM 9.7 mg/dL (8.5-10.1); MAGNESIUM 1.8 mg/dL (1.8-2.4)
[2023-04-20 09:25] LABS: CREATININE 0.4 mg/dL (0.55-1.3)
[2023-04-20 09:26] LABS: BILIRUBIN,TOTAL 0.2 mg/dL (0.2-1); TOT PROT 6.5 g/dl (6.4-8.2)
[2023-04-20] MEDS: PANTOPRAZOLE 20 MG TABLET PO SCH (09:45)
[2023-04-20] MEDS: MAGNESIUM OXIDE 400 MG TABLET (FP) PO SCH ×2 (09:45→22:19)
[2023-04-20] MEDS: AMINO ACIDS/PROTEIN HYDROLYS 30 ML LIQUID.PKT PO SCH ×3 (09:45→18:36)
[2023-04-20] MEDS: ENOXAPARIN NA (PORCINE) 40 MG/0.4 ML DISP.SYRIN SQ SCH (09:45)
[2023-04-20] MEDS: MULTIVITAMINS (DAILY MVI) TABLET (FP) PO SCH (09:45)
[2023-04-20] MEDS: MIDODRINE HCL 5 MG TABLET PO SCH ×2 (09:45→18:26)
[2023-04-20] MEDS: ESCITALOPRAM OXALATE 10 MG TABLET PO SCH (09:45)
[2023-04-20] MEDS: COLLAGENASE CLOSTRIDIUM HIST. 30 GRAMS TUBE TP SCH (09:46)
[2023-04-20] MEDS: BACLOFEN 10 MG TABLET (FP) PO SCH (22:19)
[2023-04-20] MEDS: ATORVASTATIN CA 20 MG TABLET (FP) PO SCH (22:19)
[2023-04-21] MEDS: PIPERACILLIN/TAZOB 3.375 GM 3.375 GM in DEXTROSE 5%-WATER - 50 ML IVPB SCH ×3 (01:53→17:43)
[2023-04-21] MEDS: MAGNESIUM OXIDE 400 MG TABLET (FP) PO SCH ×2 (09:14→21:16)
[2023-04-21] MEDS: ENOXAPARIN NA (PORCINE) 40 MG/0.4 ML DISP.SYRIN SQ SCH (09:14)
[2023-04-21] MEDS: ESCITALOPRAM OXALATE 10 MG TABLET PO SCH (09:14)
[2023-04-21] MEDS: PANTOPRAZOLE 20 MG TABLET PO SCH (09:14)
[2023-04-21] MEDS: MIDODRINE HCL 5 MG TABLET PO SCH ×2 (09:14→17:43)
[2023-04-21] MEDS: MULTIVITAMINS (DAILY MVI) TABLET (FP) PO SCH (09:14)
[2023-04-21] MEDS: AMINO ACIDS/PROTEIN HYDROLYS 30 ML LIQUID.PKT PO SCH ×2 (09:14→17:44)
[2023-04-21] MEDS: COLLAGENASE CLOSTRIDIUM HIST. 30 GRAMS TUBE TP SCH (09:15)
[2023-04-21 09:39] LABS: BASO % 0.5 % (0-2.0); EOS % 2.5 % (0-4.5); HEMATOCRIT 26.6 % (35.4-49); HEMOGLOBIN 8.6 GM/dL (11.7-16.9); LYMPH % 8.8 % (8-40); MCH 28.3 pg (25.7-33.7); MCHC 32.3 g/dl (32.0-35.9); MEAN CELL VOLUME 87.6 fl (80-96); MEAN PLT VOLUME 7.1 fl (7.5-11.1); MONO % 5.1 % (3.8-10.2); NEUT % 83.1 % (42.8-82.8); PLATELET COUNT 406 10^3/uL (134-434); RBC 3.03 M/mm3 (4.00-5.60); RDW 19.9 % (11.9-15.9); WHITE BLOOD COUNT 11.4 K/mm3 (4.0-10.0)
[2023-04-21 09:58] LABS: POTASSIUM 3.6 mmol/L (3.5-5.1)
[2023-04-21 10:16] LABS: ALBUMIN 1.6 g/dl (3.4-5.0); BLOOD UREA NITROGEN 10.9 mg/dL (7-18)
[2023-04-21 10:24] LABS: BILIRUBIN,TOTAL 0.2 mg/dL (0.2-1); CREATININE 0.4 mg/dL (0.55-1.3)
[2023-04-21 10:25] LABS: TOT PROT 6.8 g/dl (6.4-8.2)
[2023-04-21] MEDS: ONDANSETRON 4 MG/2 ML VIAL IVPUSH PRN (17:43)
[2023-04-21] MEDS: ACETAMINOPHEN 325 MG TABLET (FP) PO PRN (17:51)
[2023-04-21] MEDS: BACLOFEN 10 MG TABLET (FP) PO SCH (21:16)
[2023-04-21] MEDS: ATORVASTATIN CA 20 MG TABLET (FP) PO SCH (21:16)
[2023-04-22] MEDS: PIPERACILLIN/TAZOB 3.375 GM 3.375 GM in DEXTROSE 5%-WATER - 50 ML IVPB SCH ×3 (02:47→18:09)
[2023-04-22] MEDS: PANTOPRAZOLE 20 MG TABLET PO SCH (09:22)
[2023-04-22] MEDS: MIDODRINE HCL 5 MG TABLET PO SCH ×2 (09:22→18:09)
[2023-04-22] MEDS: AMINO ACIDS/PROTEIN HYDROLYS 30 ML LIQUID.PKT PO SCH ×2 (09:22→18:04)
[2023-04-22] MEDS: MAGNESIUM OXIDE 400 MG TABLET (FP) PO SCH ×2 (09:22→22:19)
[2023-04-22] MEDS: ACETAMINOPHEN 325 MG TABLET (FP) PO PRN ×2 (09:22→18:04)
[2023-04-22] MEDS: ESCITALOPRAM OXALATE 10 MG TABLET PO SCH (09:23)
[2023-04-22] MEDS: MULTIVITAMINS (DAILY MVI) TABLET (FP) PO SCH (09:23)
[2023-04-22 09:36] LABS: BASO % 0.3 % (0-2.0); EOS % 1.8 % (0-4.5); HEMATOCRIT 26.1 % (35.4-49); HEMOGLOBIN 8.5 GM/dL (11.7-16.9); LYMPH % 6.8 % (8-40); MCH 28.3 pg (25.7-33.7); MCHC 32.5 g/dl (32.0-35.9); MEAN CELL VOLUME 87.1 fl (80-96); MONO % 5.2 % (3.8-10.2); NEUT % 85.9 % (42.8-82.8); PLATELET COUNT 425 10^3/uL (134-434); RBC 2.99 M/mm3 (4.00-5.60); RDW 19.8 % (11.9-15.9); WHITE BLOOD COUNT 12.5 K/mm3 (4.0-10.0)
[2023-04-22 09:37] LABS: INR 1.14 (0.83-1.09); PROTHROMBIN TIME (PATIENT) 13.2 SEC (9.7-13.0)
[2023-04-22 09:59] LABS: POTASSIUM 3.5 mmol/L (3.5-5.1)
[2023-04-22 10:07] LABS: ALBUMIN 1.5 g/dl (3.4-5.0); BLOOD UREA NITROGEN 11.7 mg/dL (7-18); CALCIUM 10.7 mg/dL (8.5-10.1); CREATININE 0.5 mg/dL (0.55-1.3)
[2023-04-22 10:09] LABS: BILIRUBIN,TOTAL 0.3 mg/dL (0.2-1)
[2023-04-22] MEDS: COLLAGENASE CLOSTRIDIUM HIST. 30 GRAMS TUBE TP SCH (12:15)
[2023-04-22] MEDS: ATORVASTATIN CA 20 MG TABLET (FP) PO SCH (22:18)
[2023-04-22] MEDS: BACLOFEN 10 MG TABLET (FP) PO SCH (22:18)
[2023-04-23 02:36] VITALS: RESP 16
[2023-04-23] MEDS: PIPERACILLIN/TAZOB 3.375 GM 3.375 GM in DEXTROSE 5%-WATER - 50 ML IVPB SCH ×2 (03:35→09:38)
[2023-04-23] MEDS: ACETAMINOPHEN 325 MG TABLET (FP) PO PRN (09:36)
[2023-04-23] MEDS: MIDODRINE HCL 5 MG TABLET PO SCH (09:36)
[2023-04-23] MEDS: ENOXAPARIN NA (PORCINE) 40 MG/0.4 ML DISP.SYRIN SQ SCH (09:36)
[2023-04-23] MEDS: PANTOPRAZOLE 20 MG TABLET PO SCH (09:37)
[2023-04-23] MEDS: MULTIVITAMINS (DAILY MVI) TABLET (FP) PO SCH (09:38)
[2023-04-23] MEDS: ESCITALOPRAM OXALATE 10 MG TABLET PO SCH (09:38)
[2023-04-23] MEDS: AMINO ACIDS/PROTEIN HYDROLYS 30 ML LIQUID.PKT PO SCH (09:38)
[2023-04-23] MEDS: MAGNESIUM OXIDE 400 MG TABLET (FP) PO SCH (09:38)
[2023-04-23] MEDS: COLLAGENASE CLOSTRIDIUM HIST. 30 GRAMS TUBE TP SCH (11:53)
[2023-04-23] MEDS ORDERED: FLUCONAZOLE 100 MG TABLET (UD) PO SCH (15:00)
[2023-04-23 15:56] VITALS: BP 93/60; PULSE 73; TEMP 97.8
== END 2023-04-23 17:00 | disposition home health service (06) | DRG 698 ==
LOC: JER 10:53 → JERBED 15:14 → J8W 04-14 01:16
PROVIDERS: ADMIT Internal Medicine; ATTEND Nurse Practitioner Acute Care
DX: T83.511A Infection and inflammatory reaction due to indwelling urethral catheter, initial encounter (principal); A41.9 Sepsis, unspecified organism; L89.154 Pressure ulcer of sacral region, stage 4; L89.224 Pressure ulcer of left hip, stage 4; G82.20 Paraplegia, unspecified; J90 Pleural effusion, not elsewhere classified; I73.9 Peripheral vascular disease, unspecified; D64.9 Anemia, unspecified; N31.9 Neuromuscular dysfunction of bladder, unspecified; C67.9 Malignant neoplasm of bladder, unspecified; N39.0 Urinary tract infection, site not specified; Y84.6 Urinary catheterization as the cause of abnormal reaction of the patient, or of later complication, without mention of misadventure at the time of the procedure; E78.5 Hyperlipidemia, unspecified; Z74.01 Bed confinement status; Z93.3 Colostomy status
CPT/HCPCS: 36415; 36430; 71045-TC-FY; 71260-TC; 74177-TC; 80053; 81003; 82803; 82977; 83605; 83735; 84100; 84484; 85025; 85610; 85651; 85730; 86140; 86850; 86870; 86900; 86901; 86902; 86922; 87081; 87086; 87186; 93005; 93010; 99291; 99292; J0475; P9058; Q9967